=== PATIENT | male | born 1950 | race Caucasian/White ===

== ENCOUNTER 2016-07-20 17:05 | Emergency (ER) | payer MEDICARE ==
--- NOTE | 2016-07-20 17:28 | ED ---
Abdominal Pain HPI - General Stated Complaint: constipation Time Seen by Provider: 07/20/16 17:08 Source: RN notes reviewed - History of Present Illness Initial Comments: Patient is a 65-year-old male presents to the emergency room for evaluation of abdominal pain and constipation. Patient states he hasn't had a bowel movement since yesterday. Patient states he has taken Dulcolax, magnesium citrate and water with no relief of symptoms. Patient states his tried to give him an enema with no relief of symptoms. Patient denies any history of abdominal surgeries or bowel obstructions. Patient also states over the past day he has been having trouble urinating. Patient states he's only able to urinate flat. Patient denies any pain or burning or blood in the urine. Patient denies nausea or vomiting. Patient denies headache or dizziness. Patient denies chest pain shortness of breath. Patient does state he takes [place] daily. Patient denies any changes in medications or diet. Patient denies fevers or chills. Patient states he is still able to pass gas. - Related Data Home Medications Medication Instructions Recorded Confirmed HYDROcodone/APAP 7.5-325MG [[place] 1 tab PO Q6HR 07/20/16 07/20/16 7.5-325] Ibuprofen [Motrin] 800 mg PO Q8H PRN 07/20/16 07/20/16 Lisinopril [Zestril] 10 mg PO DAILY 07/20/16 07/20/16 Montelukast [Singulair] 10 mg PO QAM 07/20/16 07/20/16 Multivitamins, Thera [Multivitamin 1 tab PO DAILY 07/20/16 07/20/16 (formulary)] Omeprazole 20 mg PO DAILY 07/20/16 07/20/16 Simvastatin [Zocor] 40 mg PO QAM 07/20/16 07/20/16 Vitamin E 100 unit PO DAILY 07/20/16 07/20/16 metFORMIN HCL [Glucophage] 500 mg PO BID-W/MEALS 07/20/16 07/20/16 Previous Rx's Medication Instructions Recorded Hydrocortisone Acetate [Anusol-Hc] 25 mg RC BID PRN #10 supp.rect 07/20/16 Peg 3350-Na Sulf,Bicarb,Cl/KCl 4,000 ml PO DIRECTED #1 bottle 07/20/16 [Golytely Lavage] Allergies Allergy/AdvReac Type Severity Reaction Status Date / Time No Known Allergies Allergy Verified 07/20/16 18:03 Review of Systems ROS Statement: Those systems with pertinent positive or pertinent negative responses have been documented in the HPI. ROS Other: All systems not noted in ROS Statement are negative. General Exam - General Exam Comments Initial Comments: Laying in exam room, no acute distress. Limitations: no limitations General appearance: alert, in no apparent distress Head exam: Present: atraumatic, normocephalic, normal inspection Eye exam: Present: normal appearance ENT exam: Present: normal exam Neck exam: Present: normal inspection Respiratory exam: Present: normal lung sounds bilaterally. Absent: respiratory distress Cardiovascular Exam: Present: regular rate, normal rhythm, normal heart sounds GI/Abdominal exam: Present: soft, tenderness (Right lower quadrant, left lower quadrant), normal bowel sounds. Absent: distended, guarding, rebound, rigid Extremities exam: Present: normal inspection Back exam: Present: normal inspection Neurological exam: Present: alert, oriented X3, CN II-XII intact, normal gait Psychiatric exam: Present: normal affect, normal mood Skin exam: Present: warm, dry, intact, normal color. Absent: rash Course Vital Signs 07/20/16 17:11 Temperature 98 F Pulse Rate 72 Respiratory 22 Rate Blood Pressure 163/78 O2 Sat by Pulse 96 Oximetry - Reevaluation(s) Reevaluation #1: 07/20/16 19:43 Patient had a large bowel movement after enema administration. Patient states she is feeling somewhat better but feels he can go more. Rectal exam performed , no impaction noted. Patient states he would like another enema. Medical Decision Making - Medical Decision Making Patient is 65-year-old male presents to the emergency room for evaluation of constipation. Patient was given an enema with slight relief of symptoms. Patient requested a second enema. Patient was given a second enema again with some relief of symptoms. Patient is no longer complaining of abdominal pain. Patient now beginning to complain of rectal pain. Patient states he is able to urinate but only while lying flat. Urinalysis showed findings. Other labs showed no significant findings. Will send patient home with Golytely as needed and Anusol for rectal pain. Advised patient to follow-up with his primary care provider for reevaluation in 24-48 hours. Patient states he understands everything that was discussed with him. Return parameters discussed. Case discussed with Dr. Brunson. - Lab Data Result diagrams: 07/20/16 17:37 07/20/16 17:37 Lab Results 07/20/16 07/20/16 07/20/16 Range/Units 17:37 17:37 17:37 WBC 12.5 H (3.8-10.6) k/uL RBC 4.64 (4.30-5.90) m/uL Hgb 14.3 (13.0-17.5) gm/dL Hct 41.9 (39.0-53.0) % MCV 90.2 (80.0-100.0) fL MCH 30.9 (25.0-35.0) pg MCHC 34.2 (31.0-37.0) g/dL RDW 13.1 (11.5-15.5) % Plt Count 220 (150-450) k/uL Neutrophils % (Manual) 80.0 % Lymphocytes % (Manual) 12.0 % Monocytes % (Manual) 7.0 % Eosinophils % (Manual) 1.0 % Neutrophils # (Manual) 10.0 H (1.3-7.7) k/uL Lymphocytes # (Manual) 1.5 (1.0-4.8) k/uL Monocytes # (Manual) 0.9 (0-1.0) k/uL Eosinophils # (Manual) 0.1 (0-0.7) k/uL Nucleated RBCs 0 (0-0) /100 WBC Manual Slide Review Performed Sodium 136 L (137-145) mmol/L Potassium 3.8 (3.5-5.1) mmol/L Chloride 101 (98-107) mmol/L Carbon Dioxide 25 (22-30) mmol/L Anion Gap 10 mmol/L BUN 14 (9-20) mg/dL Creatinine 0.71 (0.66-1.25) mg/dL Est GFR (MDRD) Af Amer >60 (>60 ml/min/1.73 sqM) Est GFR (MDRD) Non-Af >60 (>60 ml/min/1.73 sqM) Glucose 123 H (74-99) mg/dL Calcium 9.3 (8.4-10.2) mg/dL Total Bilirubin 0.7 (0.2-1.3) mg/dL AST 35 (17-59) U/L ALT 35 (21-72) U/L Alkaline Phosphatase 56 (38-126) U/L Total Protein 7.9 (6.3-8.2) g/dL Albumin 4.4 (3.5-5.0) g/dL Amylase 48 (30-110) U/L Lipase 100 (23-300) U/L Urine Color Light Yellow Urine Appearance Clear (Clear) Urine pH 5.5 (5.0-8.0) Ur Specific [place] 1.009 (1.001-1.035) Urine Protein Negative (Negative) Urine Glucose (UA) Negative (Negative) Urine Ketones Negative (Negative) Urine Blood Negative (Negative) Urine Nitrite Negative (Negative) Urine Bilirubin Negative (Negative) Urine Urobilinogen <2.0 (<2.0) mg/dL Ur Leukocyte Esterase Negative (Negative) - Radiology Data Radiology results: report reviewed, image reviewed Disposition Clinical Impression: Constipation Disposition: HOME SELF-CARE Condition: Good Instructions: Constipation (ED), High Fiber Diet (ED) Additional Instructions: Drink plenty of water. Please follow up with primary care provider in 1-2 days. If any new symptom arises or symptoms worsen, return to ER as soon as possible. Prescriptions: Hydrocortisone Acetate [Anusol-Hc] 25 mg RC BID PRN #10 supp.rect PRN Reason: Pain Peg 3350-Na Sulf,Bicarb,Cl/KCl [Golytely Lavage] 4,000 ml PO DIRECTED #1 bottle Referrals: Andrea Manzano DO [Primary Care Provider] - 1-2 days Time of Disposition: 20:50
[2016-07-20 17:51] LABS: Appearance,Urine Clear (Clear); Bilirubin,Urine Negative (Negative); Glucose,Urine (UA) Negative (Negative); Ketones,Urine Negative (Negative); Leukocyte Esterase,Urine Negative (Negative); Nitrite,Urine Negative (Negative); PH, Urine 5.5 (5.0-8.0); Protein,Urine Negative (Negative); Specific Gravity,Urine 1.009 (1.001-1.035); UA Billing (MACRO vs. MICRO) CHEM; Urobilinogen,Urine <2.0 mg/dL (<2.0)
[2016-07-20 17:55] LABS: ALT 35 U/L (21-72); AST 35 U/L (17-59); Alkaline Phosphatase 56 U/L (38-126); Amylase 48 U/L (30-110); Anion Gap 10 mmol/L; Blood Urea Nitrogen 14 mg/dL (9-20); Calcium 9.3 mg/dL (8.4-10.2); Carbon Dioxide 25 mmol/L (22-30); Chloride 101 mmol/L (98-107); Glucose 123 mg/dL (74-99); Non-African American GFR(MDRD) >60 (>60 ml/min/1.73 sqM); Potassium 3.8 mmol/L (3.5-5.1); Sodium 136 mmol/L (137-145); Total Bilirubin 0.7 mg/dL (0.2-1.3); Total Protein 7.9 g/dL (6.3-8.2)
[2016-07-20 17:57] LABS: Aty Lym Flag Slight; CH 32.3; CHCM 35.9; HCT 41.9 % (39.0-53.0); HDW 2.82; HGB 14.3 gm/dL (13.0-17.5); MCH 30.9 pg (25.0-35.0); MCHC 34.2 g/dL (31.0-37.0); MCV 90.2 fL (80.0-100.0); MPO Flag Slight; Mean Platelet Volume 6.4; RBC 4.64 m/uL (4.30-5.90); RDW 13.1 % (11.5-15.5); WBC 12.5 k/uL (3.8-10.6); WBC (Perox) 12.61
--- NOTE | 2016-07-20 18:13 | XR ---
EXAMINATION TYPE: XR abdomen 2V DATE OF EXAM: 07/20/2016 5:55 PM COMPARISON: 07/26/2013 HISTORY: Abdominal pain TECHNIQUE: 4 views FINDINGS: There is no sign of intestinal obstruction or pneumoperitoneum. There are no pathologic edvin cifications over the kidneys. Lung bases are clear. There are some fluid levels apparently at the hep atic flexure of the colon. IMPRESSION: There are are probably colonic air-fluid levels consistent with diarrhea. No free air. Fl uid appears new compared to old exam.
[2016-07-20 19:00] LABS: Add Differential Manual Differential
[2016-07-20 19:05] LABS: Manual Review Performed; Nucleated Red Blood Cells 0 /100 WBC (0-0); Total Cells Counted 100
[2016-07-20 21:17] VITALS: BP 129/70; PULSE 69; RESP 18; TEMP 98.6
== END 2016-07-20 21:17 | disposition home or self-care (01) ==
LOC: EC 17:05
DX: K59.00 Constipation, unspecified (principal); K62.89 Other specified diseases of anus and rectum; Z79.899 Other long term (current) drug therapy; Z79.891 Long term (current) use of opiate analgesic; Z79.84 Long term (current) use of oral hypoglycemic drugs
CPT/HCPCS: 36415; 74020; 80053; 81003; 82150; 83690; 85025; 99284

== ENCOUNTER → 2016-09-03 | Outpatient (CLI) | payer MEDICARE ==
[2016-09-03 13:06] LABS: EKG EKG PERFORMED
[2016-09-03 13:24] LABS: Aty Lym Flag Slight; CH 31.9; CHCM 34.7; HCT 44.6 % (39.0-53.0); HDW 2.58; HGB 15.6 gm/dL (13.0-17.5); MCH 32.4 pg (25.0-35.0); MCHC 35.1 g/dL (31.0-37.0); MCV 92.3 fL (80.0-100.0); MPO Flag Slight; Mean Platelet Volume 6.7; RBC 4.84 m/uL (4.30-5.90); WBC 12.8 k/uL (3.8-10.6); WBC (Perox) 12.67
[2016-09-03 13:25] LABS: Appearance,Urine Clear (Clear); Bilirubin,Urine Negative (Negative); Glucose,Urine (UA) Negative (Negative); Ketones,Urine Negative (Negative); Leukocyte Esterase,Urine Negative (Negative); Nitrite,Urine Negative (Negative); Protein,Urine Negative (Negative); Specific Gravity,Urine 1.019 (1.001-1.035); UA Billing (MACRO vs. MICRO) CHEM; Urobilinogen,Urine <2.0 mg/dL (<2.0)
[2016-09-03 13:29] LABS: Anion Gap 10 mmol/L; Blood Urea Nitrogen 19 mg/dL (9-20); Calcium 9.5 mg/dL (8.4-10.2); Carbon Dioxide 26 mmol/L (22-30); Chloride 102 mmol/L (98-107); Glucose 168 mg/dL (74-99); Non-African American GFR(MDRD) >60 (>60 ml/min/1.73 sqM); Potassium 3.9 mmol/L (3.5-5.1); Sodium 138 mmol/L (137-145)
[2016-09-03 13:30] LABS: Partial Thromboplastin Time 23.2 sec (22.0-30.0)
--- NOTE | 2016-09-03 14:09 | XR ---
EXAMINATION TYPE: XR chest 2V DATE OF EXAM: 09/03/2016 HISTORY: Z01.818 Pre surgical. REFERENCE: NONE. FINDINGS: The lungs are clear. Pleural space are clear. Heart size is upper limits of normal. IMPRESSION: NO ACTIVE INTRATHORACIC ABNORMALITY.
[2016-09-03 14:19] LABS: Add Differential Manual Differential
[2016-09-03 14:21] LABS: Manual Review Performed; Nucleated Red Blood Cells 0 /100 WBC (0-0); RBC Morphology Normal; Total Cells Counted 100
== END | disposition home or self-care (01) ==
LOC: LABWHC1 12:43
PROVIDERS: ATTEND Orthopaedic Surgery Orthopaedic Surgery of the Spine
DX: Z01.818 Encounter for other preprocedural examination (principal); Z01.812 Encounter for preprocedural laboratory examination; M54.12 Radiculopathy, cervical region
CPT/HCPCS: 71020; 80048; 81003; 85025; 85610; 85730; 86850; 86900; 86901; 93005

== ENCOUNTER 2016-09-09 10:15 | Inpatient (IN) | payer MEDICARE ==
[2016-09-04 15:10] VITALS: BMI 38.9
[~2016-09-09 10:15] MED LIST: BACITRACIN 50,000 UNIT, POLYMYXIN B 500,000 UNIT in SODIUM CHLORIDE 0.9% IRRIGATIO 1,00... IRRIGATION ONE; DEXAMETHASONE SOD PHOSPHATE 10 MG/ML 1 ML VIAL IV ONE; FAMOTIDINE 20 MG/2 ML VIAL IV PRN; LIDOCAINE 1% 20 ML VIAL (10MG/ML) FOR IV START INTRADERMA PRN; MIDAZOLAM 2 MG/2 ML VIAL IV PRN; ONDANSETRON 4 MG/2 ML VIAL IVP PRN; ceFAZolin 3 GM in SODIUM CHLORIDE 0.9% 100 ML IVPB ONE
[2016-09-09] MEDS ORDERED: LIDOCAINE 1% 20 ML VIAL (10MG/ML) FOR IV START INTRADERMA ONE (11:09)
[2016-09-09] MEDS: LACTATED RINGERS 1,000 ML IV SCH (11:09)
[2016-09-09 11:19] LABS: Glucose,Whole Blood 115 mg/dL (75-99)
[2016-09-09] MEDS ORDERED: PHENYLEPHRINE-0.9% NACL SYG 1 MG/10 ML SYRINGE ONE (11:44)
[2016-09-09] MEDS ORDERED: GELATIN SPONGE,ABSORB (LARGE) 1 EACH SPONGE TOPICAL ONE (11:44)
[2016-09-09] MEDS ORDERED: MIDAZOLAM 2 MG/2 ML VIAL ONE (11:44)
[2016-09-09] MEDS ORDERED: DEXAMETHASONE SOD PHOS (MDV) 100 MG/10 ML VIAL ONE (11:44)
[2016-09-09] MEDS ORDERED: LIDOCAINE 1% INJ 10MG/ML (20 ML MDV) ONE (11:44)
[2016-09-09] MEDS ORDERED: LIDOCAINE 0.5%-EPI 1:200,000 50 ML VIAL SQ ONE (11:44)
[2016-09-09] MEDS ORDERED: SUCCINYLCHOLINE CHLORIDE VIAL 200 MG/10 ML VIAL IV ONE (11:44)
[2016-09-09] MEDS ORDERED: THROMBIN (BOVINE) 5,000 UNIT VIAL TOPICAL ONE (11:44)
[2016-09-09] MEDS ORDERED: fentaNYL (PF) 50 MCG/ML 2 ML AMP ONE (11:44)
[2016-09-09] MEDS ORDERED: PROPOFOL 10 MG/ML 20 ML VIAL IV ONE (11:44)
[2016-09-09] MEDS ORDERED: ePHEDrine 50 MG/ML 1 ML AMP ONE (11:44)
[2016-09-09] MEDS ORDERED: LACTATED RINGERS 1,000 ML IV ONE (12:47)
--- NOTE | 2016-09-09 13:12 | XR ---
Cervical spine HISTORY: Needle placement Single lateral view of the cervical spine No comparisons There is a needle present within the intervertebral disc space C5-6. Endotracheal tube is in place. T here is multiple level spondylosis. Incomplete visualization of the entire cervical spine. IMPRESSION: Orthopedic localization.
[2016-09-09] MEDS ORDERED: BENZOCAINE/MENTHOL LOZENG 1 EACH LOZENGE MUCOUS MEM PRN (13:22)
[2016-09-09] MEDS ORDERED: HYDROcodone/APAP 5-325MG 1 EACH TAB PO PRN (13:22)
[2016-09-09] MEDS ORDERED: HYDROmorphone 1 MG/ML 1 ML SYRINGE IVP PRN (13:22)
[2016-09-09] MEDS ORDERED: DIAZEPAM 5 MG TAB PO PRN (13:22)
--- NOTE | 2016-09-09 13:29 | P.OP ---
Date of Procedure: 09/09/16 Preoperative Diagnosis: Cervical stenosis C5 6, degenerative disc disease C5 6, and pain with lower extremity radiculopathy, history of prior fusion C6 7 Postoperative Diagnosis: Same Procedure(s) Performed: Implants: Anesthesia: GETA Pathology: none sent Condition: stable Disposition: PACU Indications for Procedure: Operative Findings: Description of Procedure: BRIEF OPERATIVE NOTE Preoperative Diagnosis: Cervical stenosis C5 6, degenerative disc disease 6, history of prior fusion C6 7, neck pain with upper extremity radiculopathy Postoperative Diagnosis: Same Procedure: Anterior cervical decompression and with discectomy fusion C5 6 Placement of interbody graft, allograft C5 6 Application of anterior cervical plate C5 6 Surgeon: Dr. Madsen Customer Contact Specialist: Dagoberto Baird is present throughout the entire the case persistence during positioning, dissection, exposure, visualization, and all crucial elements of the case as well as closure. Anesthesia: General anesthesia per Dr. Orosco Estimated blood loss: Approximately 50 mL Complications: None apparent Components implanted: K2M [place] anterior cervical plate system with 4 screws and a V Kos interbody allograft bone graft Disposition: To recovery room in good stable condition. OPERATIVE INDICATIONS The patient has had long-standing issues in their neck and upper extremities. More than 20 years ago he had undergone anterior cervical fusion at the C6 7 level. He ultimately did well with that procedure however over the past year he been having worsening symptoms in his neck with increased worsening over the past few months. His found have significant adjacent level degeneration at C5 6 with large osteophytic spurring and stenosis which correlated well with his neck and upper extremity symptoms. The patient has been through conservative treatment. He is not having any prolonged benefit despite aggressive conservative treatment. We discussed various treatment options including surgery, and the patient wishes to proceed with surgery We discussed the risk, patient's alternatives and benefits of surgery including but not limited to, risk of bleeding risk of infection, risk of need for further surgery, risk of decreased, loss of motion, muscle function, malunion nonunion, hardware failure , nerve damage, paralysis, heart attack, and . OPERATIVE SUMMARY After discussing all the risks, patient alternatives and benefits at length, the patient elected to proceed with surgical intervention, signed informed consent, and presented for their procedure. The patient was seen and examined in the preoperative holding area and the surgical site was marked. The patient was given antibiotics and brought to the operating room. The patient was positioned on the operating room table in a supine position being careful to pad any bony prominences and pressure points. The patient was sedated and intubated by anesthesia in standard fashion. Once the airway and C- spine were stabilized the patient's arms were padded and tucked at her side, with her shoulders gently taped. The head was placed in a donut pad with the neck in good neutral alignment and position. We were careful to maintain the patient's cervical spine and good neutral alignment and position throughout. The patient was prepped and draped in a normal standard fashion. An appropriate timeout and keystone protocol performed. We were able to proceed with the surgery. The local wound area was infiltrated with local anesthetic. An incision was made transversely approximately 2-1/2 cm over the appropriate levels at C5 6 on the right which was cephalad to his prior incision. Dissection was taken down subcutaneously to the level of the platysma which was split in line with its fibers. There was significant scar tissue formation and care was taken to protect soft tissue structures. Dissection was taken with a carotid approach, with the trachea and esophagus medial and the carotid sheath laterally. We dissected down to the anterior surface of the vertebral bodies. There are large osteophytes at the anterior aspect C5 6. Intraoperative x-ray was taken which showed a marker at the appropriate level of C5 6, though it is somewhat difficult to very clearly visualized we were able to see appropriately. With the appropriate level positively confirmed, we were able to proceed with discectomy at the appropriate levels of C5 6. All of the operative levels were exposed appropriately. The patient had all their twitches back, and there was no evidence of recurrent laryngeal issue. The wound was copiously irrigated and suctioned dry as had been done periodically throughout the case. At the appropriate level/levels, I established an annulotomy with an 11 blade scalpel. A discectomy was performed with a combination of pituitary rongeurs, curettes, a high-speed bur, and Kerrison rongeurs. The posterior longitudinal ligament was taken down as were any posterior osteophytes. There is significant disc degeneration and stenosis noted which was resolved with the decompression. This gave good central and bilateral foraminal decompression. There is no evidence of any dural tear or leak. The endplates were prepared with a high-speed bur. With the endplates in good parallel position, I was able to size for the appropriate size interbody graft. The wound was irrigated and suctioned dry the graft was prepared and malleted into position. It had good alignment and position with the anterior surface flush with the anterior surface of the vertebral bodies. This was done similarly the appropriate levels. With the grafts intact, I was able to measure and contour and appropriate sized plate. The plate was positioned at the midline over the appropriate levels at C5 6. Screw holes were established with a hand drill and drill guide. Screws were placed in good alignment and position with excellent bony purchase. They were seated under the locking device. The construct was checked and found to be stable. Intraoperative x-ray was taken which showed good alignment and position of the implants at the appropriate levels. There was no evidence of any dural tear or leak. Good hemostasis was maintained. The wound was copiously irrigated and suctioned dry as had been done periodically throughout the case. The platysma was closed with absorbable suture. The subcutaneous tissue was closed. The subcuticular tissue was closed with absorbable suture. The wound was cleaned and dried and dressed appropriately. A soft cervical collar was placed appropriately. The patient was woken up by anesthesia, extubated, transferred back gently to their hospital bed and brought to the recovery room in good stable condition. The patient will be admitted to the hospital for appropriate postoperative care , medical management and monitoring. We will continue to follow them closely about the postoperative course.
[2016-09-09 13:42] LABS: Glucose,Whole Blood 128 mg/dL (75-99)
[2016-09-09] MEDS: HYDROmorphone 1 MG/ML 1 ML SYRINGE IVP PRN ×4 (13:57→20:36)
[2016-09-09 17:18] LABS: Glucose,Whole Blood 187 mg/dL (75-99)
[2016-09-09] MEDS ORDERED: metFORMIN 500 MG TAB PO SCH (17:30)
[2016-09-09] MEDS: HYDROcodone/APAP 7.5-325MG 1 EACH TAB PO PRN ×2 (17:56→23:56)
[2016-09-09] MEDS: SODIUM CHLORIDE 0.9% 1,000 ML IV SCH (18:12)
[2016-09-09 20:44] VITALS: RESP 16
[2016-09-09 21:12] LABS: Glucose,Whole Blood 223 mg/dL (75-99)
[2016-09-09] MEDS: ceFAZolin 3 GM in SODIUM CHLORIDE 0.9% 100 ML IVPB SCH (21:56)
[2016-09-09 23:54] LABS: Glucose,Whole Blood 188 mg/dL (75-99)
[2016-09-10] MEDS: HYDROmorphone 1 MG/ML 1 ML SYRINGE IVP PRN (02:14)
[2016-09-10] MEDS: SODIUM CHLORIDE 0.9% 1,000 ML IV SCH (04:06)
[2016-09-10] MEDS: ceFAZolin 3 GM in SODIUM CHLORIDE 0.9% 100 ML IVPB SCH (04:07)
[2016-09-10] MEDS: LACTATED RINGERS 1,000 ML IV SCH (04:09)
[2016-09-10 06:57] LABS: Glucose,Whole Blood 128 mg/dL (75-99)
[2016-09-10] MEDS: HYDROcodone/APAP 7.5-325MG 1 EACH TAB PO PRN (07:15)
[2016-09-10] MEDS ORDERED: PANTOPRAZOLE 40 MG TABLET PO SCH (07:30)
--- NOTE | 2016-09-10 07:34 | XR ---
Cervical spine HISTORY: Hardware placement Single lateral view of the cervical spine submitted. Comparison to previous exam on same date earlier time. Endotracheal tube is in place. Anterior cervical fusion and discectomy has been performed at C5-6, fi xation is not well seen secondary to superimposed soft tissues. Alignment thought to be anatomic. IMPRESSION: Orthopedic follow-up.
[2016-09-10 08:03] VITALS: BP 132/63; PULSE 60; TEMP 97
[2016-09-10] MEDS ORDERED: LISINOPRIL 10 MG TAB PO SCH (09:00)
[2016-09-10] MEDS ORDERED: SENNOSIDES-DOCUSATE SODIUM 1 EACH TAB PO SCH ×2 (09:00)
[2016-09-10] MEDS ORDERED: MONTELUKAST 10 MG TAB PO SCH (09:00)
[2016-09-10] MEDS ORDERED: ATORVASTATIN 10 MG TAB PO SCH (09:00)
--- NOTE | 2016-09-10 09:38 | P.DS ---
Providers Date of admission: 09/09/16 10:15 Attending physician: Delia Madsen Primary care physician: [facility] Course: The patient presented on the day of admission as per his operative note. He feels that his right upper extremity significantly improved in terms of pain. His neck is doing well and he has been able tolerate diet though he has some some mild sore throat. Physical Exam The incision site is clean dry and intact. There is no erythema no drainage. There is no purulence no evidence of infection. His neck is soft and supple there is no drainage. Abdomen soft and nontender. Chest has good excursion with deep inspiration and expiration. The patient has active and passive range of motion intact at the upper and lower extremities. There is no acute change in neurologic status. 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 Hospital Course Postoperative day #1 status post anterior cervical discectomy and fusion at C67 for his cervical stenosis with degenerative disc disease and upper extremity radiculopathy. The patient has been making good progress postoperatively. His arm symptoms have improved and his Use these results thus far They have completed the prophylactic antibiotics without any signs or symptoms of infection. The patient has been able to advance their diet, and is tolerating diet adequately. The pain was initially controlled with IV medications and is now controlled appropriately with oral medications. The patient has been able to increase their mobilization. The patient has progressed appropriately. I think they are in good stable condition for discharge today. They will be sent home with appropriate prescriptions. I answered their questions to the best of my ability in a language that they can understand and they are agreeable with the plan. They will follow up as directed in approximately 2 weeks or sooner if he is having any problems. Patient Condition at Discharge: Good Plan - Discharge Summary New Discharge Prescriptions: New Diazepam [Valium] 5 mg PO BID PRN #20 tab PRN Reason: Spasms HYDROcodone/APAP 7.5-325MG [[place] 7.5-325] 1 tab PO Q6HR PRN #90 tab PRN Reason: Pain No Action Multivitamins, Thera [Multivitamin (formulary)] 1 tab PO DAILY metFORMIN HCL [Glucophage] 500 mg PO Q2D Simvastatin [Zocor] 20 mg PO QAM Omeprazole 20 mg PO DAILY Montelukast [Singulair] 10 mg PO QAM Lisinopril [Zestril] 10 mg PO DAILY Ibuprofen [Motrin] 800 mg PO Q8H PRN PRN Reason: Pain HYDROcodone/APAP 7.5-325MG [[place] 7.5-325] 1 tab PO Q6HR PRN PRN Reason: Pain Vitamin E 100 unit PO DAILY Bisacodyl [Dulcolax] 5 mg PO DAILY Discharge Medication List HYDROcodone/APAP 7.5-325MG [[place] 7.5-325] 1 tab PO Q6HR PRN 07/20/16 [History] Ibuprofen [Motrin] 800 mg PO Q8H PRN 07/20/16 [History] Lisinopril [Zestril] 10 mg PO DAILY 07/20/16 [History] Montelukast [Singulair] 10 mg PO QAM 07/20/16 [History] Multivitamins, Thera [Multivitamin (formulary)] 1 tab PO DAILY 07/20/16 [History ] Omeprazole 20 mg PO DAILY 07/20/16 [History] Simvastatin [Zocor] 20 mg PO QAM 07/20/16 [History] Vitamin E 100 unit PO DAILY 07/20/16 [History] metFORMIN HCL [Glucophage] 500 mg PO Q2D 07/20/16 [History] Bisacodyl [Dulcolax] 5 mg PO DAILY 09/04/16 [History] Diazepam [Valium] 5 mg PO BID PRN #20 tab 09/10/16 [Rx] HYDROcodone/APAP 7.5-325MG [[place] 7.5-325] 1 tab PO Q6HR PRN #90 tab 09/10/16 [ Rx] Follow up Appointment(s)/Referral(s): Delia Madsen DO [Doctor of Osteopathic Medicine] - 2 Weeks (With Dagoberto Khalil at Dr. Madsen's office) Activity/Diet/Wound Care/Special Instructions: Keep dressing clean. May shower with waterproof Tegaderm intact. Do not soak in a tub. On Wednesday May remove dressing and then may shower with area uncovered. Keep Steri-Strips intact and allow them to fray off on their own. Avoid heavy or rigorous activity. May ambulate to tolerance. Avoid repetitive bending twisting or lifting. No overhead activity.
[2016-09-10] MEDS ORDERED: MULTIVITAMINS, THERA 1 EACH TAB PO SCH (12:00)
== END 2016-09-10 12:55 | disposition home or self-care (01) | DRG 473 ==
LOC: 2ORMAIN 10:15 → 3SUR 13:30
PROVIDERS: ADMIT Family Medicine; ATTEND Orthopaedic Surgery Orthopaedic Surgery of the Spine
PROC: 0RB30ZZ Excision of Cervical Vertebral Disc, Open Approach (ICD-10-PCS; 2016-09-09)
PROC: 0RG10K0 Fusion of Cervical Vertebral Joint with Nonautologous Tissue Substitute, Anterior Approach, Anterior Column, Open Approach (ICD-10-PCS; principal; 2016-09-09 12:20)
DX: M48.02 Spinal stenosis, cervical region (principal); I10 Essential (primary) hypertension; Z98.1 Arthrodesis status; M50.122 Cervical disc disorder at C5-C6 level with radiculopathy; H91.90 Unspecified hearing loss, unspecified ear; E11.9 Type 2 diabetes mellitus without complications; Z79.84 Long term (current) use of oral hypoglycemic drugs; Z79.899 Other long term (current) drug therapy; Z87.891 Personal history of nicotine dependence
CPT/HCPCS: 72020; 86850; 86900; 86901

== ENCOUNTER 2019-08-15 19:35 | Emergency (ER) | payer MEDICARE ==
[2019-08-15 19:44] VITALS: RESP 18; TEMP 98.2
--- NOTE | 2019-08-15 19:59 | ED ---
Extremity Problem HPI - General Chief complaint: Extremity Problem,Nontraumatic Stated complaint: Leg Pain/Swelling Time Seen by Provider: 08/15/19 19:49 Source: patient, RN notes reviewed Mode of arrival: ambulatory Limitations: no limitations - History of Present Illness Initial comments: 69-year-old male presents emergency Department with chief complaint of right leg pain, swelling. Patient states she's had some soreness for last 1 week. 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 Patient states he has to get out unloading move things frequently he may have injured it this way there is concern about possible blood clot no history DVT no chest pain or shortness breath. - Related Data Home Medications Medication Instructions Recorded Confirmed HYDROcodone/APAP 7.5-325MG [[place] 1 tab PO Q6HR PRN 07/20/16 09/09/16 7.5-325] Ibuprofen [Motrin] 800 mg PO Q8H PRN 07/20/16 09/09/16 Lisinopril [Zestril] 10 mg PO DAILY 07/20/16 09/09/16 Montelukast [Singulair] 10 mg PO QAM 07/20/16 09/09/16 Multivitamins, Thera [Multivitamin 1 tab PO DAILY 07/20/16 09/09/16 (formulary)] Omeprazole 20 mg PO DAILY 07/20/16 09/09/16 Simvastatin [Zocor] 20 mg PO QAM 07/20/16 09/09/16 Vitamin E 100 unit PO DAILY 07/20/16 09/09/16 metFORMIN HCL [Glucophage] 500 mg PO Q2D 07/20/16 09/09/16 Bisacodyl [Dulcolax] 5 mg PO DAILY 09/04/16 09/09/16 Previous Rx's Medication Instructions Recorded Diazepam [Valium] 5 mg PO BID PRN #20 tab 09/10/16 HYDROcodone/APAP 7.5-325MG [[place] 1 tab PO Q6HR PRN #90 tab 09/10/16 7.5-325] Allergies Allergy/AdvReac Type Severity Reaction Status Date / Time Iodinated Contrast Media AdvReac BODY FELT Verified 09/04/16 14:39 [Iodinated Contrast Media - FROZEN Oral and] Review of Systems ROS Statement: Those systems with pertinent positive or pertinent negative responses have been documented in the HPI. ROS Other: All systems not noted in ROS Statement are negative. Past Medical History Past Medical History: Diabetes Mellitus, GERD/Reflux, Hearing Disorder / Deafness, Hyperlipidemia, Hypertension, Musculoskeletal Disorder Additional Past Medical History / Comment(s): RT UPPER ARM NT. PAIN IN NECK, LOWER BACK - HX OF PAIN INJ.. History of Any Multi-Drug Resistant Organisms: MRSA Date of last positivie culture/infection: 2006 MDRO Source:: RT WAISTLINE, TESTICLE Past Surgical History: Orthopedic Surgery Additional Past Surgical History / Comment(s): Repaired ruptured disks in back. Right knee surgery. Bilat shoulder surgery. Past Anesthesia/Blood Transfusion Reactions: No Reported Reaction Past Psychological History: No Psychological Hx Reported Past Alcohol Use History: None Reported - Past Family History Father Family Medical History: Cancer Mother Family Medical History: Cancer General Exam Limitations: no limitations General appearance: alert, in no apparent distress Head exam: Present: atraumatic, normocephalic, normal inspection Neck exam: Present: normal inspection. Absent: tenderness, meningismus, lymphadenopathy Respiratory exam: Present: normal lung sounds bilaterally. Absent: respiratory distress, wheezes, rales, rhonchi, stridor Cardiovascular Exam: Present: regular rate, normal rhythm, normal heart sounds. Absent: systolic murmur, diastolic murmur, rubs, gallop, clicks Extremities exam: Present: other (Right lower extremity there is minimal tenderness to the calf, minimal swelling no erythema no lesions or sores, pedal pulses are equal bilaterally. Equal color equal warmth) Neurological exam: Present: reflexes normal. Absent: motor sensory deficit Skin exam: Present: warm, dry, intact, normal color. Absent: rash Course Vital Signs 08/15/19 19:39 Temperature 98.2 F Pulse Rate 93 Respiratory 18 Rate Blood Pressure 150/87 O2 Sat by Pulse 98 Oximetry Medical Decision Making - Medical Decision Making US neg FOR ACUTE DVT. SYMPTOMS ARE CONSISTENT WITH A RIGHT LEG STRAIN. PULSES ARE EQUAL BILATERALLY NEUROVASCULAR INTACT. PATIENT BE DISCHARGED WITH CONSERVATIVE TREATMENT. FOLLOW-UP WAS DISCUSSED. Disposition Clinical Impression: Muscle strain of right lower leg, Right leg pain Disposition: HOME SELF-CARE Condition: Stable Instructions (If sedation given, give patient instructions): Leg Pain (ED) Additional Instructions: Please return to the Emergency Department if symptoms worsen or any other concerns. Is patient prescribed a controlled substance at d/c from ED?: No Referrals: Andrea Manzano DO [Primary Care Provider] - 1-2 days Time of Disposition: 21:37
--- NOTE | 2019-08-15 21:35 | US ---
EXAMINATION TYPE: US venous doppler duplex LE RT DATE OF EXAM: 08/15/2019 9:15 PM COMPARISON: NONE CLINICAL HISTORY: pain. Pain and swelling x 1 day. No hx of DVT. Multiple right knee surgeries. Patie nt does not take blood thinners. SIDE PERFORMED: Right TECHNIQUE: The lower extremity deep venous system is examined utilizing real time linear array sonog lisha with graded compression, doppler sonography and color-flow sonography. VESSELS IMAGED: External Iliac Vein (EIV) Common Femoral Vein Deep Femoral Vein Greater Saphenous Vein * Femoral Vein Popliteal Vein Small Saphenous Vein * Proximal Calf Veins (* superficial vessels) Right Leg: No evidence of DVT in veins imaged at this time from prox calf veins to EIV. IMPRESSION: Negative exam. No evidence of deep vein thrombosis in the right leg.
[2019-08-15 21:58] VITALS: BP 164/90; PULSE 82
== END 2019-08-15 20:50 | disposition home or self-care (01) ==
LOC: EC 19:35
DX: S86.911A Strain of unspecified muscle(s) and tendon(s) at lower leg level, right leg, initial encounter (principal); E11.9 Type 2 diabetes mellitus without complications; E78.5 Hyperlipidemia, unspecified; I10 Essential (primary) hypertension; K21.9 Gastro-esophageal reflux disease without esophagitis; Z91.041 Radiographic dye allergy status; Z79.899 Other long term (current) drug therapy; Z79.84 Long term (current) use of oral hypoglycemic drugs; Z98.890 Other specified postprocedural states; Z86.14 Personal history of Methicillin resistant Staphylococcus aureus infection; X50.9XXA Other and unspecified overexertion or strenuous movements or postures, initial encounter
CPT/HCPCS: 99283

== ENCOUNTER → 2019-12-27 | Outpatient (CLI) | payer MEDICARE ==
[2019-12-27 09:01] LABS: Basophils % (A) 1 %; Eosinophils # (A) 0.2 k/uL (0-0.7); Eosinophils % (A) 3 %; HCT 46.5 % (39.0-53.0); HGB 15.5 gm/dL (13.0-17.5); Lymphocytes # (A) 1.8 k/uL (1.0-4.8); Lymphocytes % (A) 26 %; MCHC 33.3 g/dL (31.0-37.0); MCV 93.2 fL (80.0-100.0); Mean Platelet Volume 6.8; Monocytes # (A) 0.7 k/uL (0-1.0); Monocytes % (A) 9 %; Neutrophils # (A) 4.1 k/uL (1.3-7.7); Neutrophils % (A) 57 %; Platelet Count 284 k/uL (150-450); RBC 4.98 m/uL (4.30-5.90); RDW 13.1 % (11.5-15.5); WBC 7.1 k/uL (3.8-10.6)
[2019-12-27 18:22] LABS: African American GFR (CKD) 107.1 (60.0-200.0); Albumin 4.3 g/dL (3.80-4.90); Albumin/Globulin Ratio 1.79 (1.60-3.17); Anion Gap 10.1 mmol/L (4.00-12.00); BUN/Creat Ratio 18.75 Ratio (12.00-20.00); Calcium 9.1 mg/dL (8.7-10.3); Carbon Dioxide 22.9 mmol/L (21.6-31.8); Chol/HDL Ratio 4.02; Globulin 2.4 g/dL (1.6-3.3); LDL Cholesterol,Calculated 117.8 mg/dL (0.0-131.0); Non-African American GFR(CKD) 92.4 (60.0-200.0); Potassium 4.2 mmol/L (3.5-5.5); Total Bilirubin 0.5 mg/dL (0.3-1.2); Total Protein 6.7 g/dL (6.2-8.2); VLDL Calculation 18.2 mg/dL (5.00-40.00)
[2019-12-27 18:36] LABS: PSA Annual Screen 0.2 ng/mL (0.0-4.0)
[2019-12-27 21:19] LABS: Hemoglobin A1C 6.8 % (4.0-6.0)
== END | disposition home or self-care (01) ==
LOC: LABWHC1 07:28
PROVIDERS: ATTEND Family Medicine
DX: Z00.00 Encounter for general adult medical examination without abnormal findings (principal); I10 Essential (primary) hypertension; E11.9 Type 2 diabetes mellitus without complications; E78.5 Hyperlipidemia, unspecified; Z12.5 Encounter for screening for malignant neoplasm of prostate
CPT/HCPCS: 84439; 80061; 80053; 84443; 85025; 83036; 36415; G0103

== ENCOUNTER 2022-03-20 21:38 | Inpatient (IN) | payer MEDICARE ==
[2022-03-20] MEDS ORDERED: MORPHINE SULFATE 4 MG/ML SYRINGE IV STA (21:58)
[2022-03-20] MEDS ORDERED: ONDANSETRON 4 MG/2 ML VIAL IVP STA (21:58)
[2022-03-20] MEDS ORDERED: SODIUM CHLORIDE 0.9% 1,000 ML IV STA (21:58)
--- NOTE | 2022-03-20 21:59 | ED ---
Chest Pain HPI - General Chief Complaint: Chest Pain Stated Complaint: Chest pain Time Seen by Provider: 03/20/22 21:42 Source: patient, RN notes reviewed, old records reviewed - History of Present Illness MD Complaint: chest pain - Related Data Home Medications Medication Instructions Recorded Confirmed Montelukast [Singulair] 10 mg PO DAILY 07/20/16 03/21/22 Omeprazole 20 mg PO HS 07/20/16 03/21/22 Ascorbic Acid [Vitamin C] 1,000 mg PO DAILY 03/21/22 03/21/22 Cholecalciferol [Vitamin D3 (25 50 mcg PO DAILY 03/21/22 03/21/22 Mcg = 1000 Iu)] Cyanocobalamin (Vitamin B-12) 1,000 mcg PO DAILY 03/21/22 03/21/22 [Vitamin B-12] Cyclobenzaprine [Flexeril] 10 mg PO HS PRN 03/21/22 03/21/22 Gabapentin 600 mg PO BID 03/21/22 03/21/22 Zinc Gluconate [Zinc] 50 mg PO DAILY 03/21/22 03/21/22 Previous Rx's Medication Instructions Recorded Aspirin 81 mg PO DAILY #30 tab 03/22/22 Atorvastatin [Lipitor] 40 mg PO HS #30 tab 03/22/22 Nitroglycerin Sl Tabs [Nitrostat] 0.4 mg SUBLINGUAL Q5M PRN #20 tab 03/22/22 Prasugrel [Effient] 10 mg PO DAILY #30 tab 03/22/22 metFORMIN HCL [Glucophage] 850 mg PO BID #60 tab 03/22/22 Metoprolol Tartrate [Lopressor] 12.5 mg PO BID #60 tab 03/23/22 lisinopriL [Zestril] 5 mg PO DAILY #30 tab 03/23/22 Allergies Allergy/AdvReac Type Severity Reaction Status Date / Time Iodinated Contrast Media AdvReac BODY FELT Verified 03/21/22 11:42 [Iodinated Contrast Media - FROZEN Oral and] Review of Systems ROS Statement: Those systems with pertinent positive or pertinent negative responses have been documented in the HPI. ROS Other: All systems not noted in ROS Statement are negative. EKG Findings - EKG Comments: EKG Findings:: EKG shows 79 CO 209 QRS 153 QTc 460 Past Medical History Past Medical History: Diabetes Mellitus, GERD/Reflux, Hearing Disorder / Deafness, Hyperlipidemia, Hypertension, Musculoskeletal Disorder Additional Past Medical History / Comment(s): RT UPPER ARM NT. PAIN IN NECK, LOWER BACK - HX OF PAIN INJ.. History of Any Multi-Drug Resistant Organisms: MRSA Date of last positivie culture/infection: 2006 MDRO Source:: RT WAISTLINE, TESTICLE Past Surgical History: Orthopedic Surgery Additional Past Surgical History / Comment(s): Repaired ruptured disks in back. Right knee surgery. Bilat shoulder surgery. Past Anesthesia/Blood Transfusion Reactions: No Reported Reaction Past Psychological History: No Psychological Hx Reported Past Alcohol Use History: None Reported - Past Family History Father Family Medical History: Cancer Mother Family Medical History: Cancer Course Vital Signs 03/20/22 03/20/22 03/20/22 21:41 21:58 22:10 Temperature 97.9 F Pulse Rate 86 82 80 Pulse Rate [ Bilateral] Respiratory 16 18 18 Rate Blood Pressure 171/86 163/97 104/70 O2 Sat by Pulse 98 Oximetry 03/20/22 03/21/22 03/21/22 22:29 00:28 03:49 Temperature Pulse Rate 80 68 71 Pulse Rate [ Bilateral] Respiratory 18 20 18 Rate Blood Pressure 130/80 139/67 128/69 O2 Sat by Pulse 97 98 96 Oximetry 03/21/22 03/21/22 03/21/22 05:02 06:48 07:30 Temperature Pulse Rate 70 Pulse Rate [ 77 Bilateral] Respiratory 18 12 Rate Blood Pressure 125/73 O2 Sat by Pulse 95 Oximetry 03/21/22 03/21/22 03/21/22 07:40 07:50 08:14 Temperature Pulse Rate 75 69 85 Pulse Rate [ Bilateral] Respiratory 20 16 16 Rate Blood Pressure 151/77 135/79 151/79 O2 Sat by Pulse 99 96 98 Oximetry 03/21/22 03/21/22 03/21/22 09:52 10:31 11:37 Temperature Pulse Rate 75 75 70 Pulse Rate [ Bilateral] Respiratory 16 18 20 Rate Blood Pressure 130/67 130/86 144/73 O2 Sat by Pulse 98 98 98 Oximetry 03/21/22 03/21/22 03/21/22 12:08 12:45 13:49 Temperature Pulse Rate 68 75 74 Pulse Rate [ Bilateral] Respiratory 17 16 16 Rate Blood Pressure 150/83 134/89 141/74 O2 Sat by Pulse 97 99 99 Oximetry - Reevaluation(s) Reevaluation #1: 03/20/22 medical record is reviewed was made aware of patients chief complaint and his chief complaint of chest pain and history upon arrival also evaluated both inital and subsequent EKG showing no ST elevation was called to a seperate patient suffering from a Cardiopulmonary Arrest in a trauma room I was made aware of patients elevated troponin elevation and did write admission orders for NSTEMI as well as contacted admitting physician Patient had no change in condition here in the emergency department Studies CXR showing no acute disease Reevaluation #2: After was home doing charting was made aware that it may not have visited this patient's room and updated the family regarding condition and results and does not think that was the case initially I did open this chart noticed there was no HPI or a physical examination documented on the chart making a increased likelihood that this was a possibility of not making contact with patient - Consultations Consultation #1: Spoke with EM regarding admission and they are agreeable for admission and will see the patient in the ED Chest Pain MDM - Differential Diagnosis AMI, ACS, PE, Pericarditis, Pericardial Tamponade, Pneumonia, Pleurisy-Other, Valvular Heart Disease, GERD, Esophageal Spasm, Biliary Colic, Pancreatitis, Thoracic Aortic Dissection, Pneumomediastinum, Pneumothorax/Tension, Chest Wall Syndrome, Mediastinitis, Hyperventilation Syndrome, Panic Disorder/Anxiety - MDM 71 male to the ED co CP, found to have no acute EKG changes, mildly elevated troponin, normal CXR, to be admitted for cardiology evlauation re ACS. Disposition Clinical Impression: Chest pain, Acute non-ST elevation myocardial infarction (NSTEMI) Disposition: ADMITTED IP TO THIS HOSP Condition: Stable Is patient prescribed a controlled substance at d/c from ED?: No Time of Disposition: 22:35
[2022-03-20 22:11] LABS: HCT 44.1 % (39.0-53.0); HGB 15.5 gm/dL (13.0-17.5); MCH 32.6 pg (25.0-35.0); MCHC 35.2 g/dL (31.0-37.0); MCV 92.7 fL (80.0-100.0); Mean Platelet Volume 7.1; Platelet Count 227 k/uL (150-450); RBC 4.75 m/uL (4.30-5.90); RDW 12.8 % (11.5-15.5); WBC 14.1 k/uL (3.8-10.6)
[2022-03-20 22:25] LABS: ALT 25 U/L (4-49); AST 27 U/L (17-59); African American GFR (CKD) >90 (>60 ml/min/1.73 sqM); Albumin 4.4 g/dL (3.5-5.0); Alkaline Phosphatase 70 U/L (38-126); Anion Gap 10 mmol/L; Blood Urea Nitrogen 22 mg/dL (9-20); Carbon Dioxide 22 mmol/L (22-30); Chloride 106 mmol/L (98-107); Glucose 222 mg/dL (74-99); INR 0.9 (<1.2); Lipase 68 U/L (23-300); Non-African American GFR(CKD) 85 (>60 ml/min/1.73 sqM); Partial Thromboplastin Time 24.7 sec (22.0-30.0); Potassium 3.9 mmol/L (3.5-5.1); Prothrombin Time 9.8 sec (9.0-12.0); Sodium 138 mmol/L (137-145); Total Bilirubin 0.5 mg/dL (0.2-1.3); Total Protein 7.5 g/dL (6.3-8.2)
[2022-03-20] MEDS ORDERED: HEPARIN SODIUM 1,000 UN/ML (10ML VL) IV ONE (22:38)
[2022-03-20] MEDS ORDERED: MORPHINE SULFATE 4 MG/ML SYRINGE IV PRN (22:38)
--- NOTE | 2022-03-20 22:43 | XR ---
EXAMINATION TYPE: XR chest 1V portable DATE OF EXAM: 03/20/2022 COMPARISON: 09/03/2016 HISTORY: Chest pain TECHNIQUE: Single view FINDINGS: There is no heart failure nor confluent pneumonic infiltrate. Costophrenic angles are clear . There are chest leads. There is cervical spine fusion surgery. IMPRESSION: No active cardiopulmonary disease. No adverse change
[2022-03-20] MEDS ORDERED: HEPARIN SOD,PORK IN 0.45% NACL 25,000 UNIT in 0.45% NACL 1 250ML.BAG IV SCH (22:45)
[2022-03-20 23:00] LABS: Eosinophils # (M) 0.28 k/uL (0-0.7); Lymphocytes # (M) 1.97 k/uL (1.0-4.8); Monocytes # (M) 1.55 k/uL (0-1.0); Neutrophils # (M) 10.29 k/uL (1.3-7.7); Neutrophils % (M) 73 %; Nucleated Red Blood Cells 0 /100 WBC (0-0); Total Cells Counted 100
[2022-03-21] MEDS ORDERED: NITROGLYCERIN OINT 1 INCH/GM PACKET TOPICAL STA (00:49)
[2022-03-21] MEDS: NITROGLYCERIN SL TABS 0.4 MG TAB SUBLINGUAL PRN ×4 (07:48→08:03)
[2022-03-21] MEDS ORDERED: NITROGLYCERIN OINT 1 INCH/GM PACKET TOPICAL SCH (08:15)
[2022-03-21] MEDS ORDERED: ASPIRIN 325 MG TAB PO SCH (09:00)
[2022-03-21] MEDS ORDERED: NITROGLYCERIN 0.1MG/HR PATCH TRANSDERM SCH (09:00)
[2022-03-21] MEDS ORDERED: NITROGLYCERIN-D5W PMX 50 MG in DEXTROSE/WATER 1 250ML.BAG IV SCH (10:15)
[2022-03-21] MEDS ORDERED: DEXTROSE 50% SYRINGE 50 ML IVP PRN ×2 (10:16)
[2022-03-21] MEDS ORDERED: ATORVASTATIN 80 MG TAB PO STA (11:11)
[2022-03-21] MEDS ORDERED: NITROGLYCERIN SL TABS 0.4 MG TAB SUBLINGUAL PRN ×2 (11:11→15:47)
[2022-03-21] MEDS ORDERED: ALPRAZolam 0.25 MG TAB PO PRN (11:11)
[2022-03-21] MEDS ORDERED: ASPIRIN 81 MG PO STA (11:11)
--- NOTE | 2022-03-21 11:20 | P.CRDCN ---
History of Present Illness Consult date: 03/21/22 History of present illness: History of Present Illness: The patient is a 71-year-old male with a known history of hypertension, hyperlipidemia, diabetes mellitus and chronic tobacco use who presented with chest discomfort, across the chest associated with some radiation to the arm. His discomfort started at rest. He denies any prior similar symptoms. 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 He denies any prior cardiac history. He has no similar symptoms in the past. He continues to have mild discomfort at this time but better. He denies any dizziness, palpitations or syncope. He denies any history of malig nant arrhythmia. In the emergency room he had mild troponin elevation. His EKG showed sinus mechanism with right bundle branch block and left axis deviation. The right bundle branch block was noted in 2017. Medications: Lisinopril 10 mg daily, metformin, simvastatin 20 g daily, Singulair, Motrin, omeprazole Review of Systems: Respiratory: He has a history of chronic tobacco use but denies any recent wheezing or cough GI: No nausea or vomiting . No history of peptic ulcer disease. No recent GI bleed. : No hematuria or dysuria. Nervous System: No stroke or seizure. Physical Examination: 71-year-old male, alert oriented no apparent distress ,Blood pressure 130/80, Heart rate 70 Head: Normocephalic. Eyes: Sclerae nonicteric. Neck: Good carotid upstroke, no bruit, no jugular venous distention. Lungs: Clear to auscultation. Heart: Regular rate and rhythm, S1-S2, no S3, no rub. No murmur. Abdomen: Soft nontender, positive bowel sounds no organomegaly. Extremities: No edema, intact distal pulses. Labs: White blood cell 14.1, hemoglobin 15.5, potassium 3.9, BUN 22, creatinine 0.92. Troponin 0.075, 0.091, 0.127. Chest x-ray with no acute infiltrate EKG: Sinus mechanism with right bundle branch block and left axis deviation Impression: 1. Acute chest discomfort with evidence of non-STEMI 2. Hypertension 3. Hyperlipidemia 4. Diabetes mellitus 5. Chronic tobacco use Plan: 1. Obtain an echocardiogram with Doppler 2. Proceed with cardiac catheterization, the risks and the complications were discussed with the patient and his family and they are in full understanding and agreement 3. Continue IV heparin 4. Nitrate 5. Depending on his progress further recommendations will be made, thank you for this consult we will follow with you. Past Medical History Past Medical History: Diabetes Mellitus, GERD/Reflux, Hearing Disorder / Deafness, Hyperlipidemia, Hypertension, Musculoskeletal Disorder Additional Past Medical History / Comment(s): RT UPPER ARM NT. PAIN IN NECK, LOWER BACK - HX OF PAIN INJ.. History of Any Multi-Drug Resistant Organisms: MRSA Date of last positivie culture/infection: 2006 MDRO Source:: RT WAISTLINE, TESTICLE Past Surgical History: Orthopedic Surgery Additional Past Surgical History / Comment(s): Repaired ruptured disks in back. Right knee surgery. Bilat shoulder surgery. Past Anesthesia/Blood Transfusion Reactions: No Reported Reaction Past Psychological History: No Psychological Hx Reported Past Alcohol Use History: None Reported - Past Family History Father Family Medical History: Cancer Mother Family Medical History: Cancer Medications and Allergies Home Medications Medication Instructions Recorded Confirmed Type HYDROcodone/APAP 7.5-325MG [[place] 1 tab PO Q6HR PRN 07/20/16 09/09/16 History 7.5-325] Ibuprofen [Motrin] 800 mg PO Q8H PRN 07/20/16 09/09/16 History Montelukast [Singulair] 10 mg PO QAM 07/20/16 09/09/16 History Multivitamins, Thera [Multivitamin 1 tab PO DAILY 07/20/16 09/09/16 History (formulary)] Omeprazole 20 mg PO DAILY 07/20/16 09/09/16 History Simvastatin [Zocor] 20 mg PO QAM 07/20/16 09/09/16 History Vitamin E 100 unit PO DAILY 07/20/16 09/09/16 History lisinopriL [Zestril] 10 mg PO DAILY 07/20/16 09/09/16 History metFORMIN HCL [Glucophage] 500 mg PO Q2D 07/20/16 09/09/16 History bisacodyL [Dulcolax] 5 mg PO DAILY 09/04/16 09/09/16 History HYDROcodone/APAP 7.5-325MG [[place] 1 tab PO Q6HR PRN #90 tab 09/10/16 Rx 7.5-325] diazePAM [Valium] 5 mg PO BID PRN #20 tab 09/10/16 Rx Allergies Allergy/AdvReac Type Severity Reaction Status Date / Time Iodinated Contrast Media AdvReac BODY FELT Verified 03/20/22 21:44 [Iodinated Contrast Media - FROZEN Oral and] Physical Exam Vitals: Vital Signs Temp Pulse Pulse Resp BP Pulse Ox 03/21/22 10:31 75 18 130/86 98 03/21/22 09:52 75 16 130/67 98 03/21/22 08:14 85 16 151/79 98 03/21/22 07:50 69 16 135/79 96 03/21/22 07:40 75 20 151/77 99 03/21/22 07:30 77 03/21/22 06:48 70 12 125/73 95 03/21/22 05:02 18 03/21/22 03:49 71 18 128/69 96 03/21/22 00:28 68 20 139/67 98 03/20/22 22:29 80 18 130/80 97 03/20/22 22:10 80 18 104/70 03/20/22 21:58 82 18 163/97 03/20/22 21:41 97.9 F 86 16 171/86 98 Intake and Output 03/20/22 03/21/22 03/21/22 22:59 06:59 14:59 Other: Weight 113.398 kg Results 03/20/22 22:05 03/20/22 22:05 Cardiac Enzymes 03/20/22 03/20/22 03/20/22 Range/Units 22:05 22:05 23:13 AST 27 (17-59) U/L Troponin I 0.075 H* 0.091 H* (0.000-0.034) ng/mL 03/21/22 Range/Units 00:21 AST (17-59) U/L Troponin I 0.127 H* (0.000-0.034) ng/mL Coagulation 03/20/22 03/21/22 Range/Units 22:05 05:20 PT 9.8 (9.0-12.0) sec APTT 24.7 69.0 H (22.0-30.0) sec CBC 03/20/22 Range/Units 22:05 WBC 14.1 H (3.8-10.6) k/uL RBC 4.75 (4.30-5.90) m/uL Hgb 15.5 (13.0-17.5) gm/dL Hct 44.1 (39.0-53.0) % Plt Count 227 (150-450) k/uL Comprehensive Metabolic Panel 03/20/22 Range/Units 22:05 Sodium 138 (137-145) mmol/L Potassium 3.9 (3.5-5.1) mmol/L Chloride 106 (98-107) mmol/L Carbon Dioxide 22 (22-30) mmol/L BUN 22 H (9-20) mg/dL Creatinine 0.92 (0.66-1.25) mg/dL Glucose 222 H (74-99) mg/dL Calcium 9.0 (8.4-10.2) mg/dL AST 27 (17-59) U/L ALT 25 (4-49) U/L Alkaline Phosphatase 70 (38-126) U/L Total Protein 7.5 (6.3-8.2) g/dL Albumin 4.4 (3.5-5.0) g/dL Current Medications Generic Name Dose Route Start Last Admin Trade Name Freq PRN Reason Stop Dose Admin Aspirin 325 mg 03/21/22 09:00 03/21/22 09:07 Aspirin 325 Mg Tab PO 325 mg DAILY BATOOL Administration Aspirin 81 mg 03/21/22 11:11 Aspirin 325 Mg Tab PO 03/21/22 11:12 ONCE STA Dextrose/Water 25 ml 03/21/22 10:16 Dextrose 50% Syringe 50 Ml IVP PER PROTOCOL PRN Hypoglycemia Protocol Dextrose/Water 50 ml 03/21/22 10:16 Dextrose 50% Syringe 50 Ml IVP PER PROTOCOL PRN Hypoglycemia Protocol Heparin Sodium/Sodium Chloride 250 mls @ 10 mls/hr 03/20/22 22:45 03/20/22 22:58 25,000 unit/ Sodium Chloride IV 8.8185 units/kg/hr .Q24H BATOOL 10 mls/hr Administration Protocol 8.8185 UNITS/KG/HR Nitroglycerin/Dextrose 50 mg/ 250 mls @ 1.5 mls/hr 03/21/22 10:15 03/21/22 1 0:17 IV Solution IV 10 mcg/min .Q24H BATOOL 3 mls/hr Administration Protocol 5 MCG/MIN Insulin Aspart 0 unit 03/21/22 12:30 Insulin Aspart (Novolog) 100 Unit/Ml Vial SQ ACHS [facility] Protocol Morphine Sulfate 4 mg 03/20/22 22:38 03/21/22 09:06 Morphine Sulfate 4 Mg/Ml Syringe IV 4 mg Q6HR PRN Administration Chest Pain Nitroglycerin 0.4 mg 03/20/22 22:38 03/21/22 08:03 Nitroglycerin Sl Tabs 0.4 Mg Tab SUBLINGUAL 0.4 mg Q5M PRN Administration Chest Pain Nitroglycerin 0.4 mg 03/21/22 11:11 Nitroglycerin Sl Tabs 0.4 Mg Tab SUBLINGUAL Q5M PRN Chest Pain Intake and Output 03/20/22 03/21/22 03/21/22 22:59 06:59 14:59 Other: Weight 113.398 kg 03/20/22 22:05 03/20/22 22:05
[2022-03-21 11:46] LABS: Glucose,Whole Blood 128 mg/dL (70-110)
[2022-03-21] MEDS: INSULIN ASPART (NovoLOG) 100 UNIT/ML VIAL SQ SCH ×3 (12:08→20:44)
[2022-03-21 12:09] LABS: Chol/HDL Ratio 3.63 Ratio; LDL Cholesterol,Calculated 133.1 mg/dL (0.0-131.0); VLDL Calculation 15.38 mg/dL (5.00-40.00)
[2022-03-21] MEDS: METOPROLOL TARTRATE 25 MG TAB PO SCH ×2 (12:47→20:44)
[2022-03-21] MEDS ORDERED: VERAPAMIL 2.5 MG/ML 2 ML AMP ONE (13:42)
[2022-03-21] MEDS ORDERED: fentaNYL (PF) 50 MCG/ML 2 ML AMP ONE (13:59)
[2022-03-21] MEDS ORDERED: SODIUM CHLORIDE 0.9% 500 ML 500 ML IV ONE (14:08)
--- NOTE | 2022-03-21 14:14 | P.HPIM ---
History of Present Illness H&P Date: 03/21/22 This is a 71-year-old male who follows with Dr. Manzano the outpatient setting, medical history of hypertension, diabetes, hyperlipidemia, acid reflux, chronic neck pain receives injections and also chronic tobacco use. Denies history of heart disease, denies history of arrhythmia, does not take aspirin daily. Patient presents to the hospital yesterday evening with concern for chest pain which started around 5pm on Wednesday while at rest. He notified family arond 9pm and he came to the hospital. Pain initially reports at midsternal with radiation to the right arm. Associated with some mild dyspnea, however denies dizziness no lightheadedness. No leg swelling, no palpitations, no syncope. Denies recent illness. Currently this morning pain is reported as 10 out of 10 and received sublingual nitroglycerin also has been started on a Nitropaste. He is also placed on oxygen support and receiving IV morphine. Pain has improved to about 5/10 mostly midsternal now he did have radiation to the left arm this morning also. His initial EKG shows normal sinus rhythm with right bundle branch block. He has a troponin elevation of 0.075, 0.091 0.127, he is started on IV heparin and cardiology has been consulted. He also had elevated d-dimer is 0.87 on admission and a slight white count of 14.1. Her blood pressure is 151/79. He is on 2 L of nasal cannula and afebrile. Heart rate is 85 normal sinus rhythm. Chest x-ray that is negative. With ongoing chest pain patient will be started on IV nitroglycerin awaiting further recommendations from cardiology. Metformin will be held. REVIEW OF SYSTEMS: CONSTITUTIONAL: No fever, no malaise, no fatigue. HEENT: No recent visual problems or hearing problems. Denied any sore throat. CARDIOVASCULAR: Reports chest pain, no orthopnea, PND, no palpitations, no syncope. PULMONARY: No shortness of breath, no cough, no hemoptysis. GASTROINTESTINAL: No diarrhea, no nausea, no vomiting, no abdominal pain. NEUROLOGICAL: No headaches, no weakness, no numbness. HEMATOLOGICAL: Denies any bleeding or petechiae. GENITOURINARY: Denies any burning micturition, frequency, or urgency. MUSCULOSKELETAL/RHEUMATOLOGICAL: Denies any joint pain, swelling, or any muscle pain. ENDOCRINE: Denies any polyuria or polydipsia. The rest of the 14-point review of systems is negative. PHYSICAL EXAMINATION: GENERAL: The patient is alert and oriented x3, not in any acute distress. Well developed, well nourished. Currently on 2L nasal cannula HEENT: Pupils are round and equally reacting to light. EOMI. No scleral icterus. No conjunctival pallor. Normocephalic, atraumatic. No pharyngeal erythema. No thyromegaly. CARDIOVASCULAR: S1 and S2 present. No murmurs, rubs, or gallops. PULMONARY: Chest is clear to auscultation, no wheezing or crackles. ABDOMEN: Soft, nontender, nondistended, normoactive bowel sounds. No palpable organomegaly. MUSCULOSKELETAL: No joint swelling or deformity. EXTREMITIES: No cyanosis, clubbing, or pedal edema. NEUROLOGICAL: Gross neurological examination did not reveal any focal deficits. SKIN: No rashes. Assessment and Plan Assessment Chest pain with troponin elevation secondary to acute non ST elevation CO Leukocytosis most likely reactive Hypertension Dyslipidemia Diabetes Mellitus with hyperglycemia Gastroesophageal reflux disease Chronic neck pain with previous orthopedic surgery History tobacco use GI prophylaxis DVT prophylaxis IV heparin Full Code Plan Pending cardiac evaluation Patient will most likely need cardiac catheterization today IV nitroglycerin titrate for chest pain Echocardiogram pending Resume home medications Hold metformin monitor blood glucose sliding scale insulin will be added The impression and plan of care has been dictated by Janie Olivier, Nurse Practitioner as directed. Dr. Amirah MD I have performed a history and physical examination and medical decision making of this patient, discussed the same with the dictator, and agree with the dictators assessment and plan as written, documented as a scribe. Based on total visit time, I have performed more than 50% of this visit. Past Medical History Past Medical History: Diabetes Mellitus, GERD/Reflux, Hearing Disorder / Deafness, Hyperlipidemia, Hypertension, Musculoskeletal Disorder Additional Past Medical History / Comment(s): RT UPPER ARM NT. PAIN IN NECK, LOWER BACK - HX OF PAIN INJ.. History of Any Multi-Drug Resistant Organisms: MRSA Date of last positivie culture/infection: 2006 MDRO Source:: RT WAISTLINE, TESTICLE Past Surgical History: Orthopedic Surgery Additional Past Surgical History / Comment(s): Repaired ruptured disks in back. Right knee surgery. Bilat shoulder surgery. Past Anesthesia/Blood Transfusion Reactions: No Reported Reaction Past Psychological History: No Psychological Hx Reported Past Alcohol Use History: None Reported - Past Family History Father Family Medical History: Cancer Mother Family Medical History: Cancer Medications and Allergies Home Medications Medication Instructions Recorded Confirmed Type Ibuprofen [Motrin] 800 mg PO Q8H PRN 07/20/16 03/21/22 History Montelukast [Singulair] 10 mg PO DAILY 07/20/16 03/21/22 History Omeprazole 20 mg PO HS 07/20/16 03/21/22 History Simvastatin [Zocor] 40 mg PO DAILY 07/20/16 03/21/22 History Vitamin E 100 unit PO DAILY 07/20/16 03/21/22 History metFORMIN HCL [Glucophage] 500 mg PO BID 07/20/16 03/21/22 History Ascorbic Acid [Vitamin C] 1,000 mg PO DAILY 03/21/22 03/21/22 History Cholecalciferol [Vitamin D3 (25 50 mcg PO DAILY 03/21/22 03/21/22 History Mcg = 1000 Iu)] Cyanocobalamin (Vitamin B-12) 1,000 mcg PO DAILY 03/21/22 03/21/22 History [Vitamin B-12] Cyclobenzaprine [Flexeril] 10 mg PO HS PRN 03/21/22 03/21/22 History Gabapentin 600 mg PO BID 03/21/22 03/21/22 History Losartan Potassium 50 mg PO DAILY 03/21/22 03/21/22 History Zinc Gluconate [Zinc] 50 mg PO DAILY 03/21/22 03/21/22 History Allergies Allergy/AdvReac Type Severity Reaction Status Date / Time Iodinated Contrast Media AdvReac BODY FELT Verified 03/21/22 11:42 [Iodinated Contrast Media - FROZEN Oral and] Physical Exam Vitals: Vital Signs Temp Pulse Resp BP Pulse Ox 03/21/22 08:14 85 16 151/79 98 03/21/22 07:50 69 16 135/79 96 03/21/22 07:40 75 20 151/77 99 03/21/22 06:48 70 12 125/73 95 03/21/22 05:02 18 03/21/22 03:49 71 18 128/69 96 03/21/22 00:28 68 20 139/67 98 03/20/22 22:29 80 18 130/80 97 03/20/22 22:10 80 18 104/70 03/20/22 21:58 82 18 163/97 03/20/22 21:41 97.9 F 86 16 171/86 98 Intake and Output 03/20/22 03/21/22 03/21/22 22:59 06:59 14:59 Other: Weight 113.398 kg Results CBC & Chem 7: 03/20/22 22:05 03/20/22 22:05 Labs: Abnormal Lab Results - Last 24 Hours (Table) 03/20/22 03/20/22 03/20/22 Range/Units 22:05 22:05 22:05 WBC 14.1 H (3.8-10.6) k/uL Neutrophils # (Manual) 10.29 H (1.3-7.7) k/uL Monocytes # (Manual) 1.55 H (0-1.0) k/uL APTT (22.0-30.0) sec D-Dimer 0.87 H (<0.60) mg/L FEU BUN 22 H (9-20) mg/dL Glucose 222 H (74-99) mg/dL Troponin I (0.000-0.034) ng/mL 03/20/22 03/20/22 03/21/22 Range/Units 22:05 23:13 00:21 WBC (3.8-10.6) k/uL Neutrophils # (Manual) (1.3-7.7) k/uL Monocytes # (Manual) (0-1.0) k/uL APTT (22.0-30.0) sec D-Dimer (<0.60) mg/L FEU BUN (9-20) mg/dL Glucose (74-99) mg/dL Troponin I 0.075 H* 0.091 H* 0.127 H* (0.000-0.034) ng/mL 03/21/22 Range/Units 05:20 WBC (3.8-10.6) k/uL Neutrophils # (Manual) (1.3-7.7) k/uL Monocytes # (Manual) (0-1.0) k/uL APTT 69.0 H (22.0-30.0) sec D-Dimer (<0.60) mg/L FEU BUN (9-20) mg/dL Glucose (74-99) mg/dL Troponin I (0.000-0.034) ng/mL Assessment and Plan Time with Patient: Greater than 30
[2022-03-21] MEDS ORDERED: methylPREDNISolone SOD SUCCI 125 MG/2 ML VIAL ONE (14:35)
[2022-03-21] MEDS ORDERED: fentaNYL (PF) 50 MCG/ML 2 ML AMP IV ONE (14:38)
[2022-03-21] MEDS ORDERED: LIDOCAINE 2% (PF) 20 MG/ML 5 ML VIAL SQ ONE (14:38)
[2022-03-21] MEDS ORDERED: methylPREDNISolone SOD SUCCI 125 MG/2 ML VIAL IV ONE (14:38)
[2022-03-21] MEDS ORDERED: HEPARIN SODIUM 1,000 UN/ML (10ML VL) ONE (14:49)
[2022-03-21] MEDS ORDERED: HEPARIN SODIUM 1,000 UN/ML (10ML VL) IV ONE ×3 (14:50→15:19)
[2022-03-21] MEDS ORDERED: PRASUGREL 10 MG TAB ONE (14:51)
[2022-03-21] MEDS ORDERED: PRASUGREL 10 MG TAB PO ONE (14:51)
[2022-03-21] MEDS ORDERED: NITROGLYCERIN 1000MCG/10ML SYRINGE INTRACORON ONE ×2 (14:57→15:25)
[2022-03-21] MEDS ORDERED: IOPAMIDOL-370 125ML BTL INJ ONE (14:59)
[2022-03-21] MEDS ORDERED: IOPAMIDOL-370 100ML BTL INJ ONE (15:30)
[2022-03-21] MEDS ORDERED: ATROPINE SULFATE 0.1 MG/ML 10ML SYRINGE IV PRN (15:47)
[2022-03-21] MEDS ORDERED: RX INFO: IV CONTRAST WAS GIVEN 1 EACH MISC MISCELLANE PRN (15:47)
[2022-03-21] MEDS ORDERED: ZOLPIDEM 5 MG TAB PO PRN (15:47)
[2022-03-21] MEDS ORDERED: MAG HYDROX/AL HYDROX/SIMETH 30 ML CUP PO PRN (15:47)
--- NOTE | 2022-03-21 16:12 | P.CARDCATH ---
Date of Procedure: 03/21/22 Description of Procedure: Cardiac Catheterization: The patient is a 71-year-old male with a known history of hypertension, hyperlipidemia and diabetes mellitus as well as chronic tobacco use who presented with chest discomfort and evidence of non-STEMI by enzymes. Recommendations were made regarding cardiac catheterization, the risks and the complications were discussed with the patient who is in full understanding and agreement. Procedure Description: Patient was brought to crown and bridge dental lab technician in fasting semi-sedated state after receiving Fentanyl and Benadryl achieiving moderate conscious sedated state. Using Xylocaine Anesthesia and Seldinger technique, a 6-Wolof sheath was introduced in the right radial artery . Subsequently, selective coronary angiography was performed using a 5-Wolof 3.5 bend Damián catheter. Multiple views of the coronary artery including hemiaxial views were obtained. The 5-Wolof pigatail catheter was used to cross the aortic valve and LVEDP was calculated. A 6-Wolof EBU 3.75 guiding catheter was introduced the system, after cannulating the left main 0.014 BMW wire was introduced the first diagonal branch, following that a 2.5 x 12 mm treck was advanced and multiple inflations were done. After removing the balloon a 2.5 x 18 mm Xience kash point stent was deployed at 16 oliver after removing the balloon a 2.25 x 12 mm Xience kash point was deployed distal to the first one and dilated at 12 oliver. An inflation in the overlap segment at 16 oliver was done. After removing the balloon and the wire images were obtained and revealed stable successful stenting. Following that, catheter and sheath were removed. Hemostasis was obtained with deployment of TR band . There was no immediate complication. Patient was returned to room in stable condition. Of note, the patient received a total of 11,000 units of intravenous heparin as well as intra-arterial verapamil. The patient received a loading dose of Effient, his ACT was monitored. His chest discomfort resolved at the end of the procedure. Findings: Fluoroscopy: Calcifications of the coronary arteries in the LAD was noted Left main: This is a large size vessel, bifurcating into LAD and left circumflex, left main has no high-grade stenosis LAD: This is a large size vessel, reaching to the apex without apparent apex segment. Giving rise to a proximal diagonal branch that is totally occluded. The distal LAD has diffuse intimal disease with area of stenosis up to 70-80%. The proximal and mid LAD have intimal disease of 30-40%. Left circumflex: This is a nondominant vessel giving rise to 3 obtuse margin branch the first one is very proximal. The left circumflex has mild intimal disease of 2030% without high-grade stenosis RCA: This is a large dominant vessel, bifurcating into PDA and PLV, the RCA has diffuse intimal disease of mild degree Left Ventriculogram: Not performed Hemodynamics: There was no gradient across the aortic valve , LVEDP was 20-24 mm mmHg Conclusion: 1. Calcified LAD 2. Acutely occluded first diagonal branch 3. Significantly diseased distal LAD 4. Mild to moderate disease in the RCA and left circumflex 5. Successful stenting of the first diagonal branch with reduction of stenosis from 100% to 0% Recommendations: The patient will continue on dual antiplatelet treatment with aspirin and Effient for 1 year in addition to aggressive coronary risks modifications including smoking cessation. The findings and the recommendations were discussed with the patient and the family and they were in full understanding and agreement. Duration of sedation is 56 minutes.
[2022-03-21 16:45] LABS: Glucose,Whole Blood 247 mg/dL (70-110)
[2022-03-21 19:57] LABS: Glucose,Whole Blood 274 mg/dL (70-110)
[2022-03-21] MEDS: ALPRAZolam 0.5 MG TAB PO PRN (21:39)
[2022-03-22] MEDS: INSULIN ASPART (NovoLOG) 100 UNIT/ML VIAL SQ SCH ×4 (06:19→23:05)
[2022-03-22 06:20] LABS: Glucose,Whole Blood 134 mg/dL (70-110)
[2022-03-22] MEDS ORDERED: HEPARIN SODIUM,PORCINE 10,000 UNIT in SODIUM CHLORIDE 0.9% 1,000 ML IRRIGATION PRN (07:00)
[2022-03-22] MEDS ORDERED: HEPARIN SODIUM,PORCINE 2,500 UNIT in SODIUM CHLORIDE 0.9% 250 ML IRRIGATION PRN (07:00)
[2022-03-22] MEDS: ATORVASTATIN 40 MG TAB PO SCH (08:18)
[2022-03-22] MEDS: PRASUGREL 10 MG TAB PO SCH (08:18)
[2022-03-22] MEDS: lisinopriL 10 MG TAB PO SCH (08:18)
[2022-03-22] MEDS: METOPROLOL TARTRATE 25 MG TAB PO SCH ×2 (08:18→20:00)
[2022-03-22] MEDS: ASPIRIN 81 MG PO SCH (08:19)
[2022-03-22 09:36] LABS: African American GFR (CKD) >90 (>60 ml/min/1.73 sqM); Anion Gap 5 mmol/L; Blood Urea Nitrogen 19 mg/dL (9-20); Calcium 8.9 mg/dL (8.4-10.2); Carbon Dioxide 28 mmol/L (22-30); Chloride 104 mmol/L (98-107); Glucose 158 mg/dL (74-99); Non-African American GFR(CKD) 89 (>60 ml/min/1.73 sqM); Potassium 4.3 mmol/L (3.5-5.1); Sodium 137 mmol/L (137-145)
[2022-03-22 11:52] LABS: Glucose,Whole Blood 137 mg/dL (70-110)
--- NOTE | 2022-03-22 13:55 | P.PN ---
Subjective Progress Note Date: 03/22/22 This is a 71-year-old male who follows with Dr. Manzano the outpatient setting, medical history of hypertension, diabetes, hyperlipidemia, acid reflux, chronic neck pain receives injections and also chronic tobacco use. Denies history of heart disease, denies history of arrhythmia, does not take aspirin daily. Patient presents to the hospital yesterday evening with concern for chest pain which started around 5pm on Wednesday while at rest. He notified family arond 9pm and he came to the hospital. Pain initially reports at midsternal with radiation to the right arm. Associated with some mild dyspnea, however denies dizziness no lightheadedness. No leg swelling, no palpitations, no syncope. Denies recent illness. Currently this morning pain is reported as 10 out of 10 and received sublingual nitroglycerin also has been started on a Nitropaste. He is also placed on oxygen support and receiving IV morphine. Pain has improved to about 5/10 mostly midsternal now he did have radiation to the left arm this morning also. His initial EKG shows normal sinus rhythm with right bundle branch block. He has a troponin elevation of 0.075, 0.091 0.127, he is started on IV heparin and cardiology has been consulted. He also had elevated d-dimer is 0.87 on admission and a slight white count of 14.1. Her blood pressure is 151/79. He is on 2 L of nasal cannula and afebrile. Heart rate is 85 normal sinus rhythm. Chest x-ray that is negative. With ongoing chest pain patient will be started on IV nitroglycerin awaiting further recommendations from cardiology. Metformin will be held. 03/22/2022 Patient is monitored on medical floor this morning, family at bedside. He is post cardiac catheterization and underwent a stent to the first diagonal branch. He has been started on dual antiplatelet therapy with aspirin 80 mg daily as well as Effient 10 mg daily. He is recommended to take Lipitor 40 mg daily patient states that he has had side effects with Lipitor in the past is currently maintained on simvastatin states he will discuss with the manager enterprise content management. He is anxious for DC home as he is leaving for [place] tentatively next Wednesday. No acute events overnight, currently he is chest pain-free. He denies any shortness of breath, palpitations, dizziness or lightheadedness. His A1c was found to be 6.9 and this confirms a diagnosis of diabetes mellitus and this was communicated to the patient recommending him to increase his metformin dosing. Discussed possible GI side effects of this. Di scussed current cardiac recommendations the patient will be monitored overnight and will possibly discharge home tomorrow. Review of Systems Constitutional: Denied any fatigue denied any fever. Cardio vascular: denied any chest pain, palpitations Gastrointestinal: denied any nausea, vomiting, diarrhea Pulmonary: Denied any shortness of breath cough Neurologic denied any new focal deficits All inpatient medications were reviewed and appropriate changes in these medications as dictated in the interval history and assessment and plan. PHYSICAL EXAMINATION: GENERAL: The patient is alert and oriented x3, not in any acute distress. Well developed, well nourished. Currently on 2L nasal cannula HEENT: Pupils are round and equally reacting to light. EOMI. No scleral icterus. No conjunctival pallor. Normocephalic, atraumatic. No pharyngeal erythema. No thyromegaly. CARDIOVASCULAR: S1 and S2 present. No murmurs, rubs, or gallops. PULMONARY: Chest is clear to auscultation, no wheezing or crackles. ABDOMEN: Soft, nontender, nondistended, normoactive bowel sounds. No palpable organomegaly. MUSCULOSKELETAL: No joint swelling or deformity. EXTREMITIES: No cyanosis, clubbing, or pedal edema. NEUROLOGICAL: Gross neurological examination did not reveal any focal deficits. SKIN: No rashes. Assessment and Plan Assessment Chest pain Non ST elevation [place] status post PCI with stenting to the first diag on dual antiplatelet therapy Leukocytosis most likely reactive Hypertension, currently normotensive Dyslipidemia Diabetes Mellitus with hyperglycemia A1C 6.9, blood glucose improved Gastroesophageal reflux disease Chronic neck pain with previous orthopedic surgery History tobacco use GI prophylaxis DVT prophylaxis IV heparin Full Code Plan Currently chest pain free status post cardiac intervention Dual antiplatetlet therapy with aspirin and effient Echocardiogram currently pending at this time Patient will be monitored overnight possible discharge home tomorrow. Hold metformin monitor blood glucose sliding scale insulin will be added, metformin can be resumed tomorrow. The impression and plan of care has been dictated by Janie Olivier, Nurse Practitioner as directed. Dr. Amirah MD I have performed a history and physical examination and medical decision making of this patient, discussed the same with the dictator, and agree with the dictators assessment and plan as written, documented as a scribe. Based on total visit time, I have performed more than 50% of thi Objective - Vital Signs Vital signs: Vital Signs Temp 98.0 F 03/22/22 11:54 Pulse 58 L 03/22/22 11:54 Resp 14 03/22/22 11:54 BP 114/68 03/22/22 11:54 Pulse Ox 98 03/22/22 11:54 FiO2 Intake & Output 03/21/22 03/22/22 03/22/22 18:59 06:59 18:59 Intake Total 385.15 118 180 Output Total 500 Balance -114.85 118 180 Weight 113.398 kg Intake: IV 200 Intake, IV Titration 5.15 Amount Nitroglycerin-D5w Pmx 50 5.15 mg In Dextrose/Water 1 250ml.bag @ 5 MCG/MIN 1.5 mls/hr IV .Q24H BATOOL Rx#: [id number] Oral 180 118 180 Output: Urine 500 Other: # Voids 2 - Labs CBC & Chem 7: 03/20/22 22:05 03/22/22 08:35 Labs: Abnormal Lab Results - Last 24 Hours (Table) 03/21/22 03/21/22 03/21/22 Range/Units 00:31 16:44 19:56 Glucose (74-99) mg/dL POC Glucose (mg/dL) 247 H 274 H (70-110) mg/dL Hemoglobin A1c 6.9 H (0.0-6.0) % 03/22/22 03/22/22 03/22/22 Range/Units 06:18 08:35 11:50 Glucose 158 H (74-99) mg/dL POC Glucose (mg/dL) 134 H 137 H (70-110) mg/dL Hemoglobin A1c (0.0-6.0) % Assessment and Plan Time with Patient: Less than 30
--- NOTE | 2022-03-22 14:11 | P.PN ---
Subjective Progress Note Date: 03/22/22 The patient is a 71-year-old male with a known history of hypertension, hyperlipidemia, diabetes mellitus and chronic tobacco use who presented with chest discomfort, across the chest associated with some radiation to the arm. His discomfort started at rest. He denies any prior similar symptoms. 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 He denies any prior cardiac history. He has no similar symptoms in the past. He continues to have mild discomfort at this time but better. He denies any dizziness, palpitations or syncope. He denies any history of malignant arrhythmia. In the emergency room he had mild troponin elevation. His EKG showed sinus mechanism with right bundle branch block and left axis deviation. The right bundle branch block was noted in 2017. 03/22/2022 He underwent cardiac catheterization done yesterday which showed calcified LAD with acutely occluded first diagonal branch and significant disease distal LAD with mild to moderate disease in the RCA and left circumflex. He subsequently underwent successful stenting of the first diagonal branch with reduction of stenosis from 100% to 0%. He is overall feeling quite a bit better today. No further complaints of chest discomfort. Echocardiogram is pending. Objective - Vital Signs Vital signs: Vital Signs Temp 98.0 F 03/22/22 11:54 Pulse 58 L 03/22/22 13:50 Resp 14 03/22/22 13:50 BP 114/68 03/22/22 11:54 Pulse Ox 98 03/22/22 11:54 FiO2 Intake & Output 03/21/22 03/22/22 03/22/22 18:59 06:59 18:59 Intake Total 385.15 118 780 Output Total 500 Balance -114.85 118 780 Weight 113.398 kg Intake: IV 200 Intake, IV Titration 5.15 Amount Nitroglycerin-D5w Pmx 50 5.15 mg In Dextrose/Water 1 250ml.bag @ 5 MCG/MIN 1.5 mls/hr IV .Q24H BATOOL Rx#: [id number] Oral 180 118 780 Output: Urine 500 Other: # Voids 2 - Exam Head: Normocephalic. Eyes: Sclerae nonicteric. Neck: Good carotid upstroke, no bruit, no jugular venous distention. Lungs: Clear to auscultation. Heart: Regular rate and rhythm, S1-S2, no S3, no rub. No murmur. Abdomen: Soft nontender, positive bowel sounds no organomegaly. Extremities: No edema, intact distal pulses. Right radial puncture site is clean, dry, intact, soft without ecchymosis or hematoma - Labs CBC & Chem 7: 03/20/22 22:05 03/22/22 08:35 Labs: Abnormal Lab Results - Last 24 Hours (Table) 03/21/22 03/21/22 03/21/22 Range/Units 00:31 16:44 19:56 Glucose (74-99) mg/dL POC Glucose (mg/dL) 247 H 274 H (70-110) mg/dL Hemoglobin A1c 6.9 H (0.0-6.0) % 03/22/22 03/22/22 03/22/22 Range/Units 06:18 08:35 11:50 Glucose 158 H (74-99) mg/dL POC Glucose (mg/dL) 134 H 137 H (70-110) mg/dL Hemoglobin A1c (0.0-6.0) % Assessment and Plan Assessment: #1 non-ST elevation [place] status post stenting of the first diagonal branch 2. Hypertension 3. Hyperlipidemia 4. Diabetes mellitus 5. Chronic tobacco use Plan: From cardiology perspective await echocardiogram results. Medications were reviewed and we will continue the same. Increase ambulation. Anticipate discharge in the next 24 hours. MUSEUM ASSISTANT note has been reviewed, I agree with a documented findings and plan of care. Patient was seen and examined.
[2022-03-22 16:55] LABS: Glucose,Whole Blood 162 mg/dL (70-110)
[2022-03-22] MEDS: ALPRAZolam 0.5 MG TAB PO PRN (20:00)
[2022-03-22 20:21] LABS: Glucose,Whole Blood 209 mg/dL (70-110)
[2022-03-23 06:08] LABS: Glucose,Whole Blood 129 mg/dL (70-110)
[2022-03-23] MEDS: INSULIN ASPART (NovoLOG) 100 UNIT/ML VIAL SQ SCH ×2 (06:09→12:19)
[2022-03-23] MEDS: METOPROLOL TARTRATE 25 MG TAB PO SCH ×2 (08:30→08:58)
[2022-03-23] MEDS: lisinopriL 10 MG TAB PO SCH ×2 (08:30→08:58)
[2022-03-23] MEDS: ATORVASTATIN 40 MG TAB PO SCH (08:58)
[2022-03-23] MEDS: PRASUGREL 10 MG TAB PO SCH (08:58)
[2022-03-23] MEDS: ASPIRIN 81 MG PO SCH (08:58)
[2022-03-23 11:18] LABS: Mean Platelet Volume 9.2; Platelet Count 223 k/uL (150-450)
--- NOTE | 2022-03-23 12:04 | CA ---
Transthoracic Echo Report Name: Kash Lowry Age: 71 Gender: M : 1950 Exam Date: 03/21/2022 13:08 Exam Location: [facility] Ht (in): 60 Wt (lb): 250 Ordering Physician: Jordan Church MD ([id number]) Attending/Referring Phys: Teacher Dancing Jayne Suazo RDCS Procedure CPT: Indications: IA Cardiac Hx: Technical Quality: Technically difficult study Contrast 1: Lumason Total Dose (mL): 4 Contrast 2: Total Dose (mL): MEASUREMENTS (Male / Female) Normal Values 2D ECHO LV Diastolic Diameter PLAX 5.2 cm 4.2 - 5.9 / 3.9 - 5.3 cm LV Systolic Diameter PLAX 4.2 cm IVS Diastolic Thickness 1.5 cm 0.6 - 1.0 / 0.6 - 0.9 cm LVPW Diastolic Thickness 1.2 cm 0.6 - 1.0 / 0.6 - 0.9 cm LV Relative Wall Thickness 0.5 RV Internal Dim ED PLAX 3.2 cm LA Systolic Diameter LX 4.8 cm 3.0 - 4.0 / 2.7 - 3.8 cm LA Volume 113.9 cm??? 18 - 58 / 22 - 52 cm??? M-MODE Aortic Root Diameter MM 3.3 cm LA Systolic Diameter MM 5.4 cm LA Ao Ratio MM 1.6 MV E Point Septal Separation 0.3 cm AV Cusp Separation MM 1.3 cm DOPPLER AV Peak Velocity 177.0 cm/s AV Peak Gradient 12.5 mmHg AV Mean Velocity 129.0 cm/s AV Mean Gradient 7.5 mmHg AV Velocity Time Integral 38.1 cm MV Peak Velocity 163.6 cm/s MV Peak Gradient 10.7 mmHg MV Mean Velocity 88.0 cm/s MV Mean Gradient 3.7 mmHg MV Velocity Time Integral 41.0 cm MV Area PHT 3.2 cm??? Mitral E Point Velocity 78.2 cm/s Mitral A Point Velocity 119.0 cm/s Mitral E to A Ratio 0.7 MV Deceleration Time 235.1 ms MV E' Velocity 4.0 cm/s Mitral E to MV E' Ratio 19.7 TR Peak Velocity 295.8 cm/s TR Peak Gradient 35.0 mmHg Right Ventricular Systolic Press 37.2 mmHg FINDINGS Left Ventricle Moderately increased septal wall thickness. Left ventricular cavity size normal. Left ventricular ejection fraction is estimated at 40 %. Anterseptel, inferior apical, apical hypokinesis. Right Ventricle Normal right ventricular size and function. Mild pulmonary hypertension. Right ventricular systolic pressure estimated at 37 mm hg. Right Atrium Normal right atrial size. Left Atrium Moderately increased left atrial diameter. Severely increased left atrial volume. Mildly increased left atrial area. Mitral Valve Moderate posterior mitral annular calcification. Mild mitral regurgitation. Aortic Valve Trileaflet aortic valve. Aortic valve sclerosis. Tricuspid Valve Structurally normal tricuspid valve. Trace tricuspid regurgitation. Pulmonic Valve Structurally normal pulmonic valve. Pericardium Echo free space anterior to the right ventricle likely represents a fat pad. Aorta Normal size aortic root and proximal ascending aorta. CONCLUSIONS Impaired LV function with an EF around 40% Previewed by: Dr. Asim Quinonez MD (Electronically Signed) Final Date: 23 March 2022 12:04
[2022-03-23 12:06] LABS: Glucose,Whole Blood 112 mg/dL (70-110)
[2022-03-23 12:52] VITALS: BP 109/71; RESP 18; TEMP 98
[2022-03-23] MEDS ORDERED: METOPROLOL TARTRATE 12.5 MG TAB PO SCH (13:30)
[2022-03-23] MEDS ORDERED: lisinopriL 5 MG TAB PO SCH (13:30)
--- NOTE | 2022-03-23 13:30 | P.PN ---
Subjective HISTORY OF PRESENTING ILLNESS The patient is a 71-year-old male with a known history of hypertension, hyperlipidemia, diabetes mellitus and chronic tobacco use who presented with chest discomfort, across the chest associated with some radiation to the arm. His discomfort started at rest. He denies any prior similar symptoms. 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 He denies any prior cardiac history. He has no similar symptoms in the past. He continues to have mild discomfort at this time but better. He denies any dizziness, palpitations or syncope. He denies any history of malignant arrhythmia. In the emergency room he had mild troponin elevation. His EKG showed sinus mechanism with right bundle branch block and left axis deviation. The right bundle branch block was noted in 2017. 03/22/2022 He underwent cardiac catheterization done yesterday which showed calcified LAD with acutely occluded first diagonal branch and significant disease distal LAD with mild to moderate disease in the RCA and left circumflex. He subsequently underwent successful stenting of the first diagonal branch with reduction of stenosis from 100% to 0%. He is overall feeling quite a bit better today. No further complaints of chest discomfort. Echocardiogram is pending. 03/23 Patient seen and examined. Patient had echo performed 03/21 which showed EF 40%. He denies any chest pain or pressure. Anxious to go home. Denies any lightheadedness. Blood pressures have been somewhat borderline as well as some asymptomatic sinus bradycardia. We therefore will decrease the lisinopril from 10-5 and additionally decrease the metoprolol from 25-12.5 twice a day. PHYSICAL EXAMINATION Vital signs reviewed. CONSTITUTIONAL: No apparent distress. HEENT: Head is normocephalic. Pupils are equal, round. Sclerae anicteric. Mucous membranes of the mouth are moist. No JVD. No carotid bruit. CHEST EXAMINATION: Lungs are clear to auscultation. No chest wall tenderness is noted on palpation or with deep breathing. HEART EXAMINATION: Regular rate and rhythm. S1, S2 heard. No murmurs, gallops or rub. ABDOMEN: Soft, nontender. Positive bowel sounds. EXTREMITIES: 2+ peripheral pulses, no lower extremity edema and no calf tenderness. NEUROLOGIC EXAMINATION: Patient is awake, alert and oriented x3. Assessment: #1 non-ST elevation [place] status post stenting of the first diagonal branch 2. Hypertension 3. Hyperlipidemia 4. Diabetes mellitus 5. Chronic tobacco use 6. Chronic systolic heart failure left ventricular ejection fraction 40% Plan: Borderline blood pressures with systolics in the 90s to 100 as well as some borderline bradycardia heart rates in the 50s however asymptomatic. He does admit to some lightheadedness if he stands up too quickly. We therefore will decrease the lisinopril from 10-5 mg daily and the metoprolol from 25-12.5 mg twice a day. Echocardiogram reviewed with EF 40%. Continue with heart failure regimen and outpatient follow-up in the next 1 week. Patient stable for discharge home from a cardiology standpoint. Objective - Vital Signs Vital signs: Vital Signs Temp 98.0 F 03/23/22 12:00 Pulse 64 03/23/22 12:00 Resp 18 03/23/22 12:00 BP 109/71 03/23/22 12:00 Pulse Ox 94 L 03/23/22 12:00 FiO2 Intake & Output 03/22/22 03/23/22 03/23/22 18:59 06:59 18:59 Intake Total 1140 240 Balance 1140 240 Intake: Oral 1140 240 Other: Voiding Method Toilet # Voids 1 2 - Labs CBC & Chem 7: 03/22/22 08:35 03/22/22 08:35 Labs: Abnormal Lab Results - Last 24 Hours (Table) 03/22/22 03/22/22 03/23/22 Range/Units 16:54 20:20 06:07 POC Glucose (mg/dL) 162 H 209 H 129 H (70-110) mg/dL 03/23/22 Range/Units 12:02 POC Glucose (mg/dL) 112 H (70-110) mg/dL
--- NOTE | 2022-03-23 14:24 | P.DS ---
Providers Date of admission: 03/20/22 22:38 Expected date of discharge: 03/23/22 Attending physician: Andrea Manzano Consults: 03/20/22 22:38 Consult Physician Urgent Consulting Provider: Jordan Church Consult Reason/Comments: nstemi Do you want consulting provider notified?: Yes 03/21/22 15:47 Consult Physician Routine Consulting Provider: [facility] Consult Reason/Comments: Post Interventional Patient Do you want consulting provider notified?: Already Contacted Primary care physician: Andrea Manzano Hospital Course: Final Diagnoses: Non ST elevation [place] status post PCI with stenting to the first diag on dual antiplatelet therapy Leukocytosis most likely reactive Hypertension, currently normotensive Dyslipidemia Diabetes Mellitus with hyperglycemia A1C 6.9, blood glucose improved Gastroesophageal reflux disease Chronic neck pain with previous orthopedic surgery Nicotine dependence, smoking cessation reinforced. Hospital course: This is a 71-year-old gentleman admitted with chest pain,NSTEMI, underwent cardiac catheterization , status post PCI with stenting to the first diagonal. Tolerated procedure well. Mild bradycardia, soft blood pressures-asymptomatic, further adjustment in med regimen as per cardiology. Denies chest pain, palpitations or shortness of breath. Denies lightheadedness, dizziness or focal deficits. Significant clinical improvement. Patient will be discharged home today in a stable condition with guarded prognosis pending repeat echo, final DC recommendations and clearance as per cardiology. The impression and plan of care has been dictated as directed. : I performed a history and examination of this patient, discussed the same with the dictator. I agree with the dictator's note ,documented as a scribe. Any additional findings or plans will be noted. Patient Condition at Discharge: Stable Plan - Discharge Summary Discharge Rx Participant: No New Discharge Prescriptions: New Aspirin 81 mg PO DAILY #30 tab Prasugrel [Effient] 10 mg PO DAILY #30 tab Atorvastatin [Lipitor] 40 mg PO HS #30 tab Nitroglycerin Sl Tabs [Nitrostat] 0.4 mg SUBLINGUAL Q5M PRN #20 tab PRN Reason: Chest Pain lisinopriL [Zestril] 5 mg PO DAILY #30 tab metFORMIN HCL [Glucophage] 850 mg PO BID #60 tab Metoprolol Tartrate [Lopressor] 12.5 mg PO BID #60 tab Continue Omeprazole 20 mg PO HS Montelukast [Singulair] 10 mg PO DAILY Zinc Gluconate [Zinc] 50 mg PO DAILY Cyanocobalamin (Vitamin B-12) [Vitamin B-12] 1,000 mcg PO DAILY Cholecalciferol [Vitamin D3 (25 Mcg = 1000 Iu)] 50 mcg PO DAILY Ascorbic Acid [Vitamin C] 1,000 mg PO DAILY Gabapentin 600 mg PO BID Cyclobenzaprine [Flexeril] 10 mg PO HS PRN PRN Reason: Muscle Pain Discontinued metFORMIN HCL [Glucophage] 500 mg PO BID Simvastatin [Zocor] 40 mg PO DAILY Ibuprofen [Motrin] 800 mg PO Q8H PRN PRN Reason: Pain Vitamin E 100 unit PO DAILY Losartan Potassium 50 mg PO DAILY Discharge Medication List Montelukast [Singulair] 10 mg PO DAILY 07/20/16 [History] Omeprazole 20 mg PO HS 07/20/16 [History] Ascorbic Acid [Vitamin C] 1,000 mg PO DAILY 03/21/22 [History] Cholecalciferol [Vitamin D3 (25 Mcg = 1000 Iu)] 50 mcg PO DAILY 03/21/22 [History] Cyanocobalamin (Vitamin B-12) [Vitamin B-12] 1,000 mcg PO DAILY 03/21/22 [History] Cyclobenzaprine [Flexeril] 10 mg PO HS PRN 03/21/22 [History] Gabapentin 600 mg PO BID 03/21/22 [History] Zinc Gluconate [Zinc] 50 mg PO DAILY 03/21/22 [History] Aspirin 81 mg PO DAILY #30 tab 03/22/22 [Rx] Atorvastatin [Lipitor] 40 mg PO HS #30 tab 03/22/22 [Rx] Nitroglycerin Sl Tabs [Nitrostat] 0.4 mg SUBLINGUAL Q5M PRN #20 tab 03/22/22 [Rx] Prasugrel [Effient] 10 mg PO DAILY #30 tab 03/22/22 [Rx] metFORMIN HCL [Glucophage] 850 mg PO BID #60 tab 03/22/22 [Rx] Metoprolol Tartrate [Lopressor] 12.5 mg PO BID #60 tab 03/23/22 [Rx] lisinopriL [Zestril] 5 mg PO DAILY #30 tab 03/23/22 [Rx] Follow up Appointment(s)/Referral(s): Andrea Manzano DO [Primary Care Provider] - 3 Days Activity/Diet/Wound Care/Special Instructions: Confirm cardiology follow-up appointment-1 week
[2022-03-23 14:51] VITALS: BMI 35.9
[2022-03-23 17:17] VITALS: PULSE 63
== END 2022-03-23 17:34 | disposition home health service (06) | DRG 247 ==
LOC: EC 21:38 → 3SCARD 22:38
PROVIDERS: ADMIT Family Medicine; ATTEND Family Medicine
PROC: 027035Z Dilation of Coronary Artery, One Artery with Two Drug-eluting Intraluminal Devices, Percutaneous Approach (ICD-10-PCS; principal; 2022-03-21 13:46)
PROC: 4A023N7 Measurement of Cardiac Sampling and Pressure, Left Heart, Percutaneous Approach (ICD-10-PCS; principal; 2022-03-21 13:46)
PROC: B2111ZZ Fluoroscopy of Multiple Coronary Arteries using Low Osmolar Contrast (ICD-10-PCS; principal; 2022-03-21 13:46)
DX: I21.4 Non-ST elevation (NSTEMI) myocardial infarction (principal); I50.22 Chronic systolic (congestive) heart failure; K21.9 Gastro-esophageal reflux disease without esophagitis; I45.10 Unspecified right bundle-branch block; I25.10 Atherosclerotic heart disease of native coronary artery without angina pectoris; I11.0 Hypertensive heart disease with heart failure; H91.90 Unspecified hearing loss, unspecified ear; E11.65 Type 2 diabetes mellitus with hyperglycemia; G89.29 Other chronic pain; M54.2 Cervicalgia; F17.200 Nicotine dependence, unspecified, uncomplicated; E78.5 Hyperlipidemia, unspecified; D72.829 Elevated white blood cell count, unspecified; Z79.899 Other long term (current) drug therapy; Z79.84 Long term (current) use of oral hypoglycemic drugs; Z71.6 Tobacco abuse counseling; Z71.3 Dietary counseling and surveillance; Z91.041 Radiographic dye allergy status; Z86.14 Personal history of Methicillin resistant Staphylococcus aureus infection
CPT/HCPCS: 36415; 71045; 80048; 80053; 80061; 83036; 83690; 83735; 83880; 84484; 85025; 85049; 85379; 85610; 85730; 93005; 93306; 93458; 94760; 96361; 96365; 96366; 96368; 96375; 96376; 99285

== ENCOUNTER → 2022-10-03 | Outpatient (CLI) | payer MEDICARE ==
[2022-10-03 13:39] LABS: BUN/Creat Ratio 20.88 Ratio (12.00-20.00); Blood Urea Nitrogen 16.7 mg/dL (9.0-27.0); Chol/HDL Ratio 2.38 Ratio; Glucose 112 mg/dL (70-110); LDL Cholesterol,Calculated 52.9 mg/dL (0.0-131.0); VLDL Calculation 17.92 mg/dL (5.00-40.00)
[2022-10-03 13:40] LABS: ALT 30 U/L (10-49); AST 21 U/L (14-35); Albumin 4.4 d/dL (3.8-4.9); Albumin/Globulin Ratio 1.57 Ratio (1.60-3.17); Alkaline Phosphatase 54 U/L (41-126); Calcium 9.5 mg/dL (8.7-10.3); Carbon Dioxide 24.5 mmol/L (21.6-31.8); Chloride 103 mmol/L (96-109); Globulin 2.8 d/dL (1.6-3.3); Potassium 4.1 mmol/L (3.5-5.5); Sodium 141 mmol/L (135-145); Total Bilirubin 0.3 mg/dL (0.3-1.2); Total Protein 7.2 d/dL (6.2-8.2)
== END | disposition home or self-care (01) ==
LOC: LABWHC1 08:02
PROVIDERS: ATTEND Internal Medicine Interventional Cardiology
DX: E78.2 Mixed hyperlipidemia (principal)
CPT/HCPCS: 36415; 80053; 80061

== ENCOUNTER → 2022-10-10 | Outpatient (CLI) | payer MEDICARE ==
[2022-10-10 23:37] LABS: ALT 32 U/L (10-49); AST 28 U/L (14-35); Chol/HDL Ratio 2.63 Ratio; LDL Cholesterol,Calculated 69.3 mg/dL (0.0-131.0); VLDL Calculation 19.32 mg/dL (5.00-40.00)
== END | disposition home or self-care (01) ==
LOC: LABWHC1 09:13
PROVIDERS: ATTEND Internal Medicine Interventional Cardiology
DX: E78.2 Mixed hyperlipidemia (principal)
CPT/HCPCS: 36415; 80061; 84450; 84460

== ENCOUNTER → 2023-07-22 | Outpatient (CLI) | payer MEDICARE ==
[2023-07-22 11:21] LABS: ALT 31 U/L (10-49); AST 28 U/L (14-35); Chol/HDL Ratio 2.52 Ratio; LDL Cholesterol,Calculated 61.5 mg/dL (0.0-131.0); VLDL Calculation 15.18 mg/dL (5.00-40.00)
== END | disposition home or self-care (01) ==
LOC: LABWHC1 07:12
PROVIDERS: ATTEND Internal Medicine Interventional Cardiology
DX: E78.2 Mixed hyperlipidemia (principal)
CPT/HCPCS: 36415; 80061; 84450; 84460

== ENCOUNTER → 2024-02-01 | Outpatient (CLI) | payer MEDICARE ==
[2024-02-01 10:41] LABS: ALT 41 U/L (10-49); AST 30 U/L (14-35); Albumin 4.3 g/dL (3.8-4.9); Albumin/Globulin Ratio 1.34 Ratio (1.60-3.17); Alkaline Phosphatase 80 U/L (41-126); BUN/Creat Ratio 14.56 Ratio (12.00-20.00); Blood Urea Nitrogen 13.1 mg/dL (9.0-27.0); Calcium 9.3 mg/dL (8.7-10.3); Carbon Dioxide 26.7 mmol/L (21.6-31.8); Chloride 100 mmol/L (96-109); Chol/HDL Ratio 2.63 Ratio; Globulin 3.2 g/dL (1.6-3.3); Glucose 131 mg/dL (70-110); LDL Cholesterol,Calculated 61.8 mg/dL (0.0-131.0); Potassium 4.6 mmol/L (3.5-5.5); Sodium 138 mmol/L (135-145); Total Bilirubin 0.4 mg/dL (0.3-1.2); Total Protein 7.5 g/dL (6.2-8.2); VLDL Calculation 16.28 mg/dL (5.00-40.00)
== END | disposition home or self-care (01) ==
LOC: LABWHC1 06:48
PROVIDERS: ATTEND Internal Medicine Interventional Cardiology
CPT/HCPCS: 36415; 80053; 80061

== ENCOUNTER 2024-03-17 17:25 | Emergency (ER) | payer MEDICARE ==
[2024-03-17 17:34] VITALS: TEMP 97.9
[2024-03-17] MEDS: FAMOTIDINE 20 MG/2 ML VIAL IV STA (18:15)
[2024-03-17] MEDS: diphenhydrAMINE 50 MG/ML 1 ML VIAL IVP STA (18:16)
[2024-03-17 18:18] LABS: HCT 40.5 % (39.0-53.0); MCHC 34.6 g/dL (31.0-37.0); MCV 89.4 fL (80.0-100.0); Mean Platelet Volume 6.2; Platelet Count 318 k/uL (150-450); RBC 4.52 m/uL (4.30-5.90); RDW 12.3 % (11.5-15.5); WBC 17.9 k/uL (3.8-10.6)
[2024-03-17] MEDS: ONDANSETRON 4 MG/2 ML VIAL IVP STA (18:18)
[2024-03-17] MEDS: SODIUM CHLORIDE 0.9% 500 ML 500 ML IV STA (18:19)
[2024-03-17] MEDS: methylPREDNISolone SOD SUCCI 125 MG/2 ML VIAL IVP ONE (18:20)
[2024-03-17 18:29] LABS: ALT 35 U/L (4-49); AST 24 U/L (17-59); African American GFR (CKD) >90 (>60 ml/min/1.73 sqM); Albumin 4.3 g/dL (3.5-5.0); Alkaline Phosphatase 58 U/L (38-126); Anion Gap 8 mmol/L; Blood Urea Nitrogen 18 mg/dL (9-20); Calcium 9.3 mg/dL (8.4-10.2); Carbon Dioxide 24 mmol/L (22-30); Chloride 95 mmol/L (98-107); Glucose 154 mg/dL (74-99); Magnesium 1.9 mg/dL (1.6-2.3); Non-African American GFR(CKD) 85 (>60 ml/min/1.73 sqM); Phosphorus 3.1 mg/dL (2.5-4.5); Potassium 4.1 mmol/L (3.5-5.1); Sodium 127 mmol/L (137-145); Total Bilirubin 0.7 mg/dL (0.2-1.3); Total Protein 7.1 g/dL (6.3-8.2)
[2024-03-17 18:36] LABS: Partial Thromboplastin Time 22.6 sec (22.0-30.0); Prothrombin Time 10.7 sec (10.0-12.5)
[2024-03-17 18:50] LABS: Appearance,Urine Clear (Clear); Bilirubin,Urine Negative (Negative); Blood,Urine Negative (Negative); Color,Urine Colorless; Glucose,Urine (UA) Trace (Negative); Ketones,Urine Negative (Negative); Leukocyte Esterase,Urine Negative (Negative); Nitrite,Urine Negative (Negative); PH, Urine 6.5 (5.0-8.0); Protein,Urine Negative (Negative); Specific Gravity,Urine 1.011 (1.001-1.035); Urobilinogen,Urine <2.0 mg/dL (<2.0)
[2024-03-17 19:11] LABS: Eosinophils # (M) 0.18 k/uL (0-0.7); Lymphocytes # (M) 3.94 k/uL (1.0-4.8); Monocytes # (M) 1.07 k/uL (0-1.0); Neutrophils # (M) 12.71 k/uL (1.3-7.7); Neutrophils % (M) 71 %; Nucleated Red Blood Cells 0 /100 WBC (0-0); Total Cells Counted 100
--- NOTE | 2024-03-17 19:33 | CT ---
EXAMINATION TYPE: CT abdomen pelvis w con DATE OF EXAM: 03/17/2024 6:58 PM COMPARISON: None. CLINICAL INDICATION: Male, 73 years old with history of Abdominal pain; Pt states he hasn't felt good in three weeks. Reports upset stomach, cold all the time, sore back, decreased appetite. TECHNIQUE: Axial CT abdomen pelvis w con;Sagittal and coronal reformats were created on a separate w orkstation. Contrast used:100 ml mL of Isovue 300 with IV Contrast, (none if empty) Oral contrast used: without Oral Contrast (none if empty) CT DLP: 1573.8 mGycm, Automated exposure control for dose reduction was used. FINDINGS: LOWER CHEST: There is mildly enlarged for size. ABDOMEN LIVER: Diffusely hypoattenuating parenchyma. GALLBLADDER AND BILE DUCTS: Unremarkable. PANCREAS: Unremarkable. SPLEEN: Unremarkable. ADRENAL GLANDS: Unremarkable. KIDNEYS AND URETERS: No evidence of hydronephrosis or renal calculus. The ureters are unremarkable. PELVIS BLADDER: No evidence for wall thickening or mass given limitations of exam. REPRODUCTIVE: Unremarkable. ABDOMEN & PELVIS STOMACH AND BOWEL: No evidence of bowel obstruction. Scattered colonic diverticula. Appendix is juan carlos l. PERITONEUM/RETROPERITONEUM: No evidence of pneumoperitoneum or free fluid. VASCULATURE: Mild atherosclerotic calcifications are present throughout the abdominal aorta and its b ranches. No evidence of aortic aneurysm. MUSCULOSKELETAL: No acute osseous abnormalities. Mild disc degeneration changes are present throughou t the thoracolumbar spine. LYMPH NODES: No gross evidence for lymphadenopathy. SOFT TISSUE/ABDOMINAL WALL: Tiny fat-containing umbilical hernia. IMPRESSION: 1. No evidence for acute abdominal process. Hepatic steatosis. 2. Mild cardiomegaly. 3. No obstructive uropathy or renal calculus. 4. Colonic diverticulosis. [facility], , 03/17/2024 7:31 PM
--- NOTE | 2024-03-17 19:41 | XR ---
EXAMINATION TYPE: XR chest 2V DATE OF EXAM: 03/17/2024 7:07 PM COMPARISON: Chest radiographs from 03/20/2022 CLINICAL INDICATION: Male, 73 years old with history of Weakness; [facility] TECHNIQUE: XR chest 2V Frontal and lateral views of the chest. FINDINGS: Lungs/Pleura: There is no evidence of pleural effusion, focal consolidation, or pneumothorax. Pulmonary vascularity: Unremarkable. Heart/mediastinum: Cardiomediastinal silhouette is unremarkable. Musculoskeletal: No acute osseous pathology. There is fixation hardware in the lower cervical spine. IMPRESSION: Rotated exam. No acute cardiopulmonary disease/process. [facility], , 03/17/2024 7:39 PM
--- NOTE | 2024-03-17 20:02 | ED ---
General Adult HPI - General Chief complaint: Weakness Stated complaint: Body Aches Time Seen by Provider: 03/17/24 17:37 Source: patient, family Mode of arrival: ambulatory Limitations: no limitations - History of Present Illness Initial comments: 73-year-old male presenting with chief complaint of "I just do not feel good". Patient reports that he has had nausea, fatigue, body aches, decreased appetite, and has felt "cold all the time" for the past 3 weeks. He is also had diarrhea. He has been seen by his PCP Dr. Manzano. States that he has been on a few rounds of steroids, feels better for a bit and then symptoms returned. He denies any chest pain, difficulty breathing, abdominal pain, fever, cough, congestion, sore throat, dysuria, hematuria. Patient reports that about 4 weeks ago they traveled to [place] to go hunting and they were ticks everywhere, he is requesting Lyme disease testing. - Related Data Home Medications Medication Instructions Recorded Confirmed Montelukast [Singulair] 10 mg PO DAILY 07/20/16 03/21/22 Omeprazole 20 mg PO HS 07/20/16 03/21/22 Ascorbic Acid [Vitamin C] 1,000 mg PO DAILY 03/21/22 03/21/22 Cholecalciferol [Vitamin D3 (25 50 mcg PO DAILY 03/21/22 03/21/22 Mcg = 1000 Iu)] Cyanocobalamin (Vitamin B-12) 1,000 mcg PO DAILY 03/21/22 03/21/22 [Vitamin B-12] Cyclobenzaprine [Flexeril] 10 mg PO HS PRN 03/21/22 03/21/22 Gabapentin 600 mg PO BID 03/21/22 03/21/22 Zinc Gluconate [Zinc] 50 mg PO DAILY 03/21/22 03/21/22 Previous Rx's Medication Instructions Recorded Aspirin 81 mg PO DAILY #30 tab 03/22/22 Atorvastatin [Lipitor] 40 mg PO HS #30 tab 03/22/22 Nitroglycerin Sl Tabs [Nitrostat] 0.4 mg SUBLINGUAL Q5M PRN #20 tab 03/22/22 Prasugrel [Effient] 10 mg PO DAILY #30 tab 03/22/22 metFORMIN HCL [Glucophage] 850 mg PO BID #60 tab 03/22/22 Metoprolol Tartrate [Lopressor] 12.5 mg PO BID #60 tab 03/23/22 lisinopriL [Zestril] 5 mg PO DAILY #30 tab 03/23/22 Allergies Allergy/AdvReac Type Severity Reaction Status Date / Time Iodinated Contrast Media AdvReac BODY FELT Verified 03/17/24 17:28 [Iodinated Contrast Media - FROZEN Oral and] Review of Systems ROS Statement: Those systems with pertinent positive or pertinent negative responses have been documented in the HPI. ROS Other: All systems not noted in ROS Statement are negative. Past Medical History Past Medical History: Diabetes Mellitus, GERD/Reflux, Hearing Disorder / Deafness, Hyperlipidemia, Hypertension, Musculoskeletal Disorder Additional Past Medical History / Comment(s): RT UPPER ARM NT. PAIN IN NECK, LOWER BACK - HX OF PAIN INJ.. History of Any Multi-Drug Resistant Organisms: MRSA Date of last positivie culture/infection: 2006 MDRO Source:: RT WAISTLINE, TESTICLE Past Surgical History: Orthopedic Surgery Additional Past Surgical History / Comment(s): Repaired ruptured disks in back. Right knee surgery. Bilat shoulder surgery. Past Anesthesia/Blood Transfusion Reactions: No Reported Reaction Past Psychological History: No Psychological Hx Reported Smoking Status: Current every day smoker Past Alcohol Use History: Rare Past Drug Use History: None Reported - Past Family History Father Family Medical History: Cancer Mother Family Medical History: Cancer General Exam Limitations: no limitations General appearance: alert, in no apparent distress Head exam: Present: atraumatic, normocephalic, normal inspection Eye exam: Present: normal appearance, EOMI Neck exam: Present: normal inspection. Absent: meningismus Respiratory exam: Present: normal lung sounds bilaterally. Absent: respiratory distress, wheezes, rales, rhonchi, stridor Cardiovascular Exam: Present: regular rate, normal rhythm, normal heart sounds. Absent: systolic murmur, diastolic murmur, rubs, gallop, clicks GI/Abdominal exam: Present: soft, tenderness (Diffuse discomfort). Absent: distended, guarding, rebound, rigid Neurological exam: Present: alert, oriented X3 Psychiatric exam: Present: normal affect, normal mood Skin exam: Present: warm, dry Course Vital Signs 03/17/24 03/17/24 17:29 20:50 Temperature 97.9 F Pulse Rate 81 62 Respiratory 20 16 Rate Blood Pressure 126/79 107/62 O2 Sat by Pulse 97 97 Oximetry Medical Decision Making - Medical Decision Making Was pt. sent in by a medical professional or institution (, PA, [facility]TER, urgent care, hospital, or fpc...) When possible be specific @ -No Did you speak to anyone other than the patient for history (EMS, parent, family, police, friend...)? What history was obtained from this source @ -Girlfriend Did you review nursing and triage notes (agree or disagree)? Why? @ -I reviewed and agree with nursing and triage notes Were old charts reviewed (outside hosp., previous admission, EMS record, old EKG, old radiological studies, urgent care reports/EKG's, fpc records)? Report findings @ -No old charts were reviewed Differential Diagnosis (chest pain, altered mental status, abdominal pain women, abdominal pain men, vaginal bleeding, weakness, fever, dyspnea, syncope, headache, dizziness, GI bleed, back pain, seizure, CVA, palpatations, mental health, musculoskeletal)? @ -MDM Differential Weakness: Hypoglycemia, shock, sepsis, hyponatremia, anemia, infection, ND, ETOH, adverse medicine reaction, overdose, stroke. ... This is not meant to be an all- inclusive list EKG interpreted by me (3pts min.). @ -EKG shows sinus rhythm with first-degree AV block. Ventricular rate 71. OK interval 211. QRS 165. QT 438. QTc 461. Right bundle branch block. No acute changes from previous EKG X-rays interpreted by me (1pt min.). @ -Chest x-ray shows no acute process CT interpreted by me (1pt min.). @ -CT abdomen and pelvis shows no evidence for acute abdominal process. Hepatic steatosis. Mild cardiomegaly. No obstructive uropathy or renal calculus. Colonic diverticulosis U/S interpreted by me (1pt. min.). @ -None done What testing was considered but not performed or refused? (CT, X-rays, U/S, labs)? Why? @ -None What meds were considered but not given or refused? Why? @ -None Did you discuss the management of the patient with other professionals (professionals i.e. , PA, [employer]TER, lab, RT, psych nurse, social contact worker, garbage worker, teacher, desk officer, home health care case manager)? Give summary @ -No Was smoking cessation discussed for >3mins.? @ -No Was critical care preformed (if so, how long)? @ -No Were there social determinants of health that impacted care today? How? (Homelessness, low income, unemployed, alcoholism, drug addiction, transportation, low edu. Level, literacy, decrease access to med. care, detention, rehab)? @ -No Was there de-escalation of care discussed even if they declined (Discuss DNR or withdrawal of care, Hospice)? DNR status @ -No What co-morbidities impacted this encounter? (DM, HTN, Smoking, COPD, CAD, Cancer, CVA, ARF, Chemo, Hep., AIDS, mental health diagnosis, sleep apnea, morbid obesity)? @ -None Was patient admitted / discharged? Hospital course, mention meds given and route, prescriptions, significant lab abnormalities, going to OR and other pertinent info. @ -73-year-old male presenting with chief complaint of bodyaches, fatigue, nausea, and generally not feeling well for the past 3 weeks. He wants testing for Lyme disease. Patient has also been seen by PCP for this issue, states that he has been on a few rounds of steroids. History and physical examination are conducted. White count 17.9, this may be secondary to steroid use, difficult to determine at this time. Sodium 127 lactic acid 2.8, patient is receiving IV fluids. Negative troponin and no acute changes on EKG. TSH is WNL. Negative for influenza, RSV, COVID. Urine shows no infectious process. Negative chest x-ray and CT of the abdomen and pelvis with contrast. Lyme disease screening is sent out. Patient is educated on today's findings. I offered the patient admission for dehydration, patient declined stating he would rather be discharged home and follow-up with his PCP. I believe this is reasonable. Follow-up with PCP. Report back to ER with any new or worsening symptoms. Discussed return parameters and answered all questions. Patient conveyed verbal understanding and agreed to the plan. I discussed this case in detail with my attending Dr. Baird Undiagnosed new problem with uncertain prognosis? @ -No Drug Therapy requiring intensive monitoring for toxicity (Heparin, Nitro, Insulin, Cardizem)? @ -No Were any procedures done? @ -No Diagnosis/symptom? @ -Dehydration, body aches, fatigue Acute, or Chronic, or Acute on Chronic? @ -Acute Uncomplicated (without systemic symptoms) or Complicated (systemic symptoms)? @ -Uncomplicated Side effects of treatment? @ -No Exacerbation, Progression, or Severe Exacerbation? @ -No Poses a threat to life or bodily function? How? (Chest pain, USA, ND, pneumonia, PE, COPD, DKA, ARF, appy, cholecystitis, CVA, Diverticulitis, Homicidal, Suicidal, threat to staff... and all critical care pts) @ -No immediate threat at this time - Lab Data Result diagrams: 03/17/24 17:54 03/17/24 17:54 Lab Results 03/17/24 03/17/24 03/17/24 Range/Units 17:54 17:54 17:54 WBC 17.9 H (3.8-10.6) k/uL RBC 4.52 (4.30-5.90) m/uL Hgb 14.0 (13.0-17.5) gm/dL Hct 40.5 (39.0-53.0) % MCV 89.4 (80.0-100.0) fL MCH 31.0 (25.0-35.0) pg MCHC 34.6 (31.0-37.0) g/dL RDW 12.3 (11.5-15.5) % Plt Count 318 (150-450) k/uL MPV 6.2 Neutrophils % (Manual) 71 % Lymphocytes % (Manual) 22 % Monocytes % (Manual) 6 % Eosinophils % (Manual) 1 % Neutrophils # (Manual) 12.71 H (1.3-7.7) k/uL Lymphocytes # (Manual) 3.94 (1.0-4.8) k/uL Monocytes # (Manual) 1.07 H (0-1.0) k/uL Eosinophils # (Manual) 0.18 (0-0.7) k/uL Nucleated RBCs 0 (0-0) /100 WBC Manual Slide Review Performed PT 10.7 (10.0-12.5) sec INR 1.0 (<1.2) APTT 22.6 (22.0-30.0) sec Sodium 127 L (137-145) mmol/L Potassium 4.1 (3.5-5.1) mmol/L Chloride 95 L (98-107) mmol/L Carbon Dioxide 24 (22-30) mmol/L Anion Gap 8 mmol/L BUN 18 (9-20) mg/dL Creatinine 0.91 (0.66-1.25) mg/dL Est GFR (CKD-EPI)AfAm >90 (>60 ml/min/1.73 sqM) Est GFR (CKD-EPI)NonAf 85 (>60 ml/min/1.73 sqM) Glucose 154 H (74-99) mg/dL Lactic Ac Sepsis Rflx Plasma Lactic Acid Fermin (0.7-2.0) mmol/L Calcium 9.3 (8.4-10.2) mg/dL Phosphorus 3.1 (2.5-4.5) mg/dL Magnesium 1.9 (1.6-2.3) mg/dL Total Bilirubin 0.7 (0.2-1.3) mg/dL AST 24 (17-59) U/L ALT 35 (4-49) U/L Alkaline Phosphatase 58 (38-126) U/L Troponin I (0.000-0.034) ng/mL Total Protein 7.1 (6.3-8.2) g/dL Albumin 4.3 (3.5-5.0) g/dL TSH 2.340 (0.465-4.680) mIU/L Urine Color Urine Appearance (Clear) Urine pH (5.0-8.0) Ur Specific [place] (1.001-1.035) Urine Protein (Negative) Urine Glucose (UA) (Negative) Urine Ketones (Negative) Urine Blood (Negative) Urine Nitrite (Negative) Urine Bilirubin (Negative) Urine Urobilinogen (<2.0) mg/dL Ur Leukocyte Esterase (Negative) Heterophile Antibody (Negative) Influenza Type A (PCR) (Not Detectd) Influenza Type B (PCR) (Not Detectd) RSV (PCR) (Not Detectd) SARS-CoV-2 (PCR) (Not Detectd) 03/17/24 03/17/24 03/17/24 Range/Units 17:54 17:54 17:54 WBC (3.8-10.6) k/uL RBC (4.30-5.90) m/uL Hgb (13.0-17.5) gm/dL Hct (39.0-53.0) % MCV (80.0-100.0) fL MCH (25.0-35.0) pg MCHC (31.0-37.0) g/dL RDW (11.5-15.5) % Plt Count (150-450) k/uL MPV Neutrophils % (Manual) % Lymphocytes % (Manual) % Monocytes % (Manual) % Eosinophils % (Manual) % Neutrophils # (Manual) (1.3-7.7) k/uL Lymphocytes # (Manual) (1.0-4.8) k/uL Monocytes # (Manual) (0-1.0) k/uL Eosinophils # (Manual) (0-0.7) k/uL Nucleated RBCs (0-0) /100 WBC Manual Slide Review PT (10.0-12.5) sec INR (<1.2) APTT (22.0-30.0) sec Sodium (137-145) mmol/L Potassium (3.5-5.1) mmol/L Chloride (98-107) mmol/L Carbon Dioxide (22-30) mmol/L Anion Gap mmol/L BUN (9-20) mg/dL Creatinine (0.66-1.25) mg/dL Est GFR (CKD-EPI)AfAm (>60 ml/min/1.73 sqM) Est GFR (CKD-EPI)NonAf (>60 ml/min/1.73 sqM) Glucose (74-99) mg/dL Lactic Ac Sepsis Rflx Plasma Lactic Acid Fermin 2.8 H* (0.7-2.0) mmol/L Calcium (8.4-10.2) mg/dL Phosphorus (2.5-4.5) mg/dL Magnesium (1.6-2.3) mg/dL Total Bilirubin (0.2-1.3) mg/dL AST (17-59) U/L ALT (4-49) U/L Alkaline Phosphatase (38-126) U/L Troponin I <0.012 (0.000-0.034) ng/mL Total Protein (6.3-8.2) g/dL Albumin (3.5-5.0) g/dL TSH (0.465-4.680) mIU/L Urine Color Urine Appearance (Clear) Urine pH (5.0-8.0) Ur Specific [place] (1.001-1.035) Urine Protein (Negative) Urine Glucose (UA) (Negative) Urine Ketones (Negative) Urine Blood (Negative) Urine Nitrite (Negative) Urine Bilirubin (Negative) Urine Urobilinogen (<2.0) mg/dL Ur Leukocyte Esterase (Negative) Heterophile Antibody Negative (Negative) Influenza Type A (PCR) (Not Detectd) Influenza Type B (PCR) (Not Detectd) RSV (PCR) (Not Detectd) SARS-CoV-2 (PCR) (Not Detectd) 03/17/24 03/17/24 03/17/24 Range/Units 17:54 17:54 18:42 WBC (3.8-10.6) k/uL RBC (4.30-5.90) m/uL Hgb (13.0-17.5) gm/dL Hct (39.0-53.0) % MCV (80.0-100.0) fL MCH (25.0-35.0) pg MCHC (31.0-37.0) g/dL RDW (11.5-15.5) % Plt Count (150-450) k/uL MPV Neutrophils % (Manual) % Lymphocytes % (Manual) % Monocytes % (Manual) % Eosinophils % (Manual) % Neutrophils # (Manual) (1.3-7.7) k/uL Lymphocytes # (Manual) (1.0-4.8) k/uL Monocytes # (Manual) (0-1.0) k/uL Eosinophils # (Manual) (0-0.7) k/uL Nucleated RBCs (0-0) /100 WBC Manual Slide Review PT (10.0-12.5) sec INR (<1.2) APTT (22.0-30.0) sec Sodium (137-145) mmol/L Potassium (3.5-5.1) mmol/L Chloride (98-107) mmol/L Carbon Dioxide (22-30) mmol/L Anion Gap mmol/L BUN (9-20) mg/dL Creatinine (0.66-1.25) mg/dL Est GFR (CKD-EPI)AfAm (>60 ml/min/1.73 sqM) Est GFR (CKD-EPI)NonAf (>60 ml/min/1.73 sqM) Glucose (74-99) mg/dL Lactic Ac Sepsis Rflx Y Plasma Lactic Acid [place] (0.7-2.0) mmol/L Calcium (8.4-10.2) mg/dL Phosphorus (2.5-4.5) mg/dL Magnesium (1.6-2.3) mg/dL Total Bilirubin (0.2-1.3) mg/dL AST (17-59) U/L ALT (4-49) U/L Alkaline Phosphatase (38-126) U/L Troponin I (0.000-0.034) ng/mL Total Protein (6.3-8.2) g/dL Albumin (3.5-5.0) g/dL TSH (0.465-4.680) mIU/L Urine Color Colorless Urine Appearance Clear (Clear) Urine pH 6.5 (5.0-8.0) Ur Specific [place] 1.011 (1.001-1.035) Urine Protein Negative (Negative) Urine Glucose (UA) Trace H (Negative) Urine Ketones Negative (Negative) Urine Blood Negative (Negative) Urine Nitrite Negative (Negative) Urine Bilirubin Negative (Negative) Urine Urobilinogen <2.0 (<2.0) mg/dL Ur Leukocyte Esterase Negative (Negative) Heterophile Antibody (Negative) Influenza Type A (PCR) Not Detected (Not Detectd) Influenza Type B (PCR) Not Detected (Not Detectd) RSV (PCR) Not Detected (Not Detectd) SARS-CoV-2 (PCR) Not Detected (Not Detectd) Disposition Clinical Impression: Body aches, Fatigue, Dehydration Disposition: HOME SELF-CARE Condition: Fair Instructions (If sedation given, give patient instructions): Dehydration (ED), Fatigue (ED) Additional Instructions: Follow-up with your primary care doctor. Report back to ER with any new or worsening symptoms. Your testing for Lyme disease was sent out and should be ready in about 48 hours. Your white blood cell count was high today, it was 17. 9. You should have your blood work rechecked by your primary care doctor in a week or so to ensure that your white blood cell count has gone down to a normal value Is patient prescribed a controlled substance at d/c from ED?: No Referrals: Andrea Manzano DO [Primary Care Provider] - 1-2 days Time of Disposition: 20:44
[2024-03-17 21:04] VITALS: BP 107/62; PULSE 62; RESP 16
== END 2024-03-17 20:50 | disposition home or self-care (01) ==
LOC: EC 17:25
DX: R52 Pain, unspecified (principal); R53.83 Other fatigue; E86.0 Dehydration; F17.200 Nicotine dependence, unspecified, uncomplicated; Z91.041 Radiographic dye allergy status
CPT/HCPCS: 36415; 93005; 80053; 83605; 83735; 84100; 84443; 84484; 85025; 85610; 85730; 86308; 81003; 86618; 87636; 71046; 74177; 99285; 96374; 96375 ×3; J1200; J2405; J3490; Q9967; J2919

== ENCOUNTER 2024-03-28 11:16 | Inpatient (IN) | payer MEDICARE ==
--- NOTE | 2024-03-28 11:50 | ED ---
General Adult HPI - General Chief complaint: Nausea/Vomiting/Diarrhea Stated complaint: NV Time Seen by Provider: 03/28/24 11:35 Source: patient, family, RN notes reviewed, old records reviewed Mode of arrival: ambulatory Limitations: no limitations - History of Present Illness Initial comments: This is a 73-year-old male who presents to the emergency department stating that since February 18 he has had episodes of nausea and vomiting and sometimes dry heaving. Patient states some days he does not vomit he can go 3 to 4 to 5 days without vomiting but then he starts up again. Patient states last night he went out and got a root beer float had a couple sips and then began having the dry heaves. Patient states it happened again today but currently lying in the bed he has no symptoms. Patient denies any fevers or chills. Patient denies abdomi nal pain patient has chest pain patient has difficulty breathing shortness of breath. Patient states she has had an extensive workup but no one can find out why this keeps occurring. - Related Data Home Medications Medication Instructions Recorded Confirmed Montelukast [Singulair] 10 mg PO DAILY 07/20/16 03/21/22 Omeprazole 20 mg PO HS 07/20/16 03/21/22 Ascorbic Acid [Vitamin C] 1,000 mg PO DAILY 03/21/22 03/21/22 Cholecalciferol [Vitamin D3 (25 50 mcg PO DAILY 03/21/22 03/21/22 Mcg = 1000 Iu)] Cyanocobalamin (Vitamin B-12) 1,000 mcg PO DAILY 03/21/22 03/21/22 [Vitamin B-12] Cyclobenzaprine [Flexeril] 10 mg PO HS PRN 03/21/22 03/21/22 Gabapentin 600 mg PO BID 03/21/22 03/21/22 Zinc Gluconate [Zinc] 50 mg PO DAILY 03/21/22 03/21/22 Previous Rx's Medication Instructions Recorded Aspirin 81 mg PO DAILY #30 tab 03/22/22 Atorvastatin [Lipitor] 40 mg PO HS #30 tab 03/22/22 Nitroglycerin Sl Tabs [Nitrostat] 0.4 mg SUBLINGUAL Q5M PRN #20 tab 03/22/22 Prasugrel [Effient] 10 mg PO DAILY #30 tab 03/22/22 metFORMIN HCL [Glucophage] 850 mg PO BID #60 tab 03/22/22 Metoprolol Tartrate [Lopressor] 12.5 mg PO BID #60 tab 03/23/22 lisinopriL [Zestril] 5 mg PO DAILY #30 tab 03/23/22 Allergies Allergy/AdvReac Type Severity Reaction Status Date / Time Iodinated Contrast Media AdvReac BODY FELT Verified 03/17/24 17:28 [Iodinated Contrast Media - FROZEN Oral and] Review of Systems ROS Statement: Those systems with pertinent positive or pertinent negative responses have been documented in the HPI. ROS Other: All systems not noted in ROS Statement are negative. Past Medical History Past Medical History: Diabetes Mellitus, GERD/Reflux, Hearing Disorder / Deafness, Hyperlipidemia, Hypertension, Musculoskeletal Disorder Additional Past Medical History / Comment(s): RT UPPER ARM NT. PAIN IN NECK, LOWER BACK - HX OF PAIN INJ.. History of Any Multi-Drug Resistant Organisms: MRSA Date of last positivie culture/infection: 2006 MDRO Source:: RT WAISTLINE, TESTICLE Past Surgical History: Orthopedic Surgery Additional Past Surgical History / Comment(s): Repaired ruptured disks in back. Right knee surgery. Bilat shoulder surgery. Past Anesthesia/Blood Transfusion Reactions: No Reported Reaction Past Psychological History: No Psychological Hx Reported Smoking Status: Former smoker Past Alcohol Use History: Rare Past Drug Use History: None Reported - Past Family History Father Family Medical History: Cancer Mother Family Medical History: Cancer General Exam - General Exam Comments Initial Comments: GENERAL: Patient is well-developed and well-nourished. Patient is nontoxic and well- hydrated and is in no acute distress. ENT: Neck is soft and supple. No significant lymphadenopathy is noted. Oropharynx is clear. Moist mucous membranes. Neck has full range of motion without eliciting any pain. EYES: The sclera were anicteric and conjunctiva were pink and moist. Extraocular movements were intact and pupils were equal round and reactive to light. Eyelids were unremarkable. PULMONARY: Unlabored respirations. Good breath sounds bilaterally. No audible rales rhonchi or wheezing was noted. CARDIOVASCULAR: There is a regular rate and rhythm without any murmurs gallops or rubs. ABDOMEN: Soft and nontender with normal bowel sounds. SKIN: Skin is clear with no lesions or rashes and otherwise unremarkable. NEUROLOGIC: Patient is alert and oriented x3. Cranial nerves II through XII are grossly intact. Motor and sensory are also intact. Normal speech, volume and content. Symmetrical smile. MUSCULOSKELETAL: Normal extremities with adequate strength and full range of motion. No lower extremity swelling or edema. No calf tenderness. LYMPHATICS: No significant lymphadenopathy is noted PSYCHIATRIC: Normal psychiatric evaluation. Limitations: no limitations Course Vital Signs 03/28/24 11:23 Temperature 98.3 F Pulse Rate 83 Respiratory 18 Rate Blood Pressure 121/77 O2 Sat by Pulse 97 Oximetry Medical Decision Making - Medical Decision Making Was pt. sent in by a medical professional or institution ([facility] Hernandez, [employer], urgent c are, hospital, or residential...) When possible be specific @ -No Did you speak to anyone other than the patient for history (EMS, parent, family, police, friend...)? What history was obtained from this source @ -No Did you review nursing and triage notes (agree or disagree)? Why? @ -I reviewed and agree with nursing and triage notes Were old charts reviewed (outside hosp., previous admission, EMS record, old EKG, old radiological studies, urgent care reports/EKG's, residential records)? Report findings @ -No old charts were reviewed Differential Diagnosis? @ -Normal pressure hydrocephalus, migraine headache, viral syndrome, this is not an all-inclusive list EKG interpreted by me (3pts min.). @ -As above X-rays interpreted by me (1pt min.). @ -None done CT interpreted by me (1pt min.). @ -CT of the brain shows normal pressure hydrocephalus U/S interpreted by me (1pt. min.). @ -None done What testing was considered but not performed or refused? (CT, X-rays, U/S, labs)? Why? @ -None What meds were considered but not given or refused? Why? @ -None Did you discuss the management of the patient with other professionals (professionals i.e. ART Hernandez, [employer], lab, RT, psych nurse, social service agency director, oil and gas specialist, teacher, loans officer, disability case manager)? Give summary @ -I spoke to Dr. Bains he evaluated the patient and determined that the patient will be admitted. I spoke with the significant hospitalist agreed admit the patient. Was smoking cessation discussed for >3mins.? @ -No Was critical care preformed (if so, how long)? @ -No Were there social determinants of health that impacted care today? How? (Homelessness, low income, unemployed, alcoholism, drug addiction, transportation, low edu. Level, literacy, decrease access to med. care, snf, rehab)? @ -No Was there de-escalation of care discussed even if they declined (Discuss DNR or withdrawal of care, Hospice)? DNR status @ -No What co-morbidities impacted this encounter? (DM, HTN, Smoking, COPD, CAD, Cancer, CVA, ARF, Chemo, Hep., AIDS, mental health diagnosis, sleep apnea, morbid obesity)? @ -None Was patient admitted / discharged? Hospital course, mention meds given and route, prescriptions, significant lab abnormalities, going to OR and other pertinent info. @ -Patient remained asymptomatic throughout the ED stay. Dr. Bains saw the patient in the emergency department determined to admit the patient. Undiagnosed new problem with uncertain prognosis? @ -No Drug Therapy requiring intensive monitoring for toxicity (Heparin, Nitro, Insulin, Cardizem)? @ -No Were any procedures done? @ -No Diagnosis/symptom? @ -Normal pressure hydrocephalus Acute, or Chronic, or Acute on Chronic? @ -Acute Uncomplicated (without systemic symptoms) or Complicated (systemic symptoms)? @ -Complicated Side effects of treatment? @ -No Exacerbation, Progression, or Severe Exacerbation? @ -No Poses a threat to life or bodily function? How? (Chest pain, [place], [place], pneumonia, PE, COPD, DKA, ARF, appy, cholecystitis, CVA, Diverticulitis, Homicidal, Suicidal, threat to staff... and all critical care pts) @ -No - Lab Data Result diagrams: 03/28/24 12:14 03/28/24 12:14 Lab Results 03/28/24 03/28/24 Range/Units 12:14 12:14 WBC 11.9 H (3.8-10.6) k/uL RBC 4.44 (4.30-5.90) m/uL Hgb 13.7 (13.0-17.5) gm/dL Hct 39.7 (39.0-53.0) % MCV 89.5 (80.0-100.0) fL MCH 31.0 (25.0-35.0) pg MCHC 34.6 (31.0-37.0) g/dL RDW 12.6 (11.5-15.5) % Plt Count 234 (150-450) k/uL MPV 6.6 Neutrophils % (Manual) 83 % Lymphocytes % (Manual) 10 % Monocytes % (Manual) 6 % Eosinophils % (Manual) 1 % Neutrophils # (Manual) 9.88 H (1.3-7.7) k/uL Lymphocytes # (Manual) 1.19 (1.0-4.8) k/uL Monocytes # (Manual) 0.71 (0-1.0) k/uL Eosinophils # (Manual) 0.12 (0-0.7) k/uL Nucleated RBCs 0 (0-0) /100 WBC Manual Slide Review Performed RBC Morphology Normal Sodium 129 L (137-145) mmol/L Potassium 4.0 (3.5-5.1) mmol/L Chloride 94 L (98-107) mmol/L Carbon Dioxide 27 (22-30) mmol/L Anion Gap 8 mmol/L BUN 26 H (9-20) mg/dL Creatinine 1.08 (0.66-1.25) mg/dL Est GFR (CKD-EPI)AfAm 79 (>60 ml/min/1.73 sqM) Est GFR (CKD-EPI)NonAf 69 (>60 ml/min/1.73 sqM) Glucose 139 H (74-99) mg/dL Calcium 9.3 (8.4-10.2) mg/dL Magnesium 1.6 (1.6-2.3) mg/dL Total Bilirubin 1.0 (0.2-1.3) mg/dL AST 28 (17-59) U/L ALT 37 (4-49) U/L Alkaline Phosphatase 59 (38-126) U/L Total Protein 6.8 (6.3-8.2) g/dL Albumin 4.1 (3.5-5.0) g/dL Lipase 52 (23-300) U/L Disposition Clinical Impression: Normal pressure hydrocephalus Disposition: ADMITTED IP TO THIS HOSP Referrals: Andrea Manzano DO [Primary Care Provider] - 1-2 days Time of Disposition: 15:02
[2024-03-28] MEDS: SODIUM CHLORIDE 0.9% 500 ML 500 ML IV ONE (12:14)
--- NOTE | 2024-03-28 12:35 | CT ---
EXAMINATION TYPE: CT brain wo con CT DLP: 1242.6 mGycm, Automated exposure control for dose reduction was used. DATE OF EXAM: 03/28/2024 12:25 PM COMPARISON: Prior CT Brain from 08/09/2014. CLINICAL INDICATION:Male, 73 years old with history of Headache new onset, headache TECHNIQUE: Brain: Multiple axial CT images of the brain were obtained without IV contrast. . Coronal and sagitta l reformats reviewed. FINDINGS: Brain: Extra-axial spaces: No abnormal extra-axial fluid collections. Ventricular system: Diffuse dilatation of the lateral ventricles and third ventricle. Cerebral parenchyma: Mild cerebral atrophy. No acute intraparenchymal hemorrhage or mass effect. The esquivel-white junction is well differentiated. Scattered hypoattenuating areas are seen within the lesly ventricular white matter. Nonspecific bilateral punctate basal ganglia calcifications. Cerebellum: Unremarkable. Mass effect: No evidence of midline shift. Intracranial vasculature: Atherosclerotic calcifications of the intracranial vessels. Soft tissues: Normal. Calvarium/osseous structures: No depressed skull fracture. Paranasal sinuses and mastoid air cells: Mastoid air cells are clear. Air-fluid level within the left maxillary sinus. Visualized orbits: Bilateral aphakia IMPRESSION: 1. Hydrocephalus which appears more than level of cerebral atrophy. Correlate clinically for normal pressure hydrocephalus versus other etiologies. 2. No acute intracranial hemorrhage or midline shift. 3. Nonspecific white matter changes, likely secondary to chronic small vessel ischemic disease. 4. Air-fluid level within the left maxillary sinus. Correlate for possible acute sinusitis. [facility], , 03/28/2024 12:32 PM
[2024-03-28 12:50] LABS: ALT 37 U/L (4-49); AST 28 U/L (17-59); African American GFR (CKD) 79 (>60 ml/min/1.73 sqM); Albumin 4.1 g/dL (3.5-5.0); Alkaline Phosphatase 59 U/L (38-126); Anion Gap 8 mmol/L; Blood Urea Nitrogen 26 mg/dL (9-20); Calcium 9.3 mg/dL (8.4-10.2); Carbon Dioxide 27 mmol/L (22-30); Chloride 94 mmol/L (98-107); Glucose 139 mg/dL (74-99); Lipase 52 U/L (23-300); Magnesium 1.6 mg/dL (1.6-2.3); Non-African American GFR(CKD) 69 (>60 ml/min/1.73 sqM); Sodium 129 mmol/L (137-145); Total Protein 6.8 g/dL (6.3-8.2)
[2024-03-28 12:59] LABS: HCT 39.7 % (39.0-53.0); HGB 13.7 gm/dL (13.0-17.5); MCHC 34.6 g/dL (31.0-37.0); MCV 89.5 fL (80.0-100.0); Mean Platelet Volume 6.6; Platelet Count 234 k/uL (150-450); RBC 4.44 m/uL (4.30-5.90); RDW 12.6 % (11.5-15.5); WBC 11.9 k/uL (3.8-10.6)
[2024-03-28 13:17] LABS: Eosinophils # (M) 0.12 k/uL (0-0.7); Lymphocytes # (M) 1.19 k/uL (1.0-4.8); Monocytes # (M) 0.71 k/uL (0-1.0); Neutrophils # (M) 9.88 k/uL (1.3-7.7); Neutrophils % (M) 83 %; Nucleated Red Blood Cells 0 /100 WBC (0-0); Total Cells Counted 100
[2024-03-28 13:18] LABS: RBC Morphology Normal
--- NOTE | 2024-03-28 15:41 | P.CNNES ---
History of Present Illness Consult date: 03/28/24 Requesting physician: Bryce Rucker Reason for Consult: Abnormal head CT History of Present Illness: Patient is a 73-year-old right-handed male follow-up with history of hypertension, diabetes, tobacco use, came to the hospital Today at 11:16 AM for almost 4-week history of neurological symptoms. Patient's significant other was also present, who provided with a history. She mentioned that patient woke up at 850 in the morning and was feeling fine. At 8:30 AM, he woke to take his medications and then he threw it up. He did seem emesis last night after he drank couple sips of root beer. He began to. He has been doing off and on for last few weeks. Since around before , he has been having headache off and on, which he rates 7/10, last for about few hours until he takes Tylenol. The headache goes away for 1 to 2 days and comes back. He never has any history of headaches. He complains of some low-grade fever, although patient girlfriend denies, checking it every day and was around 97.8. He complains of some neck ache and headache. On Wednesday, 2 days ago, he slept almost all day, woke up at 8 PM and wanted to know when he was going to bed. He is not slightly confused. He has been feeling very cold, putting extra layers. He has been sweating at night. He has had negative flu, COVID and Lyme titer testing. Patient's boyfriend mentions that he would be walking 15 steps and has to hang onto the wall. Some that she started shuffling. He is walking slow, deliberate. He is "not acting like himself". 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 His memory is grossly okay, but sometimes he gets forgetful as mentioned above. He has been feeling tired. Denies any strokelike symptoms like slurred speech facial droop or loss of vision. Vital signs arrival blood pressure 121/77, pulse 83 temperature 98.3. Blood test shows normal hemoglobin WBC 11.9, platelets 234, sodium 129 potassium 4.0, BUN 26 creatinine 1.08. Hepatic panel is normal, lipase normal. Patient has normal thyroid functions on 03/24/2024. Lyme titer negative. CT head revealed hydrocephalus which appears more than level of cerebral atrophy. Correlate clinically for normal pressure hydrocephalus versus other etiologies. No acute intracranial hemorrhage or midline shift. I personally reviewed CT head and agree with the findings. Mild hydrocephalus. When compared to the CT head from 08/09/2014, there is more prominence of the ventricles. There is mild left axilla sinus disease otherwise clear. External auditory canals are clear. Patient has been smoking since 2019 after he had divorce. He used to smoke cigars, but then switched to cigarettes the fourth pack per day. He drinks alcohol very occasionally. No marijuana. He has history of diabetes for 8 or 9 years and has hypertension as well. Patient does take aspirin 81 mg daily. Review of Systems All review of systems reviewed, and is mentioned in HPI. Past Medical History Past Medical History: Diabetes Mellitus, GERD/Reflux, Hearing Disorder / Deafness, Hyperlipidemia, Hypertension, Musculoskeletal Disorder Additional Past Medical History / Comment(s): RT UPPER ARM NT. PAIN IN NECK, LOWER BACK - HX OF PAIN INJ.. History of Any Multi-Drug Resistant Organisms: MRSA Date of last positivie culture/infection: 2006 MDRO Source:: RT WAISTLINE, TESTICLE Past Surgical History: Orthopedic Surgery Additional Past Surgical History / Comment(s): Repaired ruptured disks in back. Right knee surgery. Bilat shoulder surgery. Past Anesthesia/Blood Transfusion Reactions: No Reported Reaction Past Psychological History: No Psychological Hx Reported Smoking Status: Former smoker Past Alcohol Use History: Rare Past Drug Use History: None Reported - Past Family History Father Family Medical History: Cancer Mother Family Medical History: Cancer Medications and Allergies Home Medications Medication Instructions Recorded Confirmed Type Aspirin EC [Ecotrin Low Dose] 81 mg PO DAILY 03/28/24 03/28/24 History Atorvastatin [Lipitor] 40 mg PO HS 03/28/24 03/28/24 History Codeine Phosphate/Guaifenesin 10 ml PO Q12H PRN 03/28/24 03/28/24 History [Codeine Phosphate/Guaifenesin 10-100 mg/5 ml] Cyclobenzaprine [Flexeril] 10 mg PO HS PRN 03/28/24 03/28/24 History Ezetimibe [Zetia] 10 mg PO DAILY 03/28/24 03/28/24 History Gabapentin 600 mg PO TID 03/28/24 03/28/24 History HYDROcodone/APAP 7.5-325MG [[place] 1 tab PO QID PRN 03/28/24 03/28/24 History 7.5-325] Losartan [Cozaar] 50 mg PO DAILY 03/28/24 03/28/24 History Metoprolol Tartrate [Lopressor] 12.5 mg PO BID 03/28/24 03/28/24 History Omeprazole [PriLOSEC] 20 mg PO HS 03/28/24 03/28/24 History Sildenafil Citrate 100 mg PO Q72H PRN 03/28/24 03/28/24 History Sodium Bicarbonate Tab 650 mg PO BID 03/28/24 03/28/24 History metFORMIN HCL [Glucophage] 850 mg PO TID-W/MEALS 03/28/24 03/28/24 History Allergies Allergy/AdvReac Type Severity Reaction Status Date / Time Iodinated Contrast Media AdvReac BODY FELT Verified 03/28/24 16:12 [Iodinated Contrast Media - FROZEN Oral and] Physical Examination - Vital Signs Vital Signs: Vital Signs Temp Pulse Resp BP Pulse Ox 03/28/24 11:23 98.3 F 83 18 121/77 97 Intake and Output 03/27/24 03/28/24 03/28/24 22:59 06:59 14:59 Other: Weight 102.512 kg Patient is an elderly male, in no acute distress. Patient is alert awake oriented to time place and person. He knows it is 03/28/2024 and that he is in [facility] imported on [place]. Speech and language functions are normal. Patient can name and repeat very well. No aphasia or dysarthria. Attention, concentration and fund of knowledge is adequate. Patient is very hard of hearing. On cranial nerve examination, pupils are equal, round and reacting to light, visual gil are full on confrontation, with no neglect on double simultaneous stimulation. Extraocular muscles are intact with no nystagmus. Face is symmet alirio, tongue protrudes to the midline. Palatal elevation and sensation normal, hearing is moderate to severely decreased and shoulder shrug normal, facial sensation normal. On muscle strength testing, there is no pronator drift and the strength is normal in arms and legs distally and proximally. Deep tendon reflexes are symmetric 1+ at the biceps, 1+ decubitus, 1 at the knees. Plantars are flat on the right, possible upgoing on the left. Sensory to touch is equal with no neglect on double simultaneous stimulation. Cerebellar function showed no ataxia for [id number] testing. No dysd iadochokinesia. No ataxia for [id number] testing on either side. Tone and bulk of muscles normal. Gait patient walks somewhat with narrow base. He has difficulty walking tandem. He can walk on his toes and heels, Romberg was mildly positive. On general examination, there is no carotid bruit or murmur, S1-S2 audible. Chest is clear on consultation. Abdomen is soft nontender. No organomegaly, bowel sounds present. Peripheral pulses are present. No peripheral edema. Results - Laboratory Findings CBC and BMP: 03/28/24 12:14 03/28/24 12:14 Abnormal Lab Findings: Abnormal Labs 03/28/24 12 12:14 12:14 WBC 11.9 H Neutrophils # (Manual) 9.88 H Sodium 129 L Chloride 94 L BUN 26 H Glucose 139 H Assessment and Plan Assessment: * 73-year-old male admitted with 4-week history of multiple neurological symptom s including dizziness, intermittent headache, gait imbalance, intermittent nausea vomiting. Exact cause is uncertain. CT head revealed possibility of hydrocephalus. Rule out NPH, or other causes. Rule out peripheral vestibular dysfunction. * Hypertension * Diabetes * Tobacco use * Hard of hearing Plan: * MRI of the brain with and without contrast, evaluate for structural abnormality, evaluate for hydrocephalus. * May need a Lumbar Puncture * Carotid Doppler, rule out stenosis * B12, folate * Neurology will follow. Thank you for the consult. Time with Patient: Greater than 30
[2024-03-28] MEDS: SODIUM CHLORIDE 0.9% 1,000 ML IV ONE (16:02)
[2024-03-28] MEDS ORDERED: guaiFENesin-Coden 100-10MG/5ML 10 ML CUP PO PRN (19:38)
[2024-03-28] MEDS ORDERED: CYCLOBENZAPRINE 10 MG TAB PO PRN (19:38)
[2024-03-28] MEDS ORDERED: DEXTROSE 50% SYRINGE 50 ML IVP PRN ×2 (19:39)
[2024-03-28] MEDS: ACETAMINOPHEN TAB 325 MG TAB PO PRN (19:56)
[2024-03-28 20:04] LABS: Glucose,Whole Blood 192 mg/dL (70-110)
[2024-03-28] MEDS: HEPARIN SODIUM,PORCINE 5,000 UNIT/ML 1 ML VIAL SQ SCH (20:17)
[2024-03-28] MEDS: ATORVASTATIN 40 MG TAB PO SCH (20:17)
[2024-03-28] MEDS: PANTOPRAZOLE 40 MG/10 ML VIAL IVP SCH (20:17)
[2024-03-28] MEDS: INSULIN ASPART (NovoLOG) 100 UNIT/ML VIAL SQ SCH (20:17)
[2024-03-28] MEDS: SODIUM BICARBONATE TAB 650 MG TAB PO SCH (20:17)
[2024-03-28] MEDS: HYDROcodone/APAP 7.5-325MG 1 EACH TAB PO PRN (20:58)
[2024-03-28] MEDS: GABAPENTIN 300 MG CAP PO SCH (21:00)
[2024-03-28] MEDS ORDERED: NON FORMULARY DRUG (Omeprazole 20 MG Capsule.Dr) PO SCH (21:00)
--- NOTE | 2024-03-29 00:10 | HP ---
HISTORY AND PHYSICAL CHIEF COMPLAINT: Nausea and vomiting. HISTORY OF PRESENT ILLNESS: A 73-year-old gentleman with a past medical history of multiple medical problems including diabetes, hypertension, hyperlipidemia, recurrent episodes of nausea and vomiting. The patient came to [facility] ER and the CT showed hydrocephalus. The patient has not been evaluated by neurosurgeon. Dr. Walton recommends MRI and carotid Doppler. There is no history of fever, rigors, or chills at this time. PAST MEDICAL HISTORY: History of GERD, hypertension, hyperlipidemia, and diabetes. Rest of the history and rest of the chart is also reviewed. HOME MEDICATIONS: None. ALLERGIES: Iodinated contrast dyes. FAMILY HISTORY: History of cancer in the family. SOCIAL HISTORY: Previous history of smoking. REVIEW OF SYSTEMS: Fourteen-point review is negative except as mentioned earlier. PHYSICAL EXAMINATION: VITAL SIGNS: Pulse is 83, blood pressure 120/70, and respirations 18. HEENT: Conjunctivae normal. NECK: No JVD. CARDIOVASCULAR: S1, S2. ABDOMEN: Soft. LEGS: No edema. NERVOUS SYSTEM: Nonfocal. LABORATORY DATA: Sodium 110. Rest of labs are noted. ASSESSMENT: 1. Nausea and vomiting, recurrent, possible acute gastritis. 2. Possible hydrocephalus. 3. Hyponatremia. 4. Diabetes mellitus type 2. 5. Hypertension. 6. Hyperlipidemia. 7. Multiple medical issues. RECOMMENDATIONS AND DISCUSSION: This 73-year-old gentleman with multiple complex medical issues. We will monitor the patient closely. Continue the current medications. Continue symptomatic treatment. MRI. Neurology evaluation. The patient will require further evaluation including lumbar puncture and evaluation by Neurosurgery also. We will closely follow with Neurology. Further recommendations to follow. The patient is currently stable. No headache. MMODL / IJN: [id number] /
[2024-03-29 07:06] LABS: Glucose,Whole Blood 127 mg/dL (70-110)
[2024-03-29] MEDS: ONDANSETRON 4 MG/2 ML VIAL IVP PRN (08:06)
[2024-03-29] MEDS: EZETIMIBE 10 MG TAB PO SCH (08:07)
[2024-03-29 09:27] LABS: BUN/Creat Ratio 18.78 Ratio (12.00-20.00); Blood Urea Nitrogen 16.9 mg/dL (9.0-27.0); Calcium 9.1 mg/dL (8.7-10.3); Carbon Dioxide 25.9 mmol/L (21.6-31.8); Chloride 92 mmol/L (96-109); Glucose 121 mg/dL (70-110); Potassium 3.9 mmol/L (3.5-5.5); Sodium 131 mmol/L (135-145)
[2024-03-29 10:15] LABS: Basophils # (A) 0.06 X 10*3/uL (0.00-0.10); Basophils % (A) 0.5 %; Eosinophils # (A) 0.11 X 10*3/uL (0.04-0.35); Eosinophils % (A) 0.9 %; HCT 41.3 % (39.6-50.0); Lymphocytes # (A) 2.33 X 10*3/uL (0.90-5.00); Lymphocytes % (A) 18.8 %; MCH 30.2 pg (27.0-32.0); MCHC 33.9 g/dL (32.0-37.0); Mean Platelet Volume 9.3 FL (9.5-12.2); Monocytes # (A) 0.99 X 10*3/uL (0.20-1.00); NRBC Per 100 WBC 0 X 10*3/uL (0.00-0.01); Neutrophils # (A) 8.84 X 10*3/uL (1.80-7.70); Neutrophils % (A) 71.5 %; Platelet Count 258 X 10*3/uL (140-440); RBC 4.64 X 10*6/uL (4.40-5.60); RBC Morphology Normal (Normal); WBC 12.37 X 10*3/uL (4.50-10.00)
--- NOTE | 2024-03-29 10:29 | US ---
EXAMINATION TYPE: US carotid duplex BILAT DATE OF EXAM: 03/29/2024 COMPARISON: NONE CLINICAL INDICATION: Male, 73 years old with history of SHORT, dizziness, imbalance; Dizziness Additional History: .... TECHNIQUE: Grayscale, color Doppler and spectral Doppler evaluation of the bilateral carotid systems and vertebral arteries. Indirect Doppler criteria was utilized. FINDINGS: EXAM MEASUREMENTS: RIGHT: Peak Systolic Velocity (PSV) cm/sec ----- Right CCA: 82.8 ----- Right ICA: 111 ----- Right ECA: 128 ICA/CCA ratio: 1.34 RIGHT: End Diastole cm/sec ----- Right CCA: 0.0 ----- Right ICA: 35.3 ----- Right ECA: 3.04 LEFT: Peak Systolic Velocity (PSV) cm/sec ----- Left CCA: 107 ----- Left ICA: 116.0 ----- Left ECA: 114.0 ICA/CCA ratio: 1.08 LEFT: End Diastole cm/sec ----- Left CCA: 23.8 ----- Left ICA: 34.4 ----- Left ECA: 27.9 VERTEBRALS (direction of flow): Right Vertebral: Antegrade Left Vertebral: Unable to visualize Rhythm: Normal TRAUMA REGISTRAR NOTES: Limited exam due to tortuous vessels and high bifurcation. No significant velocity elevations seen Color Doppler imaging shows patency with blood flow throughout the carotid artery. Spectral waveforms are within normal limits. IMPRESSION: Exam is limited secondary to tortuosity of the evaluated vessels. Please note that the left vertebral artery was not visualized on exam. Limited evaluation of the right common carotid artery. Findings c an be better characterized with a CTA neck if clinically warranted. Right: No sonographic evidence for hemodynamically significant stenosis. Left: No sonographic evidence for hemodynamically significant stenosis. [facility], , 03/29/2024 10:26 AM
[2024-03-29 12:05] LABS: Glucose,Whole Blood 134 mg/dL (70-110)
--- NOTE | 2024-03-29 14:36 | XR ---
EXAMINATION TYPE: XR chest 1V portable DATE OF EXAM: 03/29/2024 2:03 PM CLINICAL INDICATION:Male, 73 years old with history of chf; [facility] COMPARISON: Chest radiographs from 03/17/2024 TECHNIQUE: XR chest 1V portable Frontal view of the chest. FINDINGS: Lungs/Pleura: Mild prominence of the interstitial markings bilaterally likely chronic in nature. Ther e is no evidence of pleural effusion, focal consolidation, or pneumothorax. Pulmonary vascularity: Unremarkable. Heart/mediastinum: Cardiomediastinal silhouette is unremarkable. Musculoskeletal: No acute osseous pathology. Upper spinal surgical hardware noted. Other findings: None IMPRESSION: No acute cardiopulmonary disease/process. [facility], , 03/29/2024 2:33 PM
[2024-03-29 15:26] LABS: Appearance,Urine Clear (Clear); Bilirubin,Urine Negative (Negative); Blood,Urine Negative (Negative); Color,Urine Light Yellow; Glucose,Urine (UA) Trace (Negative); Ketones,Urine 1+ (Negative); Leukocyte Esterase,Urine Negative (Negative); Nitrite,Urine Negative (Negative); Protein,Urine Negative (Negative); Specific Gravity,Urine 1.018 (1.001-1.035); Urobilinogen,Urine <2.0 mg/dL (<2.0)
[2024-03-29 15:33] LABS: Amphetamine Screen,Urine Not Detected (NotDetected); Barbiturate Screen,Urine Not Detected (NotDetected); Benzodiazepines Screen,Urine Not Detected (NotDetected); Cocaine Screen,Urine Not Detected (NotDetected); Methadone Screen, Urine Not Detected (NotDetected); Opiate Screen,Urine Detected (NotDetected); Oxycodone Screen, Urine Not Detected (NotDetected); Phencyclidine Screen,Urine Not Detected (NotDetected); Tricyclic Antidepressant,Urine Not Detected (NotDetected); Urn Cannabinoid Scrn Not Detected (NotDetected)
[2024-03-29 17:06] LABS: Glucose,Whole Blood 181 mg/dL (70-110)
--- NOTE | 2024-03-29 18:07 | EEG ---
ELECTROENCEPHALOGRAM REPORT PREAMBLE: This is a 73-year-old male with altered mental status. The patient has possible NPH. EEG FINDINGS: This is a 21-channel digital EEG recorded with video component, utilizing 10/20 international system with referential and bipolar montages. Background consists of moderately well-developed, but somewhat poorly regulated, mixed frequencies of 6 hertz theta, intermixed with some delta slowing in bihemispheric region. Background does not seem to be clearly reactive to eye opening or closing. Occasionally while the patient was more awake, slightly more well-formed 7 hertz posterior dominant theta activity was seen. Different stages of sleep were not seen. No focal or generalized epileptiform activity was seen. Photic driving response was not clearly seen. IMPRESSION: This is an abnormal EEG due to background slowing of mild to moderate degree. This is suggestive of generalized cerebral dysfunction as can be seen with toxic metabolic encephalopathy or related to diffuse structural brain abnormality. Clinical correlation recommended. No epileptiform activity was seen. MMODL / IJN: [id number] /
[2024-03-29] MEDS: ASPIRIN 81 MG PO SCH (18:19)
--- NOTE | 2024-03-29 19:22 | PN ---
PROGRESS NOTE DATE OF SERVICE: 03/29/2024 SUBJECTIVE: This 73-year-old gentleman with possible normal pressure hydrocephalus admitted with nausea and vomiting. The patient is mildly confused. Neurology is following the patient closely for possible MRI. Carotid Doppler was noted, no significant stenosis. PHYSICAL EXAMINATION: VITAL SIGNS: Pulse is 86, blood pressure 124/76, respirations 16. HEENT: Conjunctivae normal. NECK: No JVD. CARDIOVASCULAR: S1, S2. RESPIRATIONS: Diminished breath sounds at the bases. ABDOMEN: Soft, nontender. LEGS: No edema. NERVOUS SYSTEM: Diffusely weak. LABORATORY DATA: WBC 12.37. ASSESSMENT: 1. Nausea, vomiting, recurrent, possible acute gastritis. 2. Possible normal-pressure hydrocephalus. 3. Elevated WBC. 4. Change in mental status, metabolic encephalopathy. 5. Hyponatremia. 6. Diabetes mellitus, type 2. 7. Hypertension. 8. Hyperlipidemia. 9. Multiple medical issues. RECOMMENDATIONS AND DISCUSSION: Recommend to continue current management and continue symptomatic treatment. Otherwise at this time, I would also recommend infection workup including UA with micro, chest x- ray and blood cultures also. Closely follow with Neurology. Otherwise, I would recommend MRI, possible lumbar puncture. Neurosurgery evaluation at some point and closely follow with Neurology. Prognosis guarded. Further recommendations to follow. MMODL / IJN: [id number] /
[2024-03-29 20:25] LABS: Glucose,Whole Blood 171 mg/dL (70-110)
[2024-03-30 06:37] LABS: ALT 35 U/L (4-49); AST 24 U/L (17-59); African American GFR (CKD) >90 (>60 ml/min/1.73 sqM); Albumin/Globulin Ratio 1.4; Alkaline Phosphatase 61 U/L (38-126); Anion Gap 6 mmol/L; Blood Urea Nitrogen 10 mg/dL (9-20); Calcium 9.3 mg/dL (8.4-10.2); Carbon Dioxide 27 mmol/L (22-30); Chloride 95 mmol/L (98-107); Globulin 2.8 g/dL; Glucose 120 mg/dL (74-99); Non-African American GFR(CKD) >90 (>60 ml/min/1.73 sqM); Potassium 3.7 mmol/L (3.5-5.1); Sodium 128 mmol/L (137-145); Total Protein 6.8 g/dL (6.3-8.2)
[2024-03-30 07:40] LABS: Glucose,Whole Blood 156 mg/dL (70-110)
[2024-03-30] MEDS: LORazepam 2 MG/ML INJ IV ONE (09:37)
[2024-03-30 09:57] LABS: Acanthocytes 2+ (None Seen); Basophils # (A) 0.05 X 10*3/uL (0.00-0.10); Basophils % (A) 0.5 %; Eosinophils # (A) 0.09 X 10*3/uL (0.04-0.35); Eosinophils % (A) 0.9 %; HCT 39.4 % (39.6-50.0); HGB 13.2 g/dL (13.0-17.0); Lymphocytes # (A) 1.63 X 10*3/uL (0.90-5.00); Lymphocytes % (A) 16.2 %; MCHC 33.5 g/dL (32.0-37.0); MCV 89.5 FL (80.0-97.0); Mean Platelet Volume 9.2 FL (9.5-12.2); NRBC Per 100 WBC 0 X 10*3/uL (0.00-0.01); Neutrophils # (A) 7.36 X 10*3/uL (1.80-7.70); Neutrophils % (A) 73.2 %; Platelet Count 235 X 10*3/uL (140-440); RDW 12.8 % (11.5-14.5); WBC 10.05 X 10*3/uL (4.50-10.00)
--- NOTE | 2024-03-30 10:19 | P.PN ---
Subjective Progress Note Date: 03/29/24 Patient was seen for follow-up. I was informed by the nurse at 11:28 AM, the patient is more disoriented this morning and family is concerned. He knew that he is in the hospital but not the city. He did not know the year but did not know the president. Daughter was concerned that his symptoms are getting worse. MRI has not been completed because of the holiday. EEG was ordered. When I came to see the patient, patient's two daughters and patient's significant other were present. They mentioned that patient continues to have problem with walking, not picking up his feet well. He slept well last night. He was fine in the morning but around 10 AM developed some speech difficulty, could not s peak words or not making much words, with no coherent words. He is having moments of confusion. Later during the day, his cognitive functions improved. At present patient is speaking clearly, with no focal deficits. Speech is clear. He is oriented. Later he developed "major headache". Objective - Vital Signs Vital signs: Vital Signs Temp 97.9 F 03/29/24 13:46 Pulse 83 03/29/24 13:46 Resp 16 03/29/24 13:46 BP 115/72 03/29/24 13:46 Pulse Ox 96 03/29/24 13:46 FiO2 Intake & Output 03/28/24 03/29/24 03/29/24 18:59 06:59 18:59 Intake Total 600 Output Total 400 Balance 600 -400 Weight 102.512 kg 102.512 kg Intake: Intake, IV Titration 600 Amount Sodium Chloride 0.9% 1, 600 000 ml @ 75 mls/hr IV . [id number] ONE Rx#:[id number] Output: Urine 400 Other: Voiding Method Toilet # Voids 3 - Exam Patient is sitting on the side of the bed, in no acute distress. Speech and language functions appears normal at this time. He is very hard of hearing, which appears to have got worse recently. - Labs CBC & Chem 7: 03/30/24 05:59 03/30/24 05:57 Labs: Abnormal Lab Results - Last 24 Hours (Table) 03/28/24 03/29/24 03/29/24 Range/Units 20:03 02:48 02:48 WBC 12.37 H (4.50-10.00) X 10*3/uL MPV 9.3 L (9.5-12.2) FL Neutrophils # 8.84 H (1.80-7.70) X 10*3/uL Sodium (135-145) mmol/L Chloride (96-109) mmol/L Anion Gap (4.00-12.00) mmol/L Glucose (70-110) mg/dL POC Glucose (mg/dL) 192 H (70-110) mg/dL Hemoglobin A1c 7.8 H (<=6.0) % Urine Glucose (UA) (Negative) Urine Ketones (Negative) Urine Opiates Screen (NotDetected) 03/29/24 03/29/24 03/29/24 Range/Units 02:48 07:05 12:03 WBC (4.50-10.00) X 10*3/uL MPV (9.5-12.2) FL Neutrophils # (1.80-7.70) X 10*3/uL Sodium 131 L (135-145) mmol/L Chloride 92 L (96-109) mmol/L Anion Gap 13.10 H (4.00-12.00) mmol/L Glucose 121 H (70-110) mg/dL POC Glucose (mg/dL) 127 H 134 H (70-110) mg/dL Hemoglobin A1c (<=6.0) % Urine Glucose (UA) (Negative) Urine Ketones (Negative) Urine Opiates Screen (NotDetected) 03/29/24 03/29/24 Range/Units 14:51 14:51 WBC (4.50-10.00) X 10*3/uL MPV (9.5-12.2) FL Neutrophils # (1.80-7.70) X 10*3/uL Sodium (135-145) mmol/L Chloride (96-109) mmol/L Anion Gap (4.00-12.00) mmol/L Glucose (70-110) mg/dL POC Glucose (mg/dL) (70-110) mg/dL Hemoglobin A1c (<=6.0) % Urine Glucose (UA) Trace H (Negative) Urine Ketones 1+ H (Negative) Urine Opiates Screen Detected H (NotDetected) Assessment and Plan Assessment: * 73-year-old male admitted with 4-week history of multiple neurological symptoms including dizziness, intermittent headache, gait imbalance, intermittent nausea vomiting. Exact cause is uncertain. CT head revealed possibility of hydrocephalus. Rule out NPH, or other causes. Rule out peripheral vestibular dysfunction. * Episode of mental confusion, speech difficulty, rule out stroke/TIA. Rule out vertebrobasilar insufficiency. * Hypertension * Diabetes * Tobacco use * Hard of hearing Plan: * MRI of the brain with and without contrast, evaluate for structural abnormality, evaluate for hydrocephalus. * Carotid Doppler was limited secondary to tortuosity of the evaluated vessels. Left vertebral artery was not visualized. Limited evaluation of the right common carotid artery. Otherwise no hemodynamically significant stenosis. CTA was recommended. Patient is allergic to CT dye, therefore will change to MRA of the head and neck. * B12, folate * Continue aspirin 81 mg daily. * Stat EEG was performed which was abnormal due to background slowing of mild to moderate degree. This is suggestive of generalized cerebral dysfunction as can be seen with toxic metabolic encephalopathy or related to diffuse structural brain abnormality. Clinical correlation is recommended. No epileptiform activity was seen. * Patient may need lumbar puncture. Discussed with family members.
--- NOTE | 2024-03-30 10:50 | MR ---
EXAMINATION TYPE: MR brain wo/w con DATE OF EXAM: 03/30/2024 10:32 AM COMPARISON: 03/28/2024. CLINICAL INDICATION: Male, 73 years old with history of Abnormal gait, NPH; PHH, Unsteady gait, NPH. TECHNIQUE: Multi planar, multi sequence imaging was performed through the brain including: T1, T2, In version recovery, susceptibility weighted imaging and gradient echo imaging and Diffusion weighted im aging. The patient was then given intravenous contrast and multi planar, T1 fat-saturation images wer e obtained. IV Contrast: 10 mL Gadobutrol FINDINGS: Mild cerebral atrophy. There is increase in aeration of ventricular system compared to 08/09/2014. Dif fusion-weighted imaging shows no evidence of restricted diffusion to suggest acute/subacute infarct. Intracranial arterial flow voids are maintained. Midline structures show no abnormality. Scattered fo ci of high T2 signal intensity are seen within the periventricular white matter. The susceptibility w eighted images do not reveal any evidence for micro-hemorrhage. After administration of gadolinium, n o abnormal enhancement is seen. The bone marrow signal is within normal limits. Paranasal sinuses and mastoid air cells: No significant paranasal sinus disease. Visualized orbits: Orbital contents are intact. IMPRESSION: 1. Mild dilation of the ventricular system mildly progressed from 2015 correlate for hydrocephalus. Otherwise, No evidence of intracranial mass, acute/subacute infarct, or abnormal enhancement. 2. Nonspecific white matter changes, likely related to small vessel ischemic disease. [facility], , 03/30/2024 10:48 AM
--- NOTE | 2024-03-30 11:00 | MR ---
EXAMINATION TYPE: MR angio head wo/neck wo/w con DATE OF EXAM: 03/30/2024 10:33 AM COMPARISON: 03/29/2024. CLINICAL INDICATION: Male, 73 years old with history of Vertebral arterey occlusion vs dissection;, U nsteady gait, NPH. Technical: MRA brain: 2D and 3-D [id number] Axial with MIP and 3-D reconstruction. Performed on a separate w orkstation. MRA neck: Multiplanar, multi-sequence imaging as well as [id number] and phase was performed extra cranial vasculature of the neck. 3-D reformatted images and maximum intensity projection reformatted images were submitted for evaluation, these are performed on a separate workstation. IV Contrast: 10 cc Gadobutrol Findings: Vertebral arteries: The vertebral arteries are patent. Vertebral arteries are: Codominant. Basilar artery: The basilar artery is intact. The basilar artery bifurcation is normal. Internal Carotid arteries: The cervical, petrous, cavernous and supraclinoid segments are normal. JAS: Patent with no evidence of aneurysm. ACOM: Present without evidence of aneurysm. MCA: Patent with no evidence of aneurysm. W[employer] TECHNICIAN: Patent with no evidence of aneurysm. PCOM: Hypoplastic bilaterally. RIGHT CAROTID SYSTEM: The common carotid artery is patent. The carotid bifurcations demonstrates no e vidence for hemodynamically significant stenosis. The internal carotid artery is patent. LEFT CAROTID SYSTEM: The common carotid artery is patent. The carotid bifurcations demonstrates no e vidence for hemodynamically significant stenosis. The internal carotid artery is patent. The origins of the great vessels and vertebral arteries appear unremarkable. The right vertebral art cecilia is dominant. IMPRESSION: 1. No evidence for vertebral artery occlusion is dissection. Both vertebral arteries are visualized. Nonvisualization on ultrasound was likely due to technique 2. No evidence of intracranial aneurysm or significant stenosis 3. No evidence of significant stenosis at the carotid bifurcations. The carotid and vertebral arteri es are patent. 4. No evidence aneurysm. [facility], , 03/30/2024 10:58 AM
[2024-03-30 11:26] LABS: Glucose,Whole Blood 139 mg/dL (70-110)
[2024-03-30 11:28] VITALS: BP 125/82; PULSE 92; RESP 17; TEMP 98.3
--- NOTE | 2024-03-30 12:18 | CT ---
CT head without contrast. HISTORY: Code stroke. COMPARISON: 03/28/2024 TECHNIQUE: Multiple axial images obtained from skull base to vertex without use of IV contrast myah salas FINDINGS: The ventricles, basal cisterns and sulci over the convexities are moderately enlarged consistent with moderate generalized atrophy. There is no mass effect or shift of midline structures. There is mild decreased density in the periventricular white matter consistent with chronic ischemic white matter demyelination. There is no acute intra or extra-axial hemorrhage. The posterior fossa including the brainstem, fourth ventricle and cerebellar pontine angles appear no rmal. Intraorbital contents appear normal and symmetric. There is acute inflammatory change in the left maxillary sinus. The calvarium is intact. IMPRESSION: 1. No acute bleed or mass effect. 2. Moderate generalized atrophy and ischemic white matter change. 3. Acute inflammatory changes in the left maxillary sinus. 4. No significant interval change compared to the prior study [facility], Workstation: KEILA 03/30/2024 12:16 PM
--- NOTE | 2024-03-30 14:52 | P.DS ---
Providers Date of admission: 03/28/24 15:14 Expected date of discharge: 03/30/24 Attending physician: Martha Fernandez Consults: 03/28/24 15:12 Consult Physician Urgent Consulting Provider: Yakelin Bains Consult Reason/Comments: Normal pressure hydrocephalus Do you want consulting provider notified?: Already Contacted Primary care physician: Andrea Manzano [place] [facility] Course: Final diagnosis Nausea, vomiting, recurrent, possible acute gastritis Possible normal pressure hydrocephalus as noted on imaging and difficult to exclude, undergoing neurology workup although recommending transfer to [facility] for neurosurgery evaluation Leukocytosis, possibly reactive, resolved Change in mental status with metabolic encephalopathy, multifactorial likely due to hyponatremia and poor oral intake Diabetes mellitus, type II, [id number] History of hypertension History of hyperlipidemia Former smoker Obesity with a BMI 31.5 GI prophylaxis DVT prophylaxis Full code Discharge disposition Patient is being transferred in a stable condition with guarded prognosis to [facility] in [place] for neurology/neurosurgery evaluation. Patient will follow-up with in the outpatient setting upon discharge. Patient is being transferred in guarded prognosis and has been accepted to [facility] by Dr. Yonny sims and will place neurology/neurosurgery on consult. Total time taken is greater than 35 minutes. Hospital course This is a 73-year-old male who was recently admitted with generalized weakness, nausea/vomiting with headache underwent imaging including CT of the brain with concerns of hydrocephalus being closely monitored with neurology following. Patient was undergoing neck MRA and brain MRI which showed no significant findings although patient developed left-sided facial droop and left-sided weakness 30 minutes after coming back from MRI. Code stroke was activated and repeat CT was done with no acute findings. Neurology following and we have no neurosurgery available attempted to undergo LP although patient did receive heparin this morning and unable to perform for at least 8 hours. Our neurology recommending transfer for [facility] transfer for neurosurgery evaluation. Patient has been accepted at [facility] awaiting a bed. Please refer to other consultation note for further HPI. Left-sided weakness and facial droop has completely resolved. Family at bedside and patient and family are agreeable to the transfer. Currently no reports of chest pain, shortness of breath, or palpitations. Patient is afebrile. No reports of nausea or vomiting and patient is tolerating diet. Not much of an appetite and continues with intermittent nausea although no further vomiting at this time. Patient will be going to [facility] in [place] via EMS today. Guarded prognosis Physical exam: Gen: This is a 73-year-old male who is awake, alert and oriented x 2-3, ill- appearing, well-developed, elderly appearing, obese HEENT: Head is atraumatic, normocephalic. Pupils equal, round. Sclerae is anicteric. NECK: Supple. No JVD. No lymphadenopathy. No thyromegaly. LUNGS: Diminished breath sounds bilaterally otherwise clear to auscultation. No wheezes or rhonchi. No intercostal retractions. HEART: S1, S2 are muffled ABDOMEN: Soft. Obese bowel sounds are present. No masses. No tenderness. EXTREMITIES: No pedal edema. No calf tenderness. NEUROLOGICAL: Patient is awake, alert and oriented x3. Cranial nerves 2 through 12 are grossly intact. Diffusely weak Please refer to medication reconciliation sheet for a list of medications. The impression and plan of care has been dictated by Zainab Moore, Nurse Practitioner as directed. Dr. Jim MD I have performed a history and examination and MDM of this patient, discussed the same with the dictator, and agree with the dictator's assessment and plan as written ,documented as a scribe. Based on total visit time, I have performed more than 50% of the visit. Patient Condition at Discharge: Stable Plan - Discharge Summary Discharge Rx Participant: No New Discharge Prescriptions: New INSULIN ASPART (NovoLOG) [NovoLOG (formulary)] 0 unit SQ ACHS each Acetaminophen Tab [Tylenol] 650 mg PO Q6HR PRN tab PRN Reason: Fever And/ Or Pain Continue Gabapentin 600 mg PO TID Sildenafil Citrate 100 mg PO Q72H PRN PRN Reason: E.D Omeprazole [PriLOSEC] 20 mg PO HS Cyclobenzaprine [Flexeril] 10 mg PO HS PRN PRN Reason: Muscle Spasm Codeine Phosphate/Guaifenesin [Codeine Phosphate/Guaifenesin 10-100 mg/5 ml] 10 ml PO Q12H PRN PRN Reason: Cough Sodium Bicarbonate Tab 650 mg PO BID Ezetimibe [Zetia] 10 mg PO DAILY HYDROcodone/APAP 7.5-325MG [[place] 7.5-325] 1 tab PO QID PRN PRN Reason: Pain Atorvastatin [Lipitor] 40 mg PO HS Aspirin EC [Ecotrin Low Dose] 81 mg PO DAILY Discontinued Metoprolol Tartrate [Lopressor] 12.5 mg PO BID Losartan [Cozaar] 50 mg PO DAILY metFORMIN HCL [Glucophage] 850 mg PO TID-W/MEALS Discharge Medication List Aspirin EC [Ecotrin Low Dose] 81 mg PO DAILY 03/28/24 [History] Atorvastatin [Lipitor] 40 mg PO HS 03/28/24 [History] Codeine Phosphate/Guaifenesin [Codeine Phosphate/Guaifenesin 10-100 mg/5 ml] 10 ml PO Q12H PRN 03/28/24 [History] Cyclobenzaprine [Flexeril] 10 mg PO HS PRN 03/28/24 [History] Ezetimibe [Zetia] 10 mg PO DAILY 03/28/24 [History] Gabapentin 600 mg PO TID 03/28/24 [History] HYDROcodone/APAP 7.5-325MG [[place] 7.5-325] 1 tab PO QID PRN 03/28/24 [History] Omeprazole [PriLOSEC] 20 mg PO HS 03/28/24 [History] Sildenafil Citrate 100 mg PO Q72H PRN 03/28/24 [History] Sodium Bicarbonate Tab 650 mg PO BID 03/28/24 [History] Acetaminophen Tab [Tylenol] 650 mg PO Q6HR PRN tab 03/30/24 [Rx] INSULIN ASPART (NovoLOG) [NovoLOG (formulary)] 0 unit SQ ACHS each 03/30/24 [Rx] Follow up Appointment(s)/Referral(s): Andrea Manzano DO [Primary Care Provider] - 1-2 days Activity/Diet/Wound Care/Special Instructions: Patient has been accepted at [facility] Accepted by medicine Dr. Blancas with neurology/neurosurgery on consult Discharge Disposition: OTHER INSTITUTION NOT DEFINED
[2024-03-30 14:59] VITALS: BMI 31.5
[2024-03-30] MEDS: ASPIRIN 81 MG PO STA (15:16)
--- NOTE | 2024-03-30 16:10 | P.PN ---
Subjective Progress Note Date: 03/30/24 03/30/2024: Patient had a stroke code activated at 11:30 AM. At 11:05 AM, patient's daughter noticed that he was doing well, although sometimes talking loopy, talking something about buggy and the mules. It was however attributed to receiving Ativan 1 hour before MRI at 9:30 AM. He was able to speak, and was no other deficits. At around 11:30 AM patient had a similar episode as the one happened yesterday, in which he was not answering questions, could not work his phone his speech was off, and he developed left facial weakness. Stroke code was activated. His vitals was blood pressure 125/82, pulse rate 92, temperature 98.3, saturation 96% on room air. I came to see the patient, and his NIH stroke scale was 10 (0, 2, 0, 0, 2, 2, 1, 0, 0, 0, 0, 1, 1, 0, 1). Patient was sent to the CT scan, and by the time he came, his symptoms have mostly resolved, only with left sensory neglect. His visual field neglect had resolved. Patient even during this time, was trying to act funny, not answering questions straight at times. I spoke to Dr. Duval, neurointervention, and informed him about the results of MRI, MRA and overall clinical picture. He states that symptoms have been going on for a month, and had an event yesterday, and with normal MRI, doubt stroke/TIA. He was not sure if it was factitious disorder, or seizure or TIA. Normal pressure hydrocephalus usually does not produce fluctuating and focal symptoms as above. Patient not a candidate for tPA, as his symptoms have mostly resolved and symptoms of unclear cause. No vascular disease noted on the MRA of head and neck. We will check 2D echo. We will start full aspirin regimen. 03/29/2024: Patient was seen for follow-up. I was informed by the nurse at 11:28 AM, the patient is more disoriented this morning and family is concerned. He knew that he is in the hospital but not the city. He did not know the year but did not know the president. Daughter was concerned that his symptoms are getting worse. MRI has not been completed because of the holiday. EEG was ordered. When I came to see the patient, patient's two daughters and patient's significant other were present. They mentioned that patient continues to have problem with walking, not picking up his feet well. He slept well last night. He was fine in the morning but around 10 AM developed some speech difficulty, could not speak words or not making much words, with no coherent words. He is having moments of confusion. Later during the day, his cognitive functions improved. At present patient is speaking clearly, with no focal deficits. Speech is clear. He is oriented. Later he developed "major headache". Objective - Vital Signs Vital signs: Vital Signs Temp 98.3 F 03/30/24 11:28 Pulse 92 03/30/24 11:28 Resp 17 03/30/24 11:28 BP 125/82 03/30/24 11:28 Pulse Ox 96 03/30/24 11:28 FiO2 Intake & Output 03/29/24 03/30/24 03/30/24 18:59 06:59 18:59 Intake Total 640 590 Output Total 400 Balance 240 590 Intake: Oral 640 590 Output: Urine 400 Other: Voiding Method Toilet # Voids 2 - Exam On examination patient was alert and awake in no distress. He was able to name objects, repeat sentences. Earlier he was aphasic, but by the time I saw, the speech has resolved. On cranial examination pupils are equal, round and re active light, visual gil revealed left visual field neglect/deficit, homonymous type. He had left facial weakness, central type. Tongue protrudes to midline. On muscle testing, patient had left upward pronation. The strength was normal in the arms and legs. Sensory to touch was decreased on the left, with neglect on the left side. No ataxia for [id number] or [id number] testing. Tone and bulk of muscles normal. - Labs CBC & Chem 7: 03/30/24 05:59 03/30/24 05:57 Labs: Abnormal Lab Results - Last 24 Hours (Table) 03/29/24 03/29/24 03/29/24 Range/Units 11:26 14:51 14:51 WBC (4.50-10.00) X 10*3/uL Hct (39.6-50.0) % MPV (9.5-12.2) FL Acanthocytes (Spur) (None Seen) Sodium (137-145) mmol/L Chloride (98-107) mmol/L Glucose (74-99) mg/dL POC Glucose (mg/dL) (70-110) mg/dL Vitamin B12 >3600.0 H (200.0-944.0) pg/mL Urine Glucose (UA) Trace H (Negative) Urine Ketones 1+ H (Negative) Urine Opiates Screen Detected H (NotDetected) 03/29/24 03/29/24 03/30/24 Range/Units 17:05 20:23 05:57 WBC (4.50-10.00) X 10*3/uL Hct (39.6-50.0) % MPV (9.5-12.2) FL Acanthocytes (Spur) (None Seen) Sodium 128 L (137-145) mmol/L Chloride 95 L (98-107) mmol/L Glucose 120 H (74-99) mg/dL POC Glucose (mg/dL) 181 H 171 H (70-110) mg/dL Vitamin B12 (200.0-944.0) pg/mL Urine Glucose (UA) (Negative) Urine Ketones (Negative) Urine Opiates Screen (NotDetected) 03/30/24 03/30/24 03/30/24 Range/Units 05:59 07:29 11:23 WBC 10.05 H (4.50-10.00) X 10*3/uL Hct 39.4 L (39.6-50.0) % MPV 9.2 L (9.5-12.2) FL Acanthocytes (Spur) 2+ A (None Seen) Sodium (137-145) mmol/L Chloride (98-107) mmol/L Glucose (74-99) mg/dL POC Glucose (mg/dL) 156 H 139 H (70-110) mg/dL Vitamin B12 (200.0-944.0) pg/mL Urine Glucose (UA) (Negative) Urine Ketones (Negative) Urine Opiates Screen (NotDetected) Assessment and Plan Assessment: * 73-year-old male admitted with 4-week history of multiple neurological symptoms including dizziness, intermittent headache, gait imbalance, intermittent nausea vomiting. Exact cause is uncertain. CT head revealed possibility of hydrocephalus. Rule out NPH, or other causes. Rule out peripheral vestibular dysfunction. * Acute onset of focal symptoms after returning from MRI (today 03/30/2024) with left-sided deficits and speech difficulty, with NIH stroke scale of 10. Symptoms almost resolved after patient returned from repeat CT head. Rule out TIA or focal seizure or other causes. * Episode of mental confusion, speech difficulty lasted for a few hours and then resolved on 03/29/2024, rule out stroke/TIA. * Leukocytosis, unclear cause * Hyponatremia * Hypertension * Diabetes * Tobacco use * Hard of hearing Plan: * MRI of the brain with and without contrast, revealed mild dilation of the ventricular system, mildly progressed from 2015, correlate for hydrocephalus. Otherwise no evidence of intracranial mass, acute/subacute infarct or abnormal enhancement. Nonspecific white matter changes, likely related to small vessel ischemic disease. I personally reviewed MRI agree with the findings. No abnormal signal in the mesial temporal lobes on either side. * Carotid Doppler was limited secondary to tortuosity of the evaluated vessels. Left vertebral artery was not visualized. Limited evaluation of the right common carotid artery. Otherwise no hemodynamically significant stenosis. CTA was recommended. * MRA of the head and neck revealed no evidence for vertebral artery occlusion or dissection. Both vertebral arteries are visualized. Nonvisualization on ultrasound was likely due to technique. No evidence of intracranial aneurysm or significant stenosis. No evidence of significant stenosis at the carotid bifurcation. The carotid and vertebral arteries are patent. No aneurysm. I personally reviewed MRI agree with the findings. * Patient had another episode of strokelike symptoms today, but the symptoms have mostly resolved. Exact cause remains uncertain. * Increase aspirin to 325 mg daily. We will avoid Plavix/Brilinta at this time until LP completed. LP was considered to rule out encephalitis, and also for therapeutic large-volume tap for NPH but patient has received heparin 5000 units subcu at 8:19 AM today. Therefore we will hold off on lumbar puncture at least 12 hours. * Stat EEG 03/29/2024 was abnormal due to background slowing of mild to moderate degree. This is suggestive of generalized cerebral dysfunction as can be seen with toxic metabolic encephalopathy or related to diffuse structural brain a bnormality. Clinical correlation is recommended. No epileptiform activity was seen. * Stat 2D echo with bubble study rule out PFO. * B12 > 3600, folate 7.60 * Family wants patient to be transferred to [facility] system. Transfer was initiated and patient accepted to the [facility]. * Discussed with multiple family members in detail. Also discussed with primary team, nursing staff and neurointervention as mentioned above. Time with Patient: Greater than 30
[2024-03-30 17:25] LABS: Glucose,Whole Blood 179 mg/dL (70-110)
[2024-03-31] MEDS ORDERED: ASPIRIN 325 MG TAB PO SCH (09:00)
--- NOTE | 2024-04-03 10:31 | CDI ---
Documentation Clarification Form Date: 04/03/2024 10:13:32 AM From: Shelly Olivares Phone: Admit Date: 03/28/2024 03:14:00 PM Patient Name: Kash Lowry Visit Number: [id number] Discharge Date: 03/30/2024 07:14:00 PM ATTENTION: The Clinical Documentation Specialists (CDI) and [facility] Coding Staff appreciate your assistance in clarifying documentation. Please respond to the clarification below the line at the bottom and electronically sign. The CDI & [facility] Coding staff will review the response and follow-up if needed. Please note: Queries are made part of the Legal Health Record. If you have any questions, please contact the author of this message via ITS. Doctor/Provider: Yakelin Bains Your patient has the documented symptom of. nausea and vomiting , dizziness , gait imbalance in H/P on 03/28 Additional clarification regarding the etiology/cause of this symptom is requested. Patient history/risk factors: This is a 73-year-old male who presents to the emergency department stating that since February 18 he has had episodes ofnausea and vomitingand sometimes dry heaving. Patient states some days hedoes notvomithe can go 3 to 4 to 5 days withoutvomitingbut then he starts up again. Patient states last night he went out and got a root beer float had a couple sips and then began having the dry heaves , past medical history of multiple medical problems includingdiabetes,hypertension,hyperlipidemia Clinical Indicators: Radiology: ct brain on 03/28 -Hydrocephaluswhich appears more than level ofcerebral atrophy. Correlate clinically fornormal pressure hydrocephalusversusother etiologies. 2.No acuteintracranial hemorrhageor midline shift. On 03/30 CT head -No acutebleed ormasseffect. 2. Moderate generalizedatrophyandischemicwhite matter change. 3. Acuteinflammatorychanges in the left maxillary sinus. 4. No significant interval change compared to the priorstudy Vital Signs: on 03/28 -Pulse is 83, [id number]/70, and respirations 18. Other Clinical Indicators: On 03/28 neuro consult -73-year-old male admitted with 4-week history of multiple neurological symptoms includingdizziness, intermittentheadache, gaitimbalance, intermittentnausea vomiting. Exact cause is uncertain. CT headrevealed possibility ofhydrocephalus. Rule outNPH, or other causes. Rule out peripheral vestibulardysfunction. On 03/29 PN -Nausea, vomiting, recurrent,possibleacute gastritis. 2. Possiblenormal-pressure hydrocephalus. 3. Elevated WBC. 4. Change in mental status,metabolic encephalopathy ON 03/30 PN -73-year-old male admitted with 4-week history of multiple neurological symptoms includingdizziness, intermittentheadache, gaitimbalance, intermittentnausea vomiting. Exact cause is uncertain. CT headrevealed possibility ofhydrocephalus. Rule outNPH, or other causes. Rule out peripheral vestibulardysfunction. * [facility] with left-sided deficits and speech difficulty, withNIH stroke scaleof 10. Symptoms almost resolved after patient returned from [facility]. Rule out TIAor focalseizureor other causes. * Episode of mentalconfusion, speech difficulty lasted for a few hoursand then [id number]/25/2024,rule outstroke/TIA. Treatment: B12 > 3600, folate 7.60 * Family wants patient to be transferred to [facility] system. Transferwas initiated and patient accepted to the [facility]. : : Please provide additional clarification regarding the etiology/cause of the [insert symptom]: [ ] [Nausea, vomiting ,dizziness , intermittentheadache, gaitimbalance due to normal-pressure hydrocephalus [ ] nausea ,vomiting ,dizziness , intermittentheadache, gaitimbalance due to [Stroke] [ ] Other, please specify [ x ] Unable to determine. Needs further testing, but patient transferred to [facility]. (Template Last Revised: May 2020) Please see response above. Yakelin Bains MD [facility]
== END 2024-03-30 19:14 | disposition short-term general hospital (02) | DRG 56 ==
LOC: EC 11:16 → 5NMEDONC 15:14
PROVIDERS: ADMIT Hospitalist; ATTEND Hospitalist
DX: G91.2 (Idiopathic) normal pressure hydrocephalus (principal); G93.41 Metabolic encephalopathy; E87.1 Hypo-osmolality and hyponatremia; K29.00 Acute gastritis without bleeding; D72.829 Elevated white blood cell count, unspecified; E11.9 Type 2 diabetes mellitus without complications; I10 Essential (primary) hypertension; E78.5 Hyperlipidemia, unspecified; F17.200 Nicotine dependence, unspecified, uncomplicated; E66.9 Obesity, unspecified; H91.90 Unspecified hearing loss, unspecified ear; R29.810 Facial weakness; K21.9 Gastro-esophageal reflux disease without esophagitis; Z79.82 Long term (current) use of aspirin; Z79.899 Other long term (current) drug therapy; Z79.84 Long term (current) use of oral hypoglycemic drugs; Z91.041 Radiographic dye allergy status; Z91.09 Other allergy status, other than to drugs and biological substances; Z68.31 Body mass index [BMI] 31.0-31.9, adult
CPT/HCPCS: 36415; 70450; 70544; 70549; 70553; 71045; 80048; 80053; 80306; 81003; 82607; 82746; 83036; 83690; 83735; 85025; 87040; 87086; 93880; 95816; 96360; 96361; 99285

== ENCOUNTER 2024-04-28 13:55 | Observation (INO) | payer MEDICARE ==
--- NOTE | 2024-04-28 14:52 | ED ---
Skin/Abscess/FB HPI - General Chief complaint: Skin/Abscess/Foreign Body Stated complaint: rash Time Seen by Provider: 04/28/24 14:11 Source: patient, family, RN notes reviewed Mode of arrival: ambulatory Limitations: no limitations - History of Present Illness Initial comments: This is a 73-year-old male with history of DM, hypertension and hyperlipidemia presenting with for rash on left flank since this morning. Patient endorses increased number of life stressors in his life with associated burning of rash. mentions patient has been wandering around the house at night and being more forgetful than usual, stating this has become acute since a recent hunting trip. States patient was worked up for a numerous number of infectious diseases and brain MRI at [facility] with only hydrocephaly discovered. states patient has had increased urinary frequency and a persistent cough for several weeks. Endorses recent history of leukocytosis (17) and hyponatremia. Denies fever, chills, chest pain, dyspnea, abdominal pain, N/V/D, urinary symptoms. MD complaint: rash Onset/Timin -: days(s) Location: chest, back Quality: burning Consistency: constant Improves with: none Worsens with: none Associated symptoms: denies other symptoms Treatments Prior to Arrival: none - Related Data Home Medications Medication Instructions Recorded Confirmed Aspirin EC [Ecotrin Low Dose] 81 mg PO DAILY 03/28/24 04/28/24 Atorvastatin [Lipitor] 40 mg PO HS 03/28/24 04/28/24 Cyclobenzaprine [Flexeril] 10 mg PO HS PRN 03/28/24 04/28/24 Omeprazole [PriLOSEC] 20 mg PO HS 03/28/24 04/28/24 Sodium Bicarbonate Tab 650 mg PO BID 03/28/24 04/28/24 Ascorbic Acid [Vitamin C] 1,000 mg PO DAILY 04/28/24 04/28/24 Cyanocobalamin (Vitamin B-12) 1,000 mcg PO DAILY 04/28/24 04/28/24 [Vitamin B-12] Metoprolol Tartrate [Lopressor] 25 mg PO DAILY 04/28/24 04/28/24 Zinc Gluconate [Zinc] 50 mg PO DAILY 04/28/24 04/28/24 metFORMIN HCL [Glucophage] 850 mg PO TID-W/MEALS 04/28/24 04/28/24 Previous Rx's Medication Instructions Recorded Capsaicin Cream [Trixaicin Cream] 1 applic TOPICAL TID #60 gm 04/28/24 valACYclovir HCL [Valacyclovir] 1,000 mg PO TID #21 tab 04/28/24 Allergies Allergy/AdvReac Type Severity Reaction Status Date / Time Iodinated Contrast Media AdvReac BODY FELT Verified 04/28/24 16:56 [Iodinated Contrast Media - FROZEN Oral and] Review of Systems ROS Statement: Those systems with pertinent positive or pertinent negative responses have been documented in the HPI. ROS Other: All systems not noted in ROS Statement are negative. Past Medical History Past Medical History: Diabetes Mellitus, GERD/Reflux, Hearing Disorder / Deafness, Hyperlipidemia, Hypertension, Musculoskeletal Disorder Additional Past Medical History / Comment(s): RT UPPER ARM NT. PAIN IN NECK, LOWER BACK - HX OF PAIN INJ.. History of Any Multi-Drug Resistant Organisms: MRSA Date of last positivie culture/infection: 2006 MDRO Source:: RT WAISTLINE, TESTICLE Past Surgical History: Orthopedic Surgery Additional Past Surgical History / Comment(s): Repaired ruptured disks in neck. Right knee surgery. Bilat shoulder surgery. Past Anesthesia/Blood Transfusion Reactions: No Reported Reaction Past Psychological History: No Psychological Hx Reported Smoking Status: Former smoker Past Alcohol Use History: Rare Past Drug Use History: None Reported - Past Family History Father Family Medical History: Cancer Mother Family Medical History: Cancer General Exam Limitations: no limitations General appearance: alert, in no apparent distress Head exam: Present: atraumatic, normocephalic, normal inspection Eye exam: Present: normal appearance, PERRL, EOMI. Absent: scleral icterus, conjunctival injection, periorbital swelling ENT exam: Present: normal exam, mucous membranes moist Neck exam: Present: normal inspection. Absent: tenderness, meningismus, lymphadenopathy Respiratory exam: Present: normal lung sounds bilaterally. Absent: respiratory distress, wheezes, rales, rhonchi, stridor Cardiovascular Exam: Present: regular rate, normal rhythm, normal heart sounds. Absent: systolic murmur, diastolic murmur, rubs, gallop, clicks GI/Abdominal exam: Present: soft, normal bowel sounds. Absent: distended, tenderness, guarding, rebound, rigid Extremities exam: Present: normal inspection, full ROM, normal capillary refill. Absent: tenderness, pedal edema, joint swelling, calf tenderness Back exam: Present: normal inspection Neurological exam: Present: alert, oriented X3, CN II-XII intact Psychiatric exam: Present: normal affect, normal mood Skin exam: Present: warm, dry, intact, normal color, rash (Erythematous maculopapular rash in linear pattern along left T4 dermatome extending from vertebrae around left flank to left sternum across nipple) Course Vital Signs 04/28/24 04/28/24 04/28/24 13:56 17:00 19:00 Temperature 97.4 F L Pulse Rate 67 82 93 Respiratory 20 20 20 Rate Blood Pressure 106/79 117/85 106/70 O2 Sat by Pulse 97 96 96 Oximetry Medical Decision Making - Medical Decision Making Was pt. sent in by a medical professional or institution (Dr. PA, BROKE BEATER MACHINE OPERATOR, urgent care, hospital, or [facility]...) When possible be specific @ -No Did you speak to anyone other than the patient for history (EMS, parent, family, police, friend...)? What history was obtained from this source @ -Patient's provided majority of HPI Did you review nursing and triage notes (agree or disagree)? Why? @ -I reviewed and agree with nursing and triage notes Were old charts reviewed (outside hosp., previous admission, EMS record, old EKG, old radiological studies, urgent care reports/EKG's, [facility] records)? Report findings @ -No old charts were reviewed Differential Diagnosis (chest pain, altered mental status, abdominal pain women, abdominal pain men, vaginal bleeding, weakness, fever, dyspnea, syncope, headache, dizziness, GI bleed, back pain, seizure, CVA, palpatations, mental health, musculoskeletal)? @ -Shingles, eczema, psoriasis, SJS, intertrigo, this is not an exhaustive list Differential Altered Mental Status: Hypoglycemia, DKA, hypercapnia, ETOH, overdose, CO poisoning, trauma, myxedema coma, HTN encephalopathy, infection, encephalitis, psychosis, intercranial hemorrhage, hepatic encephalopathy, meningitis, CVA, this is not meant to be an all-inclusive list EKG interpreted by me (3pts min.). @ -Sinus rhythm with first-degree AV block and RBBB. Ventricular rate 78 bpm, IMAN 216 ms, QRS duration 158 ms, QTc 448 ms. X-rays interpreted by me (1pt min.). @ -CXR shows no acute cardiopulmonary process. CT interpreted by me (1pt min.). @ -None done U/S interpreted by me (1pt. min.). @ -None done What testing was considered but not performed or refused? (CT, X-rays, U/S, labs)? Why? @ -None What meds were considered but not given or refused? Why? @ -None Did you discuss the management of the patient with other professionals (professionals i.e. Dr., PA, BROKE BEATER MACHINE OPERATOR, lab, RT, psych nurse, social work professor, deflector operator, teacher, county records management officer, senior case manager)? Give summary @ -And spoke to Lazaro oJnes of [facility] who agreed to admission of patient. Was smoking cessation discussed for >3mins.? @ -No Was critical care preformed (if so, how long)? @ -No Were there social determinants of health that impacted care today? How? (Homelessness, low income, unemployed, alcoholism, drug addiction, transportation, low edu. Level, literacy, decrease access to med. care, shelter, rehab)? @ -No Was there de-escalation of care discussed even if they declined (Discuss DNR or withdrawal of care, Hospice)? DNR status @ -No What co-morbidities impacted this encounter? (DM, HTN, Smoking, COPD, CAD, Cancer, CVA, ARF, Chemo, Hep., AIDS, mental health diagnosis, sleep apnea, morbid obesity)? @ -DM Was patient admitted / discharged? Hospital course, mention meds given and route, prescriptions, significant lab abnormalities, going to OR and other pertinent info. @ -Lab work shows hyponatremia (125) and hyperglycemia (168). Cepheid test negative. UA shows ketonuria without indication of UTI. CXR shows no acute cardiopulmonary process. Patient provided maintenance normal saline. And spoke to Lazaro Jones of [facility] who agreed to admission of patient. Discussed patient with Dr. Palma. Undiagnosed new problem with uncertain prognosis? @ -No Drug Therapy requiring intensive monitoring for toxicity (Heparin, Nitro, Insulin, Cardizem)? @ -No Were any procedures done? @ -No Diagnosis/symptom? @ -Hyponatremia, shingles Acute, or Chronic, or Acute on Chronic? @ -Acute Uncomplicated (without systemic symptoms) or Complicated (systemic symptoms)? @ -Uncomplicated Side effects of treatment? @ -No Exacerbation, Progression, or Severe Exacerbation? @ -No Poses a threat to life or bodily function? How? (Chest pain, [place], HI, pneumonia, PE, COPD, DKA, ARF, appy, cholecystitis, CVA, Diverticulitis, Homicidal, Suicidal, threat to staff... and all critical care pts) @ -Hyponatremia - Lab Data Result diagrams: 04/28/24 14:35 04/28/24 17:38 Lab Results 04/28/24 04/28/24 04/28/24 Range/Units 14:35 14:35 14:35 WBC 10.0 (3.8-10.6) k/uL RBC 4.29 L (4.30-5.90) m/uL Hgb 13.5 (13.0-17.5) gm/dL Hct 37.9 L (39.0-53.0) % MCV 88.4 (80.0-100.0) fL MCH 31.4 (25.0-35.0) pg MCHC 35.5 (31.0-37.0) g/dL RDW 14.0 (11.5-15.5) % Plt Count 240 (150-450) k/uL MPV 6.9 Neutrophils % (Manual) 82 % Band Neuts % (Manual) 3 % Lymphocytes % (Manual) 10 % Monocytes % (Manual) 5 % Neutrophils # (Manual) 8.50 H (1.3-7.7) k/uL Lymphocytes # (Manual) 1.00 (1.0-4.8) k/uL Monocytes # (Manual) 0.50 (0-1.0) k/uL Nucleated RBCs 0 (0-0) /100 WBC Manual Slide Review Performed Large Platelets Present Polychromasia Present Sodium 125 L (137-145) mmol/L Potassium 3.6 (3.5-5.1) mmol/L Chloride 90 L (98-107) mmol/L Carbon Dioxide 24 (22-30) mmol/L Anion Gap 11 mmol/L BUN 8 L (9-20) mg/dL Creatinine 0.69 (0.66-1.25) mg/dL Est GFR (CKD-EPI)AfAm >90 (>60 ml/min/1.73 sqM) Est GFR (CKD-EPI)NonAf >90 (>60 ml/min/1.73 sqM) Glucose 168 H (74-99) mg/dL Calcium 9.1 (8.4-10.2) mg/dL Total Bilirubin 1.1 (0.2-1.3) mg/dL AST 25 (17-59) U/L ALT 21 (4-49) U/L Alkaline Phosphatase 62 (38-126) U/L Total Protein 7.0 (6.3-8.2) g/dL Albumin 4.0 (3.5-5.0) g/dL Urine Color Light Yellow Urine Appearance Clear (Clear) Urine pH 6.0 (5.0-8.0) Ur Specific Dunning 1.009 (1.001-1.035) Urine Protein Trace H (Negative) Urine Glucose (UA) Negative (Negative) Urine Ketones 2+ H (Negative) Urine Blood Negative (Negative) Urine Nitrite Negative (Negative) Urine Bilirubin Negative (Negative) Urine Urobilinogen <2.0 (<2.0) mg/dL Ur Leukocyte Esterase Negative (Negative) Influenza Type A (PCR) (Not Detectd) Influenza Type B (PCR) (Not Detectd) RSV (PCR) (Not Detectd) SARS-CoV-2 (PCR) (Not Detectd) 04/28/24 Range/Units 14:35 WBC (3.8-10.6) k/uL RBC (4.30-5.90) m/uL Hgb (13.0-17.5) gm/dL Hct (39.0-53.0) % MCV (80.0-100.0) fL MCH (25.0-35.0) pg MCHC (31.0-37.0) g/dL RDW (11.5-15.5) % Plt Count (150-450) k/uL MPV Neutrophils % (Manual) % Band Neuts % (Manual) % Lymphocytes % (Manual) % Monocytes % (Manual) % Neutrophils # (Manual) (1.3-7.7) k/uL Lymphocytes # (Manual) (1.0-4.8) k/uL Monocytes # (Manual) (0-1.0) k/uL Nucleated RBCs (0-0) /100 WBC Manual Slide Review Large Platelets Polychromasia Sodium (137-145) mmol/L Potassium (3.5-5.1) mmol/L Chloride (98-107) mmol/L Carbon Dioxide (22-30) mmol/L Anion Gap mmol/L BUN (9-20) mg/dL Creatinine (0.66-1.25) mg/dL Est GFR (CKD-EPI)AfAm (>60 ml/min/1.73 sqM) Est GFR (CKD-EPI)NonAf (>60 ml/min/1.73 sqM) Glucose (74-99) mg/dL Calcium (8.4-10.2) mg/dL Total Bilirubin (0.2-1.3) mg/dL AST (17-59) U/L ALT (4-49) U/L Alkaline Phosphatase (38-126) U/L Total Protein (6.3-8.2) g/dL Albumin (3.5-5.0) g/dL Urine Color Urine Appearance (Clear) Urine pH (5.0-8.0) Ur Specific Dunning (1.001-1.035) Urine Protein (Negative) Urine Glucose (UA) (Negative) Urine Ketones (Negative) Urine Blood (Negative) Urine Nitrite (Negative) Urine Bilirubin (Negative) Urine Urobilinogen (<2.0) mg/dL Ur Leukocyte Esterase (Negative) Influenza Type A (PCR) Not Detected (Not Detectd) Influenza Type B (PCR) Not Detected (Not Detectd) RSV (PCR) Not Detected (Not Detectd) SARS-CoV-2 (PCR) Not Detected (Not Detectd) Disposition Clinical Impression: Shingles, Hyponatremia Disposition: ADMITTED IP TO THIS [facility] Condition: Good Is patient prescribed a controlled substance at d/c from ED?: No Time of Disposition: 16:15 Decision Date: 04/28/24 Decision Time: 16:15
[2024-04-28 15:01] LABS: ALT 21 U/L (4-49); AST 25 U/L (17-59); African American GFR (CKD) >90 (>60 ml/min/1.73 sqM); Alkaline Phosphatase 62 U/L (38-126); Anion Gap 11 mmol/L; Blood Urea Nitrogen 8 mg/dL (9-20); Calcium 9.1 mg/dL (8.4-10.2); Carbon Dioxide 24 mmol/L (22-30); Chloride 90 mmol/L (98-107); Glucose 168 mg/dL (74-99); Non-African American GFR(CKD) >90 (>60 ml/min/1.73 sqM); Potassium 3.6 mmol/L (3.5-5.1); Sodium 125 mmol/L (137-145); Total Bilirubin 1.1 mg/dL (0.2-1.3)
--- NOTE | 2024-04-28 15:02 | XR ---
EXAMINATION TYPE: XR chest 2V DATE OF EXAM: 04/28/2024 2:56 PM COMPARISON: 03/29/2024 CLINICAL INDICATION: Male, 73 years old with history of Cough, TECHNIQUE: XR chest 2V view(s) obtained. FINDINGS: The heart size is normal. The pulmonary vasculature is normal. The lungs are clear. IMPRESSION: 1. No acute pulmonary process. [facility], , 04/28/2024 3:00 PM
[2024-04-28 15:04] LABS: HCT 37.9 % (39.0-53.0); HGB 13.5 gm/dL (13.0-17.5); MCH 31.4 pg (25.0-35.0); MCHC 35.5 g/dL (31.0-37.0); MCV 88.4 fL (80.0-100.0); Mean Platelet Volume 6.9; Platelet Count 240 k/uL (150-450); RBC 4.29 m/uL (4.30-5.90)
[2024-04-28 15:25] LABS: Influenza A Not Detected (Not Detectd); Influenza B Not Detected (Not Detectd); RSV Not Detected (Not Detectd)
[2024-04-28 16:14] LABS: Band Neutrophils % 3 %; Neutrophils % (M) 82 %; Nucleated Red Blood Cells 0 /100 WBC (0-0); Total Cells Counted 100
[2024-04-28 16:15] LABS: Large Platelets Present
[2024-04-28 16:16] LABS: Polychromasia Present
[2024-04-28] MEDS: SODIUM CHLORIDE 0.9% 1,000 ML IV STA (16:35)
[2024-04-28] MEDS ORDERED: NALOXONE 0.4 MG/ML 1 ML VIAL IV PRN (17:26)
[2024-04-28] MEDS: SODIUM CHLORIDE 0.9% 1,000 ML IV SCH (17:35)
[2024-04-28 17:42] LABS: Appearance,Urine Clear (Clear); Bilirubin,Urine Negative (Negative); Blood,Urine Negative (Negative); Color,Urine Light Yellow; Glucose,Urine (UA) Negative (Negative); Ketones,Urine 2+ (Negative); Leukocyte Esterase,Urine Negative (Negative); Nitrite,Urine Negative (Negative); Protein,Urine Trace (Negative); Specific Gravity,Urine 1.009 (1.001-1.035); Urobilinogen,Urine <2.0 mg/dL (<2.0)
[2024-04-28 18:01] LABS: African American GFR (CKD) >90 (>60 ml/min/1.73 sqM); Anion Gap 10 mmol/L; Blood Urea Nitrogen 8 mg/dL (9-20); Calcium 8.8 mg/dL (8.4-10.2); Carbon Dioxide 25 mmol/L (22-30); Chloride 89 mmol/L (98-107); Glucose 132 mg/dL (74-99); Non-African American GFR(CKD) >90 (>60 ml/min/1.73 sqM); Potassium 3.4 mmol/L (3.5-5.1); Sodium 124 mmol/L (137-145)
[2024-04-28] MEDS: SODIUM BICARBONATE TAB 650 MG TAB PO SCH (20:22)
[2024-04-28] MEDS: PANTOPRAZOLE 40 MG TABLET PO SCH (20:22)
[2024-04-28] MEDS: ATORVASTATIN 40 MG TAB PO SCH (20:22)
[2024-04-28 21:25] LABS: African American GFR (CKD) >90 (>60 ml/min/1.73 sqM); Anion Gap 12 mmol/L; Blood Urea Nitrogen 9 mg/dL (9-20); Calcium 9.2 mg/dL (8.4-10.2); Carbon Dioxide 27 mmol/L (22-30); Chloride 88 mmol/L (98-107); Glucose 134 mg/dL (74-99); Non-African American GFR(CKD) >90 (>60 ml/min/1.73 sqM); Potassium 3.5 mmol/L (3.5-5.1); Sodium 127 mmol/L (137-145)
[2024-04-29 00:51] LABS: African American GFR (CKD) >90 (>60 ml/min/1.73 sqM); Anion Gap 10 mmol/L; Blood Urea Nitrogen 8 mg/dL (9-20); Carbon Dioxide 27 mmol/L (22-30); Chloride 89 mmol/L (98-107); Glucose 115 mg/dL (74-99); Non-African American GFR(CKD) >90 (>60 ml/min/1.73 sqM); Potassium 3.6 mmol/L (3.5-5.1); Sodium 126 mmol/L (137-145)
[2024-04-29] MEDS: metFORMIN 850 MG TAB PO SCH (06:13)
[2024-04-29] MEDS: ZINC SULFATE 220 MG CAP PO SCH (08:16)
[2024-04-29] MEDS: ASPIRIN 81 MG PO SCH (08:16)
[2024-04-29] MEDS: METOPROLOL TARTRATE 25 MG TAB PO SCH (08:17)
[2024-04-29 10:56] LABS: African American GFR (CKD) >90 (>60 ml/min/1.73 sqM); Anion Gap 13 mmol/L; Blood Urea Nitrogen 7 mg/dL (9-20); Calcium 8.7 mg/dL (8.4-10.2); Carbon Dioxide 25 mmol/L (22-30); Chloride 89 mmol/L (98-107); Glucose 160 mg/dL (74-99); Non-African American GFR(CKD) >90 (>60 ml/min/1.73 sqM); Potassium 3.3 mmol/L (3.5-5.1); Sodium 127 mmol/L (137-145)
[2024-04-29] MEDS ORDERED: Potassium Replacement Protocol 1 EACH MISC MISCELLANE PRN (11:09)
[2024-04-29] MEDS: POTASSIUM CHLORIDE ER 20 MEQ TAB.ER PO SCH (11:28)
[2024-04-29] MEDS: valACYclovir HCL 1,000 MG TABLET PO SCH (12:19)
[2024-04-29] MEDS ORDERED: DEXTROSE 50% SYRINGE 50 ML IVP PRN ×2 (14:25)
--- NOTE | 2024-04-29 14:26 | P.HPIM ---
History of Present Illness H&P Date: 04/29/24 History of present illness: 73-year-old male patient with past medical history significant for diabetes mellitus, hypertension, hyperlipidemia who presented to ER with left flank pain and rash for 1 day. Patient stated that he was having burning sensation, 8 x 10 pain in the left flank and a rash. Patient denied any fever or chills. Patient also was reported to be confused and more forgetful than usual by . Patient recently had a hunting trip. Patient also had history of chronic low sodium, has been on sodium tablets, had extensive workup done in the past. Patient was also reported to have increased urinary frequency and persistent cough for many weeks. Patient is afebrile, heart rate 98, respiratory rate 17, blood pressure 107/64, saturating 95% on room air. WBC 10.0, hemoglobin 13.5, platelet 240. Sodium on presentation was 125, now improved to 127. Potassium 3.3, BUN 7, creatinine 0.62. UA negative. Viral panel negative. Chest x-ray negative for acute process. Assessment and plan: Left back shingles: Pain control Valtrex ID consult Hyponatremia Chronic hyponatremia, on sodium tablets at home Currently hypovolemic Continue IV fluids, continue salt tablets Monitor sodium Check urine sodium, urine osmolality. Diabetes mellitus: Continue metformin Sliding-scale insulin DVT prophylaxis Lovenox s/c Monitor vital signs and labs Labs and medication were reviewed. Continue same treatment. Further recommendations as per clinical course of the patient PHYSICAL EXAMINATION: GENERAL: The patient is A&O x3, NAD HEENT: EOMI, Sclerae anicteric, Moist Mucous membranes Neck: Supple, Non tender, No JVD PULMONARY: Equal breath souds B/L, No wheezing, No crackles. CARDIOVASCULAR: S1, S2 present. No murmurs, rubs, or gallops. ABDOMEN: Soft, nontender, nondistended, normoactive bowel sounds. No guarding or rebound tenderness. MUSCULOSKELETAL: No edema, No cyanosis. No clubbing. Normal ROM. Intact peripheral pulses. NEUROLOGICAL: CN 2-12 grossly intact. No FND Skin: Left back rash, radiating anteriorly to lower chest. REVIEW OF SYSTEMS: CONSTITUTIONAL: No fever, no malaise, no fatigue. c/o of rash. HEENT: No recent visual problems or hearing problems. Denied any sore throat. CARDIOVASCULAR: No chest pain, orthopnea, PND, no palpitations, no syncope. PULMONARY: No shortness of breath, no cough, no hemoptysis. GASTROINTESTINAL: No diarrhea, no nausea, no vomiting, no abdominal pain. NEUROLOGICAL: No headaches, no weakness, no numbness. HEMATOLOGICAL: Denies any bleeding or petechiae. GENITOURINARY: Denies any burning micturition, frequency, or urgency. MUSCULOSKELETAL/RHEUMATOLOGICAL: Denies any joint pain, swelling, or any muscle pain. ENDOCRINE: Denies any polyuria or polydipsia. The rest of the 14-point review of systems is negative. Dictation was produced using [employer] software. please excuse any grammatical, word or spelling errors. Past Medical History Past Medical History: Diabetes Mellitus, GERD/Reflux, Hearing Disorder / Deafness, Hyperlipidemia, Hypertension, Musculoskeletal Disorder Additional Past Medical History / Comment(s): RT UPPER ARM NT. PAIN IN NECK, LOWER BACK - HX OF PAIN INJ.. History of Any Multi-Drug Resistant Organisms: MRSA Date of last positivie culture/infection: 2006 MDRO Source:: RT WAISTLINE, TESTICLE Past Surgical History: Orthopedic Surgery Additional Past Surgical History / Comment(s): Repaired ruptured disks in neck- fusion. Right knee replacement surgery. Bilat shoulder rotator cuff surgery. Past Anesthesia/Blood Transfusion Reactions: No Reported Reaction Past Psychological History: No Psychological Hx Reported Smoking Status: Current some day smoker Past Alcohol Use History: Rare Additional Past Alcohol Use History / Comment(s): SMOKED [id number], 2 PPD; NOW OCC CIGAR Past Drug Use History: None Reported - Past Family History Father Family Medical History: Cancer Mother Family Medical History: Cancer Medications and Allergies Home Medications Medication Instructions Recorded Confirmed Type Aspirin EC [Ecotrin Low Dose] 81 mg PO DAILY 03/28/24 04/28/24 History Atorvastatin [Lipitor] 40 mg PO HS 03/28/24 04/28/24 History Cyclobenzaprine [Flexeril] 10 mg PO HS PRN 03/28/24 04/28/24 History Omeprazole [PriLOSEC] 20 mg PO HS 03/28/24 04/28/24 History Sodium Bicarbonate Tab 650 mg PO BID 03/28/24 04/28/24 History Ascorbic Acid [Vitamin C] 1,000 mg PO DAILY 04/28/24 04/28/24 History Capsaicin Cream [Trixaicin Cream] 1 applic TOPICAL TID #60 gm 04/28/24 Rx Cyanocobalamin (Vitamin B-12) 1,000 mcg PO DAILY 04/28/24 04/28/24 History [Vitamin B-12] Metoprolol Tartrate [Lopressor] 25 mg PO DAILY 04/28/24 04/28/24 History Zinc Gluconate [Zinc] 50 mg PO DAILY 04/28/24 04/28/24 History metFORMIN HCL [Glucophage] 850 mg PO TID-W/MEALS 04/28/24 04/28/24 History valACYclovir HCL [Valacyclovir] 1,000 mg PO TID #21 tab 04/28/24 Rx Allergies Allergy/AdvReac Type Severity Reaction Status Date / Time Iodinated Contrast Media AdvReac BODY FELT Verified 04/28/24 16:56 [Iodinated Contrast Media - FROZEN Oral and] Physical Exam Vitals: Vital Signs Temp Pulse Pulse Resp BP BP Pulse Ox 04/29/24 07:00 98.4 F 98 17 107/64 95 04/29/24 01:46 98.5 F 105 H 18 129/77 96 04/28/24 21:45 98.1 F 112 H 18 124/82 97 04/28/24 21:39 96 18 138/52 96 04/28/24 19:00 93 20 106/70 96 04/28/24 17:00 82 20 117/85 96 Intake and Output 04/28/24 04/29/24 04/29/24 22:59 06:59 14:59 Other: Voiding Method Toilet # Voids 1 2 Weight 90.265 kg Results CBC & Chem 7: 04/28/24 14:35 04/29/24 10:23 Labs: Abnormal Lab Results - Last 24 Hours (Table) 04/28/24 04/28/24 04/28/24 Range/Units 14:35 14:35 14:35 RBC 4.29 L (4.30-5.90) m/uL Hct 37.9 L (39.0-53.0) % Neutrophils # (Manual) 8.50 H (1.3-7.7) k/uL Sodium 125 L (137-145) mmol/L Potassium (3.5-5.1) mmol/L Chloride 90 L (98-107) mmol/L BUN 8 L (9-20) mg/dL Creatinine (0.66-1.25) mg/dL Glucose 168 H (74-99) mg/dL Urine Protein Trace H (Negative) Urine Ketones 2+ H (Negative) 04/28/24 04/28/24 04/28/24 Range/Units 17:38 20:10 23:51 RBC (4.30-5.90) m/uL Hct (39.0-53.0) % Neutrophils # (Manual) (1.3-7.7) k/uL Sodium 124 L 127 L 126 L (137-145) mmol/L Potassium 3.4 L (3.5-5.1) mmol/L Chloride 89 L 88 L 89 L (98-107) mmol/L BUN 8 L 8 L (9-20) mg/dL Creatinine 0.65 L (0.66-1.25) mg/dL Glucose 132 H 134 H 115 H (74-99) mg/dL Urine Protein (Negative) Urine Ketones (Negative) 04/29/24 Range/Units 10:23 RBC (4.30-5.90) m/uL Hct (39.0-53.0) % Neutrophils # (Manual) (1.3-7.7) k/uL Sodium 127 L (137-145) mmol/L Potassium 3.3 L (3.5-5.1) mmol/L Chloride 89 L (98-107) mmol/L BUN 7 L (9-20) mg/dL Creatinine 0.62 L (0.66-1.25) mg/dL Glucose 160 H (74-99) mg/dL Urine Protein (Negative) Urine Ketones (Negative)
[2024-04-29 17:17] LABS: Glucose,Whole Blood 145 mg/dL (70-110)
[2024-04-29] MEDS: INSULIN ASPART (NovoLOG) 100 UNIT/ML VIAL SQ SCH (17:18)
[2024-04-29 20:31] LABS: Glucose,Whole Blood 186 mg/dL (70-110)
[2024-04-29] MEDS: CYCLOBENZAPRINE 10 MG TAB PO PRN (21:41)
[2024-04-29] MEDS: SODIUM CHLORIDE TAB 1 GM TAB PO SCH (21:42)
[2024-04-30 02:33] VITALS: RESP 16
[2024-04-30 05:45] LABS: Glucose,Whole Blood 165 mg/dL (70-110)
[2024-04-30 07:25] VITALS: BP 131/80; PULSE 86; TEMP 97.7
--- NOTE | 2024-04-30 09:03 | P.CONS ---
History of Present Illness - Reason for Consult Consult date: 04/29/24 Shingles Requesting physician: Martínez Paige - Chief Complaint Left side of the trunk rash x 1 day - History of Present Illness Patient is a 73-year-old male with a past medical history significant for diabetes mellitus reflux hypertension hyperlipidemia presenting to the hospital for evaluation of rash that has been noticed to the left mid chest area started the morning of presentation to hospital patient has been complaining of burning pain to the area of the rash of moderate intensity and is radiating across his chest to the front patient has significant itching to the rash over a rash on either part of the body denies having any headache or URI symptoms no chest pain shortness of breath or cough no nausea no vomiting no abdominal pain no diarrhea on presentation to the hospital patient was afebrile no fever have been recorded subsequently patient was mildly tachycardic but not hypotensive or hypoxic no need for supplemental oxygen white count is 10,000 creatinine 0.62 liver isms are normal urine has been negative influenza RSV COVID testing was negative patient did have a chest x-ray no acute pulmonary process patient has been diagnosed with a shingles infection disease was consulted for further management Review of Systems GENERAL DESCRIPTION: Elderly male up in the chair, no distress. No tachypnea or accessory muscle of respiration use. HEENT: Shows Pallor , no scleral icterus. Oral mucous membrane is dry. NECK: Trachea central, no thyromegaly. LUNGS: Unlabored breathing. Clear to auscultation anteriorly. No wheeze or crackle. HEART: S1, S2, regular rate and rhythm. No loud murmur ABDOMEN: Soft, no tenderness , guarding or rigidity, no organomegaly EXTREMITIES: No edema of feet. SKIN: Patient did have a vesicular rash involving the T4 dermatome on the left side without evidence of secondary cellulitis NEUROLOGICAL: The patient is awake, alert, oriented x3, mood and affect normal. Past Medical History Past Medical History: Diabetes Mellitus, GERD/Reflux, Hearing Disorder / Deafness, Hyperlipidemia, Hypertension, Musculoskeletal Disorder Additional Past Medical History / Comment(s): RT UPPER ARM NT. PAIN IN NECK, LOWER BACK - HX OF PAIN INJ.. History of Any Multi-Drug Resistant Organisms: MRSA Year Discovered:: 2006 MDRO Source:: RT WAISTLINE, TESTICLE Past Surgical History: Orthopedic Surgery Additional Past Surgical History / Comment(s): Repaired ruptured disks in neck- fusion. Right knee replacement surgery. Bilat shoulder rotator cuff surgery. Past Anesthesia/Blood Transfusion Reactions: No Reported Reaction Past Psychological History: No Psychological Hx Reported Smoking Status: Current some day smoker Past Alcohol Use History: Rare Additional Past Alcohol Use History / Comment(s): SMOKED [id number], 2 PPD; NOW OCC CIGAR Past Drug Use History: None Reported - Past Family History Father Family Medical History: Cancer Mother Family Medical History: Cancer Medications and Allergies Home Medications Medication Instructions Recorded Confirmed Type Aspirin EC [Ecotrin Low Dose] 81 mg PO DAILY 03/28/24 04/28/24 History Atorvastatin [Lipitor] 40 mg PO HS 03/28/24 04/28/24 History Cyclobenzaprine [Flexeril] 10 mg PO HS PRN 03/28/24 04/28/24 History Omeprazole [PriLOSEC] 20 mg PO HS 03/28/24 04/28/24 History Sodium Bicarbonate Tab 650 mg PO BID 03/28/24 04/28/24 History Ascorbic Acid [Vitamin C] 1,000 mg PO DAILY 04/28/24 04/28/24 History Capsaicin Cream [Trixaicin Cream] 1 applic TOPICAL TID #60 gm 04/28/24 Rx Cyanocobalamin (Vitamin B-12) 1,000 mcg PO DAILY 04/28/24 04/28/24 History [Vitamin B-12] Metoprolol Tartrate [Lopressor] 25 mg PO DAILY 04/28/24 04/28/24 History Zinc Gluconate [Zinc] 50 mg PO DAILY 04/28/24 04/28/24 History metFORMIN HCL [Glucophage] 850 mg PO TID-W/MEALS 04/28/24 04/28/24 History valACYclovir HCL [Valacyclovir] 1,000 mg PO TID #21 tab 04/28/24 Rx HYDROcodone/APAP 5-325MG [[place] 1 each PO Q6HR PRN #12 tab 04/30/24 Rx 5-325] valACYclovir HCL [Valtrex] 1,000 mg PO TID 7 Days #21 tab 04/30/24 Rx Allergies Allergy/AdvReac Type Severity Reaction Status Date / Time Iodinated Contrast Media AdvReac BODY FELT Verified 04/28/24 16:56 [Iodinated Contrast Media - FROZEN Oral and] Physical Exam Vitals: Vital Signs Temp Pulse Pulse Resp BP BP Pulse Ox 04/29/24 07:00 98.4 F 98 17 107/64 95 04/29/24 01:46 98.5 F 105 H 18 129/77 96 04/28/24 21:45 98.1 F 112 H 18 124/82 97 04/28/24 21:39 96 18 138/52 96 04/28/24 19:00 93 20 106/70 96 04/28/24 17:00 82 20 117/85 96 04/28/24 13:56 97.4 F L 67 20 106/79 97 Intake and Output 04/28/24 04/29/24 04/29/24 22:59 06:59 14:59 Other: Voiding Method Toilet # Voids 1 2 Weight 90.265 kg Results CBC & Chem 7: 04/28/24 14:35 04/30/24 00:25 Labs: Abnormal Lab Results - Last 24 Hours (Table) 04/28/24 04/28/24 04/28/24 Range/Units 14:35 14:35 14:35 RBC 4.29 L (4.30-5.90) m/uL Hct 37.9 L (39.0-53.0) % Neutrophils # (Manual) 8.50 H (1.3-7.7) k/uL Sodium 125 L (137-145) mmol/L Potassium (3.5-5.1) mmol/L Chloride 90 L (98-107) mmol/L BUN 8 L (9-20) mg/dL Creatinine (0.66-1.25) mg/dL Glucose 168 H (74-99) mg/dL Urine Protein Trace H (Negative) Urine Ketones 2+ H (Negative) 04/28/24 04/28/24 04/28/24 Range/Units 17:38 20:10 23:51 RBC (4.30-5.90) m/uL Hct (39.0-53.0) % Neutrophils # (Manual) (1.3-7.7) k/uL Sodium 124 L 127 L 126 L (137-145) mmol/L Potassium 3.4 L (3.5-5.1) mmol/L Chloride 89 L 88 L 89 L (98-107) mmol/L BUN 8 L 8 L (9-20) mg/dL Creatinine 0.65 L (0.66-1.25) mg/dL Glucose 132 H 134 H 115 H (74-99) mg/dL Urine Protein (Negative) Urine Ketones (Negative) 04/29/24 Range/Units 10:23 RBC (4.30-5.90) m/uL Hct (39.0-53.0) % Neutrophils # (Manual) (1.3-7.7) k/uL Sodium 127 L (137-145) mmol/L Potassium 3.3 L (3.5-5.1) mmol/L Chloride 89 L (98-107) mmol/L BUN 7 L (9-20) mg/dL Creatinine 0.62 L (0.66-1.25) mg/dL Glucose 160 H (74-99) mg/dL Urine Protein (Negative) Urine Ketones (Negative) Assessment and Plan (1) Shingles Status: Acute Code(s): B02.9 - ZOSTER WITHOUT COMPLICATIONS SNOMED Code(s): 9505460 Plan: 1patient presented to hospital with rash to the left side of the trunk in this patient who did have a vesicular rash involving the T4 dermatome on the left side highly suggestive of herpes zoster/shingles without any evidence of secondary bacterial cellulitis 2-patient will be advised Valtrex 1 g every 8 hour along with the pain management Will benefit from shingle vaccine down the road to prevent her recurrent episode of shingles this was a Splane to the patient and the We will follow on clinical condition and cultures to further adjust medication if needed Thank you for this consultation we will follow the patient along with you Dictation was produced using [employer] dictation software. please excuse any grammatical, word or spelling errors. Time with Patient: Greater than 30
[2024-04-30] MEDS: ASCORBIC ACID 500 MG TAB PO SCH (09:15)
[2024-04-30] MEDS: ENOXAPARIN 40 MG/0.4 ML SYRINGE SQ SCH (09:15)
[2024-04-30] MEDS: CYANOCOBALAMIN 500 MCG TAB PO SCH (09:15)
[2024-04-30] MEDS: HYDROcodone/APAP 5-325MG 1 EACH TAB PO PRN (12:19)
[2024-04-30 12:35] LABS: Glucose,Whole Blood 174 mg/dL (70-110)
--- NOTE | 2024-04-30 13:52 | P.DS ---
Providers Date of admission: 04/28/24 16:14 Expected date of discharge: 04/30/24 Attending physician: Vipin An MD Consults: 04/29/24 11:19 Consult Physician Routine Consulting Provider: Cuba Saldana Consult Reason/Comments: shingles Do you want consulting provider notified?: Yes Primary care physician: Andrea Manzano Hospital Course: Discharge diagnoses: Left back shingles: Pain control Valtrex 7 days ID consulted Hyponatremia Chronic hyponatremia, on sodium tablets at home Was hypovolemic, received IV fluids Given salt tablets during hospitalization, continued on sodium tablets at discharge Outpatient follow-up with PCP in 2 to 3 days to get repeat sodium checked. Diabetes mellitus: Resume home meds. Hospital course: 73-year-old male patient with past medical history significant for diabetes mellitus, hypertension, hyperlipidemia who presented to ER with left flank pain and rash for 1 day. Patient stated that he was having burning sensation, 8 x 10 pain in the left flank and a rash. Patient denied any fever or chills. Patient also was reported to be confused and more forgetful than usual by . Patient recently had a hunting trip. Patient also had history of chronic low sodium, has been on sodium tablets, had extensive workup done in the past. Patient was also reported to have increased urinary frequency and persistent cough for many weeks. Patient is afebrile, heart rate 98, respiratory rate 17, blood pressure 107/64, saturating 95% on room air. WBC 10.0, hemoglobin 13.5, platelet 240. Sodium on presentation was 125, now improved to 127. Potassium 3.3, BUN 7, creatinine 0.62. UA negative. Viral panel negative. Chest x-ray negative for acute process. Patient was admitted to hospital for further evaluation and management of hyponatremia and shingles rash. Patient started on Valtrex, continued on Valtrex for 7 more days at discharge, infectious disease consulted. Patient was given IV fluids during hospitalization due to concern for hypovolemia, patient continued on sodium tablets during hospitalization. Sodium improved to 129 prior to discharge. Patient asymptomatic. Advised the patient to get BMP checked within 2 to 3 days with PCP, patient adamant to be discharged home, agreeable to follow-up with PCP in 2 to 3 days. PHYSICAL EXAMINATION: GENERAL: The patient is A&O x3, NAD HEENT: EOMI, Sclerae anicteric, Moist Mucous membranes Neck: Supple, Non tender, No JVD PULMONARY: Equal breath souds B/L, No wheezing, No crackles. CARDIOVASCULAR: S1, S2 present. No murmurs, rubs, or gallops. ABDOMEN: Soft, nontender, nondistended, normoactive bowel sounds. No guarding or rebound tenderness. MUSCULOSKELETAL: No edema, No cyanosis. No clubbing. Normal ROM. Intact peripheral pulses. NEUROLOGICAL: CN 2-12 grossly intact. No FND Skin: Left back rash, radiating anteriorly to lower chest. Dictation was produced using [employer] dictation software. please excuse any grammatical, word or spelling errors. Patient Condition at Discharge: Fair Plan - Discharge Summary Discharge Rx Participant: Yes New Discharge Prescriptions: New valACYclovir HCL [Valacyclovir] 1,000 mg PO TID #21 tab Capsaicin Cream [Trixaicin Cream] 1 applic TOPICAL TID #60 gm HYDROcodone/APAP 5-325MG [[place] 5-325] 1 each PO Q6HR PRN #12 tab PRN Reason: Pain valACYclovir HCL [Valtrex] 1,000 mg PO TID 7 Days #21 tab Continue Omeprazole [PriLOSEC] 20 mg PO HS Cyclobenzaprine [Flexeril] 10 mg PO HS PRN PRN Reason: Muscle Spasm Sodium Bicarbonate Tab 650 mg PO BID Cyanocobalamin (Vitamin B-12) [Vitamin B-12] 1,000 mcg PO DAILY Zinc Gluconate [Zinc] 50 mg PO DAILY Atorvastatin [Lipitor] 40 mg PO HS Aspirin EC [Ecotrin Low Dose] 81 mg PO DAILY metFORMIN HCL [Glucophage] 850 mg PO TID-W/MEALS Metoprolol Tartrate [Lopressor] 25 mg PO DAILY Ascorbic Acid [Vitamin C] 1,000 mg PO DAILY Discharge Medication List Aspirin EC [Ecotrin Low Dose] 81 mg PO DAILY 03/28/24 [History] Atorvastatin [Lipitor] 40 mg PO HS 03/28/24 [History] Cyclobenzaprine [Flexeril] 10 mg PO HS PRN 03/28/24 [History] Omeprazole [PriLOSEC] 20 mg PO HS 03/28/24 [History] Sodium Bicarbonate Tab 650 mg PO BID 03/28/24 [History] Ascorbic Acid [Vitamin C] 1,000 mg PO DAILY 04/28/24 [History] Capsaicin Cream [Trixaicin Cream] 1 applic TOPICAL TID #60 gm 04/28/24 [Rx] Cyanocobalamin (Vitamin B-12) [Vitamin B-12] 1,000 mcg PO DAILY 04/28/24 [History] Metoprolol Tartrate [Lopressor] 25 mg PO DAILY 04/28/24 [History] Zinc Gluconate [Zinc] 50 mg PO DAILY 04/28/24 [History] metFORMIN HCL [Glucophage] 850 mg PO TID-W/MEALS 04/28/24 [History] valACYclovir HCL [Valacyclovir] 1,000 mg PO TID #21 tab 04/28/24 [Rx] HYDROcodone/APAP 5-325MG [[place] 5-325] 1 each PO Q6HR PRN #12 tab 04/30/24 [Rx] valACYclovir HCL [Valtrex] 1,000 mg PO TID 7 Days #21 tab 04/30/24 [Rx] Follow up Appointment(s)/Referral(s): Andrea Manzano DO [Primary Care Provider] - 1-2 days Patient Instructions/Handouts: Shingles (ED), Hyponatremia (ED)
--- NOTE | 2024-04-30 15:44 | P.PN ---
Subjective Progress Note Date: 04/30/24 Principal diagnosis: Reason for follow-up is left T4 dermatome shingles Patient is a 73-year-old male with a past medical history significant for diabetes mellitus reflux hypertension hyperlipidemia presenting to the hospital for evaluation of rash that has been noticed to the left mid chest area started the morning of presentation to hospital patient has been diagnosed with a shingles prompted this consultation. On today's evaluation that is 04/30/2024, Patient is afebrile patient is currently on room air and denies having any shortness of breath, the patient de nies any chest pain or cough, the patient denies any nausea vomiting did not have any abdominal pain and no diarrhea patient pain to the left trunk rash area is currently controlled and no new rash has been noticed. No new lab has been repeated today Objective - Vital Signs Vital signs: Vital Signs Temp 97.7 F 04/30/24 07:00 Pulse 86 04/30/24 07:00 Resp 16 04/30/24 07:00 BP 131/80 04/30/24 07:00 Pulse Ox 98 04/30/24 07:00 FiO2 Intake & Output 04/29/24 04/30/24 04/30/24 18:59 06:59 18:59 Other: Voiding Method Toilet # Voids 1 4 - Exam GENERAL DESCRIPTION: An elderly male lying in bed in no distress RESPIRATORY SYSTEM: Unlabored breathing , decreased breath sounds at bases HEART: S1 S2 regular rate and rhythm , ABDOMEN: Soft , no tenderness SKIN: Left side of the trunk T4 dermatome shingle rash slightly decreased in intensity no new rash - Labs CBC & Chem 7: 04/28/24 14:35 04/30/24 00:25 Labs: Abnormal Lab Results - Last 24 Hours (Table) 04/28/24 04/29/24 04/29/24 Range/Units 14:35 17:15 17:26 Sodium (137-145) mmol/L POC Glucose (mg/dL) 145 H (70-110) mg/dL Hemoglobin A1c 6.5 H (<=6.0) % Urine Osmolality 269 L (400-1100) mOsm/kg Ur Random Sodium (40-220) mmol/L 04/29/24 04/29/24 04/30/24 Range/Units 17:26 20:29 00:25 Sodium 129 L (137-145) mmol/L POC Glucose (mg/dL) 186 H (70-110) mg/dL Hemoglobin A1c (<=6.0) % Urine Osmolality (400-1100) mOsm/kg Ur Random Sodium <20 L (40-220) mmol/L 04/30/24 04/30/24 Range/Units 05:39 12:33 Sodium (137-145) mmol/L POC Glucose (mg/dL) 165 H 174 H (70-110) mg/dL Hemoglobin A1c (<=6.0) % Urine Osmolality (400-1100) mOsm/kg Ur Random Sodium (40-220) mmol/L Assessment and Plan (1) Shingles Status: Acute Code(s): B02.9 - ZOSTER WITHOUT COMPLICATIONS SNOMED Code(s): 8847038 Plan: 1patient presented to hospital with rash to the left side of the trunk in this patient who did have a vesicular rash involving the T4 dermatome on the left side highly suggestive of herpes zoster/shingles without any evidence of secondary bacterial cellulitis 2-patient will be advised 7-day course of oral Valtrex 1 g 3 times a day along with treatment for his neuralgia ideally Lyrica no need for antibiotics Dictation was produced using [employer] dictation software. please excuse any grammatical, word or spelling errors. Time with Patient: Less than 30
== END 2024-04-30 15:00 | disposition home or self-care (01) ==
LOC: EC 13:55 → 6NMEDSUR 16:14
PROVIDERS: ADMIT Internal Medicine; ATTEND Internal Medicine
DX: B02.9 Zoster without complications (principal); E87.1 Hypo-osmolality and hyponatremia; E86.1 Hypovolemia; E11.9 Type 2 diabetes mellitus without complications; I10 Essential (primary) hypertension; E78.5 Hyperlipidemia, unspecified; K21.9 Gastro-esophageal reflux disease without esophagitis; F17.200 Nicotine dependence, unspecified, uncomplicated; Z79.4 Long term (current) use of insulin; Z79.82 Long term (current) use of aspirin; Z79.84 Long term (current) use of oral hypoglycemic drugs; Z79.899 Other long term (current) drug therapy
CPT/HCPCS: 96372; 99284; 36415; 93005; 84300; 80053; 80048 ×2; 84295 ×2; 85025; 81003; 83935; 83036; 87636; 71046; G0378 ×3; J1650

== ENCOUNTER → 2024-05-26 | Outpatient (CLI) | payer MEDICARE ==
[2024-05-26 11:00] LABS: ALT 28 U/L (10-49); AST 23 U/L (14-35); Albumin 4.3 g/dL (3.8-4.9); Albumin/Globulin Ratio 1.34 Ratio (1.60-3.17); Alkaline Phosphatase 70 U/L (41-126); Blood Urea Nitrogen 9.2 mg/dL (9.0-27.0); Calcium 9.6 mg/dL (8.7-10.3); Carbon Dioxide 25.3 mmol/L (21.6-31.8); Chloride 97 mmol/L (96-109); Chol/HDL Ratio 2.03 Ratio; Globulin 3.2 g/dL (1.6-3.3); Glucose 106 mg/dL (70-110); LDL Cholesterol,Calculated 48.2 mg/dL (0.0-131.0); Potassium 4.4 mmol/L (3.5-5.5); Sodium 135 mmol/L (135-145); Total Bilirubin 0.5 mg/dL (0.3-1.2); Total Protein 7.5 g/dL (6.2-8.2); VLDL Calculation 15.26 mg/dL (5.00-40.00)
== END | disposition home or self-care (01) ==
LOC: LABWHC1 06:42
PROVIDERS: ATTEND Internal Medicine Interventional Cardiology
DX: E78.2 Mixed hyperlipidemia (principal)
CPT/HCPCS: 36415; 80053; 80061

== ENCOUNTER → 2024-06-07 | Outpatient (CLI) | payer MEDICARE ==
[2024-06-07 14:05] VITALS: BP 118/76; PULSE 98; RESP 16; TEMP 98.3
--- NOTE | 2024-06-07 14:39 | P.SLEEP ---
History of Present Illness DATE: 06/07/2024 CONSULTATION/NEW PATIENT EVALUATION HISTORY OF PRESENT ILLNESS/SLEEP-WAKE EVALUATION: 73-year-old gentleman had be en evaluated in the sleep center for possible obstructive sleep apnea hypopnea syndrome. SLEEP SCHEDULE: Usually sleep schedule 8 PM to 4 AM on working days and from 9 PM to 6 AM on weekend. FALLING ASLEEP: No significant problems with falling asleep. DURING SLEEP: Patient sleeps by himself, so no clear information about snoring. Patient sleeps only on the stomach position since childhood. No history of hypnogogical hallucinations, sleep paralysis, or cataplexy. DURING THE DAY/WAKE STATE: Patient denied significant excessive daytime sleepiness. [place] sleepiness scale is 0. Patient does not take naps. PAST MEDICAL HISTORY: Hypertension, diabetes mellitus, hyperlipidemia, acid reflux. PAST SURGICAL HISTORY: Right knee replacement. MEDICATIONS: Have been reviewed please see below. SOCIAL HISTORY: Please see below. FAMILY HISTORY: Please see below. REVIEW OF SYSTEMS: No fevers. No double vision. No recent chest pain. No shortness of breath. No abdominal pain. No bleeding episodes. No blood in urine. No seizure episodes. PHYSICAL EXAMINATION: GENERAL: A pleasant patient without any distress. VITAL SIGNS: Please see below, weight 206 pounds, BMI 30.4. HEENT: PERRLA, EOMI. Evaluation of oropharynx showed tongue protrudes midline, low position of soft palate Mallampati 34. NECK: Supple. No JVD. Thyroid is not palpable. 17.5 inches in circumference. LUNGS: Clear to percussion and to auscultation. Good air exchange. No wheezing or rhonchi. HEART: S1, S2 regular. No murmurs, gallops or rubs. ABDOMEN: Soft and nontender. Bowel sounds are present. No organomegaly appreciated. EXTREMITIES: No clubbing or cyanosis. EDGE DRUMMER: Awake, alert, and oriented x3. Cranial nerves 2 to 7 intact. There is no fasciculation or atrophy noted. No focal deficits observed. ASSESSMENT: 1. Patient sleeps by himself, no information about snoring. Patient sleeps only on the belly position. Low position of soft palate Mallampati 34, wide neck 17.5 inches in circumference. Possible obstructive sleep apnea hypopnea syndrome. 2. Mild obesity BMI 30.4. 3. Hypertension. 4. Diabetes mellitus. 5 hyperlipidemia. 6 . Acid reflux. 7. Status post right knee replacement. PLAN: 1. Polysomnography for evaluation of patient's breathing during sleep. 2. Following plan after reading sleep study. 3. Preferable position during sleep on the side. 4. No driving if patient feels any sleepiness. Patient is aware of civil and criminal liability for unsafe driving. 5. Sleep hygiene with regular sleep time for at least 7.5-8 hours. 6. Watching weight. Thank you very much for referring this patient for consultation. Sincerely, Julito Montiel MD, PhD, FAASM. Diplomat of [place] [employer], Sleep Medicine Board by [employer] Virtual Office Assistant [facility] [place] cc: Andrea Manzano DO Past Medical History Past Medical History: Diabetes Mellitus, GERD/Reflux, Hearing Disorder / Deafness, Hyperlipidemia, Hypertension, Musculoskeletal Disorder Additional Past Medical History / Comment(s): RT UPPER ARM NT. PAIN IN NECK, LOWER BACK - HX OF PAIN INJ.. History of Any Multi-Drug Resistant Organisms: MRSA Date of last positivie culture/infection: 2006 MDRO Source:: RT WAISTLINE, TESTICLE Past Surgical History: Orthopedic Surgery Additional Past Surgical History / Comment(s): Repaired ruptured disks in neck- fusion. Right knee replacement surgery. Bilat shoulder rotator cuff surgery. Past Anesthesia/Blood Transfusion Reactions: No Reported Reaction Past Psychological History: No Psychological Hx Reported Smoking Status: Current some day smoker Past Alcohol Use History: Rare Additional Past Alcohol Use History / Comment(s): SMOKED [id number], 2 PPD; NOW OCC CIGAR Past Drug Use History: None Reported - Past Family History Father Family Medical History: Cancer Mother Family Medical History: Cancer Medications and Allergies Home Medications Medication Instructions Recorded Confirmed Type Aspirin EC [Ecotrin Low Dose] 81 mg PO DAILY 03/28/24 06/07/24 History Atorvastatin [Lipitor] 40 mg PO HS 03/28/24 06/07/24 History Cyclobenzaprine [Flexeril] 10 mg PO HS PRN 03/28/24 06/07/24 History Omeprazole [PriLOSEC] 20 mg PO HS 03/28/24 06/07/24 History Sodium Bicarbonate Tab 650 mg PO BID 03/28/24 06/07/24 History Ascorbic Acid [Vitamin C] 1,000 mg PO DAILY 04/28/24 06/07/24 History Capsaicin Cream [Trixaicin Cream] 1 applic TOPICAL TID #60 gm 04/28/24 Rx Cyanocobalamin (Vitamin B-12) 1,000 mcg PO DAILY 04/28/24 06/07/24 History [Vitamin B-12] Metoprolol Tartrate [Lopressor] 25 mg PO DAILY 04/28/24 06/07/24 History Zinc Gluconate [Zinc] 50 mg PO DAILY 04/28/24 06/07/24 History metFORMIN HCL [Glucophage] 850 mg PO TID-W/MEALS 04/28/24 06/07/24 History valACYclovir HCL [Valacyclovir] 1,000 mg PO TID #21 tab 04/28/24 Rx HYDROcodone/APAP 5-325MG [[place] 1 each PO Q6HR PRN #12 tab 04/30/24 Rx 5-325] valACYclovir HCL [Valtrex] 1,000 mg PO TID 7 Days #21 tab 04/30/24 Rx Ezetimibe [Zetia] 10 mg PO DAILY 06/07/24 06/07/24 History Simvastatin 40 mg PO DAILY 06/07/24 06/07/24 History Allergies Allergy/AdvReac Type Severity Reaction Status Date / Time Iodinated Contrast Media AdvReac BODY FELT Verified 05/14/24 12:58 [Iodinated Contrast Media - FROZEN Oral and] Physical Exam Vitals: Vital Signs Temp Pulse Resp BP Pulse Ox 06/07/24 14:04 98.3 F 98 16 118/76 97 Intake and Output 06/06/24 06/07/24 06/07/24 22:59 06:59 14:59 Other: Weight 93.44 kg Sleep Note - Sleep Data ESS Total: 0 - Sleep Note Sleep Note: Temperature: 98.3 F Pulse Rate: 98 Respiratory Rate: 16 Blood Pressure: 118/76 SpO2: 97 Height: 5 ft 9 in Weight: 93.44 kg BMI: Neck Circumference: 17.5
== END ==
LOC: 3 N SLEEP 13:35
PROVIDERS: ATTEND Internal Medicine
DX: E66.9 Obesity, unspecified (principal); E11.9 Type 2 diabetes mellitus without complications; I10 Essential (primary) hypertension; E78.5 Hyperlipidemia, unspecified; K21.9 Gastro-esophageal reflux disease without esophagitis; F17.210 Nicotine dependence, cigarettes, uncomplicated; Z96.651 Presence of right artificial knee joint; Z68.30 Body mass index [BMI] 30.0-30.9, adult; Z91.041 Radiographic dye allergy status
CPT/HCPCS: 99211

== ENCOUNTER 2024-07-11 19:30 | Outpatient (CLI) | payer MEDICARE ==
--- NOTE | 2024-07-20 11:16 | P.PCN ---
Description of Procedure: POLYSOMNOGRAPHY REPORT PROCEDURE(S)/DATE(S): Polysomnography 07/11/2024 CLINICAL: Patient has been seen in the sleep center for evaluation of obstructive sleep apnea-hypopnea syndrome. Please see my consultation. Sleep study has been done for evaluation of patient breathing during the sleep. PROCEDURE: The standard montage for clinical polysomnography included the electroencephalogram, the electrooculogram, the mentalis surface electromyography and Lead II cardiography. The respiratory battery consisted of measurements of nasal/buccal air flow, pressure transducer measurements from nose, thoracic and/or abdominal effort and intercostal surface electromyography. Video monitoring has been done to check for any parasomnia events. Nocturnal oxyhemoglobin saturations were obtained by finger oximetry. Step-claire titration with positive airway pressure was utilized to control the respiratory events, if necessary. RESULTS: During the diagnostic sleep study sleep efficiency was borderline 87.8%. Latency to sleep onset was normal 11.5 min. Sleep architecture showed stage NI was short 3.6%, Delta sleep was 4-3.4%, REM sleep was normal 20.7%. Respiratory channel showed 3 obstructive apneas, 0 mixed apneas, 0 central apneas, 1 hypopneas with lowest oxygen level 89%. Total apnea hypopnea index was 0.7. Heart rate was in the range between 51 and 70, average 57. EMG showed 20 periodic limb movements per hour with 0 micro-arousals per hour. IMPRESSIONS: 1. No significant respiratory abnormalities have been documented during the sleep study. 2. Periodic limb movements have been documented mostly at the end of the sleep study. Please see other impressions from consultation PLAN: 1. Sleep hygiene with regular time in bed for at least 7-1/2 hours. 2. No driving if feeling sleepiness. 3. Please check iron profile including ferritin level. Low level of iron may increase the risk for periodic limb movements. 4. I will see patient for follow-up visit to explain results of the test and recommendations. Thank you very much for allowing me to participate in the management of your patient. Sincerely, Julito Montiel MD, PhD, FAASM. Diplomat of [place] [employer], Sleep Medicine Board by [employer] Sign Wirer [facility] [place] cc: Andrea Manzano DO
== END 2024-07-12 06:00 | disposition home or self-care (01) ==
LOC: 3 N SLEEP 19:30
PROVIDERS: ATTEND Internal Medicine
DX: G47.33 Obstructive sleep apnea (adult) (pediatric) (principal); G47.61 Periodic limb movement disorder; F17.210 Nicotine dependence, cigarettes, uncomplicated; Z91.041 Radiographic dye allergy status
CPT/HCPCS: 95810

== ENCOUNTER 2024-07-27 14:31 | Observation (INO) | payer MEDICARE ==
--- NOTE | 2024-07-27 15:18 | ED ---
General Adult HPI - General Chief complaint: Altered Mental Status Stated complaint: ABN Labs Time Seen by Provider: 07/27/24 14:44 Source: patient, RN notes reviewed, old records reviewed Mode of arrival: ambulatory Limitations: no limitations - History of Present Illness Initial comments: 73 yo male presenting with acute confusion. Patient's indicates that he has had some issues over the past 24 to 48 hours "has not been right". His more severe confusion began this morning prior to arrival. There has been no fever. Patient denies pain complaints. He is able to answer questions and is alert and oriented x 2. No focal neurologic findings or complaints. The patient has similar episode to this several months back and was diagnosed with hydrocephalus and hyponatremia at that time. Was evaluated at an outside hospital and felt to not be a candidate for any intervention. - Related Data Home Medications Medication Instructions Recorded Confirmed Aspirin EC [Ecotrin Low Dose] 81 mg PO DAILY 03/28/24 06/07/24 Atorvastatin [Lipitor] 40 mg PO HS 03/28/24 06/07/24 Cyclobenzaprine [Flexeril] 10 mg PO HS PRN 03/28/24 06/07/24 Omeprazole [PriLOSEC] 20 mg PO HS 03/28/24 06/07/24 Sodium Bicarbonate Tab 650 mg PO BID 03/28/24 06/07/24 Ascorbic Acid [Vitamin C] 1,000 mg PO DAILY 04/28/24 06/07/24 Cyanocobalamin (Vitamin B-12) 1,000 mcg PO DAILY 04/28/24 06/07/24 [Vitamin B-12] Metoprolol Tartrate [Lopressor] 25 mg PO DAILY 04/28/24 06/07/24 Zinc Gluconate [Zinc] 50 mg PO DAILY 04/28/24 06/07/24 metFORMIN HCL [Glucophage] 850 mg PO TID-W/MEALS 04/28/24 06/07/24 Ezetimibe [Zetia] 10 mg PO DAILY 06/07/24 06/07/24 Simvastatin 40 mg PO DAILY 06/07/24 06/07/24 Previous Rx's Medication Instructions Recorded Capsaicin Cream [Trixaicin Cream] 1 applic TOPICAL TID #60 gm 04/28/24 valACYclovir HCL [Valacyclovir] 1,000 mg PO TID #21 tab 04/28/24 HYDROcodone/APAP 5-325MG [[place] 1 each PO Q6HR PRN #12 tab 04/30/24 5-325] valACYclovir HCL [Valtrex] 1,000 mg PO TID 7 Days #21 tab 04/30/24 Allergies Allergy/AdvReac Type Severity Reaction Status Date / Time Iodinated Contrast Media AdvReac BODY FELT Verified 07/27/24 14:41 [Iodinated Contrast Media - FROZEN Oral and] Review of Systems ROS Statement: Those systems with pertinent positive or pertinent negative responses have been documented in the HPI. ROS Other: All systems not noted in ROS Statement are negative. Past Medical History Past Medical History: Diabetes Mellitus, GERD/Reflux, Hearing Disorder / Deafness, Hyperlipidemia, Hypertension, Musculoskeletal Disorder Additional Past Medical History / Comment(s): RT UPPER ARM NT. PAIN IN NECK, LOWER BACK - HX OF PAIN INJ.. History of Any Multi-Drug Resistant Organisms: MRSA Date of last positivie culture/infection: 2006 MDRO Source:: RT WAISTLINE, TESTICLE Past Surgical History: Orthopedic Surgery Additional Past Surgical History / Comment(s): Repaired ruptured disks in neck- fusion. Right knee replacement surgery. Bilat shoulder rotator cuff surgery. Past Anesthesia/Blood Transfusion Reactions: No Reported Reaction Past Psychological History: No Psychological Hx Reported Smoking Status: Current some day smoker Past Alcohol Use History: Rare Past Drug Use History: None Reported - Past Family History Father Family Medical History: Cancer Mother Family Medical History: Cancer General Exam Limitations: no limitations General appearance: alert, in no apparent distress Head exam: Present: atraumatic, normocephalic Eye exam: Present: normal appearance, PERRL ENT exam: Present: normal exam Neck exam: Present: normal inspection. Absent: tenderness, meningismus Respiratory exam: Present: normal lung sounds bilaterally. Absent: respiratory distress, wheezes Cardiovascular Exam: Present: regular rate, normal rhythm GI/Abdominal exam: Present: soft. Absent: distended, tenderness, guarding Neurological exam: Present: alert, CN II-XII intact. Absent: oriented X3 (2), motor sensory deficit Psychiatric exam: Present: normal affect, normal mood Skin exam: Present: warm, dry, intact. Absent: cyanosis, diaphoretic Course Vital Signs 07/27/24 07/27/24 07/27/24 14:36 16:28 17:16 Temperature 97.7 F Pulse Rate 69 62 66 Respiratory 18 23 13 Rate Blood Pressure 122/75 118/69 119/72 O2 Sat by Pulse 99 98 97 Oximetry Medical Decision Making - Medical Decision Making Was pt. sent in by a medical professional or institution (, ART, PROJECT COORDINATOR RN, urgent care, hospital, or senior living...) When possible be specific @ -No Did you speak to anyone other than the patient for history (EMS, parent, family, police, friend...)? What history was obtained from this source @Is who is at bedside able to give detailed history Did you review nursing and triage notes (agree or disagree)? Why? @ -I reviewed and agree with nursing and triage notes Were old charts reviewed (outside hosp., previous admission, EMS record, old EKG, old radiological studies, urgent care reports/EKG's, senior living records)? Report findings @ -No old charts were reviewed Differential Altered Mental Status: Hypoglycemia, DKA, hypercapnia, ETOH, overdose, CO poisoning, trauma, myxedema coma, HTN encephalopathy, infection, encephalitis, psychosis, intercranial hemorrhage, hepatic encephalopathy, meningitis, CVA, this is not meant to be an all-inclusive list EKG interpreted by me (3pts min.). @Sinus rhythm with a first-degree AV block, right bundle branch block, left posterior fascicular block rate of 67, IL interval 215, QRS duration 162, QTc [address] segment elevation. X-rays interpreted by me (1pt min.). @ -None done CT interpreted by me (1pt min.). @ -CT brain negative for intracranial hemorrhage, volume loss present U/S interpreted by me (1pt. min.). @ -None done What testing was considered but not performed or refused? (CT, X-rays, U/S, labs)? Why? @ -None What meds were considered but not given or refused? Why? @ -None Did you discuss the management of the patient with other professionals (professionals i.e. , ART, PROJECT COORDINATOR RN, lab, RT, psych nurse, social media marketing analyst, reducing salon attendant, teacher, community reinvestment act officer, welfare case worker)? Give summary @ -Dr. Manzano Was smoking cessation discussed for >3mins.? @ -No Was critical care preformed (if so, how long)? @ -No Were there social determinants of health that impacted care today? How? (Homelessness, low income, unemployed, alcoholism, drug addiction, transportation, low edu. Level, literacy, decrease access to med. care, fdc, rehab)? @ -No Was there de-escalation of care discussed even if they declined (Discuss DNR or withdrawal of care, Hospice)? DNR status @ -No What co-morbidities impacted this encounter? (DM, HTN, Smoking, COPD, CAD, Cancer, CVA, ARF, Chemo, Hep., AIDS, mental health diagnosis, sleep apnea, morbid obesity)? @ -NPH, diabetes, hypertension Was patient admitted / discharged? Hospital course, mention meds given and route, prescriptions, significant lab abnormalities, going to OR and other pertinent info. @ -73-year-old male with acute confusion worse today but has been somewhat present for the past several days. Had a diagnosis of normal pressure hydrocephalus made approximately 4 months ago, did not receive any specific treatment for this. Patient is afebrile, normotensive. He has a nonfocal neurologic exam. He is alert and oriented x 2 and occasionally x 3. He has a normal CBC, CMP shows a mild hyponatremia 134 which is baseline. Head CT shows chronic changes without acute findings. Urinalysis is negative. Patient will be observed with consult to neurology for further evaluation. Case discussed with Dr. Manzano who will admit. Undiagnosed new problem with uncertain prognosis? @ -No Drug Therapy requiring intensive monitoring for toxicity (Heparin, Nitro, Insulin, Cardizem)? @ -No Were any procedures done? @ -No Diagnosis/symptom? @ -Altered mental status Acute, or Chronic, or Acute on Chronic? @Acute on chronic Uncomplicated (without systemic symptoms) or Complicated (systemic symptoms)? @ -Default Side effects of treatment? @ -No Exacerbation, Progression, or Severe Exacerbation? @ -No Poses a threat to life or bodily function? How? (Chest pain, [place], [place], pneumonia, PE, COPD, DKA, ARF, appy, cholecystitis, CVA, Diverticulitis, Homicidal, Suicidal, threat to staff... and all critical care pts) @Yes, acute delirium - Lab Data Result diagrams: 07/27/24 15:11 07/27/24 15:11 Lab Results 07/27/24 07/27/24 07/27/24 Range/Units 15:11 15:11 15:11 WBC 12.54 H (4.50-10.00) 10*3/uL RBC 4.20 L (4.40-5.60) 10*6/uL Hgb 14.1 (13.0-17.0) g/dL Hct 39.5 L (39.6-50.0) % MCV 94.0 (80.0-97.0) fL MCH 33.6 H (27.0-32.0) pg MCHC 35.7 (32.0-37.0) g/dL Plt Count 218 (140-440) 10*3/uL MPV 8.7 L (9.5-12.2) fL Immature Gran % (Auto) 0.5 % Neutrophils % 77.0 % Lymphocytes % 14.1 % Monocytes % 7.7 % Eosinophils % 0.4 % Basophils % 0.3 % Immature Gran # 0.06 H (0.00-0.04) 10*3/uL Neutrophils # 9.66 H (1.80-7.70) 10*3/uL Lymphocytes # 1.77 (0.90-5.00) 10*3/uL Monocytes # 0.96 (0.20-1.00) 10*3/uL Eosinophils # 0.05 (0.04-0.35) 10*3/uL Basophils # 0.04 (0.00-0.10) 10*3/uL PT 10.7 (10.0-12.5) sec INR 1.0 (<1.2) APTT 23.3 (22.0-30.0) sec Sodium 134 L (137-145) mmol/L Potassium 4.0 (3.5-5.1) mmol/L Chloride 98 (98-107) mmol/L Carbon Dioxide 26 (22-30) mmol/L Anion Gap 10 mmol/L BUN 17 (9-20) mg/dL Creatinine 0.69 (0.66-1.25) mg/dL Est GFR (CKD-EPI)AfAm >90 (>60 ml/min/1.73 sqM) Est GFR (CKD-EPI)NonAf >90 (>60 ml/min/1.73 sqM) Glucose 215 H (74-99) mg/dL POC Glucose (mg/dL) (70-110) mg/dL POC Glu Medication Assistant ID Calcium 9.5 (8.4-10.2) mg/dL Total Bilirubin 0.6 (0.2-1.3) mg/dL AST 21 (17-59) U/L ALT 21 (4-49) U/L Alkaline Phosphatase 45 (38-126) U/L Troponin I (0.000-0.034) ng/mL Total Protein 6.8 (6.3-8.2) g/dL Albumin 4.0 (3.5-5.0) g/dL Urine Color Urine Appearance (Clear) Urine pH (5.0-8.0) Ur Specific [place] (1.001-1.035) Urine Protein (Negative) Urine Glucose (UA) (Negative) Urine Ketones (Negative) Urine Blood (Negative) Urine Nitrite (Negative) Urine Bilirubin (Negative) Urine Urobilinogen (<2.0) mg/dL Ur Leukocyte Esterase (Negative) Urine Opiates Screen (NotDetected) Ur Oxycodone Screen (NotDetected) Urine Methadone Screen (NotDetected) Ur Barbiturates Screen (NotDetected) U Tricyclic Antidepress (NotDetected) Ur Phencyclidine Scrn (NotDetected) Ur Amphetamines Screen (NotDetected) U Methamphetamines Scrn (NotDetected) U Benzodiazepines Scrn (NotDetected) Urine Cocaine Screen (NotDetected) U Marijuana (THC) Screen (NotDetected) Serum Alcohol <10 mg/dL 07/27/24 07/27/24 07/27/24 Range/Units 15:11 16:03 17:33 WBC (4.50-10.00) 10*3/uL RBC (4.40-5.60) 10*6/uL Hgb (13.0-17.0) g/dL Hct (39.6-50.0) % MCV (80.0-97.0) fL MCH (27.0-32.0) pg MCHC (32.0-37.0) g/dL Plt Count (140-440) 10*3/uL MPV (9.5-12.2) fL Immature Gran % (Auto) % Neutrophils % % Lymphocytes % % Monocytes % % Eosinophils % % Basophils % % Immature Gran # (0.00-0.04) 10*3/uL Neutrophils # (1.80-7.70) 10*3/uL Lymphocytes # (0.90-5.00) 10*3/uL Monocytes # (0.20-1.00) 10*3/uL Eosinophils # (0.04-0.35) 10*3/uL Basophils # (0.00-0.10) 10*3/uL PT (10.0-12.5) sec INR (<1.2) APTT (22.0-30.0) sec Sodium (137-145) mmol/L Potassium (3.5-5.1) mmol/L Chloride (98-107) mmol/L Carbon Dioxide (22-30) mmol/L Anion Gap mmol/L BUN (9-20) mg/dL Creatinine (0.66-1.25) mg/dL Est GFR (CKD-EPI)AfAm (>60 ml/min/1.73 sqM) Est GFR (CKD-EPI)NonAf (>60 ml/min/1.73 sqM) Glucose (74-99) mg/dL POC Glucose (mg/dL) 174 H (70-110) mg/dL POC Glu Medication Assistant ID Warren Sarai Calcium (8.4-10.2) mg/dL Total Bilirubin (0.2-1.3) mg/dL AST (17-59) U/L ALT (4-49) U/L Alkaline Phosphatase (38-126) U/L Troponin I <0.012 (0.000-0.034) ng/mL Total Protein (6.3-8.2) g/dL Albumin (3.5-5.0) g/dL Urine Color Light Yellow Urine Appearance Clear (Clear) Urine pH 6.0 (5.0-8.0) Ur Specific [place] 1.014 (1.001-1.035) Urine Protein Negative (Negative) Urine Glucose (UA) Trace H (Negative) Urine Ketones Negative (Negative) Urine Blood Negative (Negative) Urine Nitrite Negative (Negative) Urine Bilirubin Negative (Negative) Urine Urobilinogen <2.0 (<2.0) mg/dL Ur Leukocyte Esterase Negative (Negative) Urine Opiates Screen Detected H (NotDetected) Ur Oxycodone Screen Not Detected (NotDetected) Urine Methadone Screen Not Detected (NotDetected) Ur Barbiturates Screen Not Detected (NotDetected) U Tricyclic Antidepress Detected H (NotDetected) Ur Phencyclidine Scrn Not Detected (NotDetected) Ur Amphetamines Screen Not Detected (NotDetected) U Methamphetamines Scrn Not Detected (NotDetected) U Benzodiazepines Scrn Not Detected (NotDetected) Urine Cocaine Screen Not Detected (NotDetected) U Marijuana (THC) Screen Not Detected (NotDetected) Serum Alcohol mg/dL Disposition Clinical Impression: Altered mental status Disposition: ADMITTED IP TO THIS HOSP Condition: Stable Is patient prescribed a controlled substance at d/c from ED?: No Referrals: Andrea Manzano DO [Primary Care Provider] - 1-2 days Time of Disposition: 18:00
[2024-07-27 15:33] LABS: Basophils # (A) 0.04 10*3/uL (0.00-0.10); Basophils % (A) 0.3 %; Eosinophils # (A) 0.05 10*3/uL (0.04-0.35); Eosinophils % (A) 0.4 %; HCT 39.5 % (39.6-50.0); HGB 14.1 g/dL (13.0-17.0); Lymphocytes # (A) 1.77 10*3/uL (0.90-5.00); Lymphocytes % (A) 14.1 %; MCH 33.6 pg (27.0-32.0); MCHC 35.7 g/dL (32.0-37.0); Mean Platelet Volume 8.7 fL (9.5-12.2); Monocytes # (A) 0.96 10*3/uL (0.20-1.00); Monocytes % (A) 7.7 %; Neutrophils # (A) 9.66 10*3/uL (1.80-7.70); Platelet Count 218 10*3/uL (140-440); RDW 13.4 % (11.5-14.5); WBC 12.54 10*3/uL (4.50-10.00)
[2024-07-27 15:50] LABS: ALT 21 U/L (4-49); AST 21 U/L (17-59); African American GFR (CKD) >90 (>60 ml/min/1.73 sqM); Alcohol <10 mg/dL; Alkaline Phosphatase 45 U/L (38-126); Anion Gap 10 mmol/L; Blood Urea Nitrogen 17 mg/dL (9-20); Calcium 9.5 mg/dL (8.4-10.2); Carbon Dioxide 26 mmol/L (22-30); Chloride 98 mmol/L (98-107); Glucose 215 mg/dL (74-99); Non-African American GFR(CKD) >90 (>60 ml/min/1.73 sqM); Partial Thromboplastin Time 23.3 sec (22.0-30.0); Prothrombin Time 10.7 sec (10.0-12.5); Sodium 134 mmol/L (137-145); Total Bilirubin 0.6 mg/dL (0.2-1.3); Total Protein 6.8 g/dL (6.3-8.2)
[2024-07-27] MEDS: SODIUM CHLORIDE 0.9% 500 ML 500 ML IV ONE (16:02)
[2024-07-27 16:20] LABS: Appearance,Urine Clear (Clear); Bilirubin,Urine Negative (Negative); Blood,Urine Negative (Negative); Color,Urine Light Yellow; Glucose,Urine (UA) Trace (Negative); Ketones,Urine Negative (Negative); Leukocyte Esterase,Urine Negative (Negative); Nitrite,Urine Negative (Negative); Protein,Urine Negative (Negative); Specific Gravity,Urine 1.014 (1.001-1.035); Urobilinogen,Urine <2.0 mg/dL (<2.0)
[2024-07-27 16:32] LABS: Amphetamine Screen,Urine Not Detected (NotDetected); Barbiturate Screen,Urine Not Detected (NotDetected); Benzodiazepines Screen,Urine Not Detected (NotDetected); Cocaine Screen,Urine Not Detected (NotDetected); Methadone Screen, Urine Not Detected (NotDetected); Opiate Screen,Urine Detected (NotDetected); Oxycodone Screen, Urine Not Detected (NotDetected); Phencyclidine Screen,Urine Not Detected (NotDetected); Tricyclic Antidepressant,Urine Detected (NotDetected); Urn Cannabinoid Scrn Not Detected (NotDetected)
--- NOTE | 2024-07-27 16:43 | CT ---
EXAMINATION TYPE: CT brain wo con DATE OF EXAM: 07/27/2024 COMPARISON: 03/30/2024 CLINICAL INDICATION: Male, 73 years old with history of Altered mental status; PH, Pt comes to EC wi th complaint of Confusion that started between 11:10 AND 11:20. Per pt wasn't able to say what h e wanted to say and then started to speek [place]. Pt has hx of this in the past and has hx of hydro cephalus and elevated sodium which caused his symptoms. Pt hs no arm/leg drift, symetrical smile in t riage and equal weigh box tender strength. CT DLP: 1219.4 mGycm Automated exposure control for dose reduction was used. Findings: There is marked enlargement of the ventricles and mild to moderate enlargement of the basal cisterns and sulci over the convexities. The findings are consistent with moderate to marked atrophy with a gr eater central component There is mild diffuse decreased density in the periventricular white matter consistent with mild contracts specialist tracey ischemic white matter demyelination. There is mild basal ganglial calcification. There is no mass effect or shift of midline structures. There is no acute intra or extra-axial hemorrhage.. The posterior fossa including the brainstem, fourth ventricle and cerebellar pontine angles appear no rmal. Intraorbital contents appear normal and symmetric. There is stable mild chronic inflammatory change in the left maxillary sinus and the mastoid air cell s are well aerated. The calvarium is intact. IMPRESSION: 1. No acute bleed or mass effect. 2. Stable senescent changes. Probable moderate to marked atrophy with a greater central component and mild chronic ischemic white matter demyelination. [facility], Workstation: [email or web address] 07/27/2024 4:41 PM
[2024-07-27 17:34] LABS: Glucose,Whole Blood 174 mg/dL (70-110)
[2024-07-27] MEDS ORDERED: NALOXONE 0.4 MG/ML 1 ML VIAL IV PRN (17:57)
[2024-07-27] MEDS ORDERED: ACETAMINOPHEN TAB 325 MG TAB PO PRN (17:57)
[2024-07-27] MEDS: SODIUM CHLORIDE 0.9% 1,000 ML IV SCH (19:22)
[2024-07-27] MEDS: ATORVASTATIN 40 MG TAB PO SCH (21:52)
[2024-07-27] MEDS: SODIUM BICARBONATE TAB 650 MG TAB PO SCH (21:52)
[2024-07-27] MEDS: CYCLOBENZAPRINE 10 MG TAB PO SCH (21:52)
[2024-07-27] MEDS: EZETIMIBE 10 MG TAB PO SCH (21:52)
[2024-07-27] MEDS: METOPROLOL TARTRATE 12.5 MG TAB PO SCH (21:52)
[2024-07-27] MEDS: LOSARTAN 50 MG TAB PO SCH (21:52)
[2024-07-28] MEDS: metFORMIN 850 MG TAB PO SCH (06:27)
[2024-07-28] MEDS: ZINC SULFATE 220 MG CAP PO SCH ×2 (08:09→08:19)
[2024-07-28] MEDS: ASCORBIC ACID 500 MG TAB PO SCH (08:19)
[2024-07-28] MEDS: CYANOCOBALAMIN 500 MCG TAB PO SCH (08:19)
[2024-07-28] MEDS: ASPIRIN 81 MG PO SCH (08:19)
[2024-07-28 08:24] VITALS: RESP 18
[2024-07-28] MEDS ORDERED: DEXTROSE 50% SYRINGE 50 ML IVP PRN ×2 (11:25)
[2024-07-28 11:59] LABS: Glucose,Whole Blood 216 mg/dL (70-110)
[2024-07-28] MEDS: INSULIN LISPRO (HumaLOG) 100 UNIT/ML 10 mL VL SQ SCH (12:31)
[2024-07-28] MEDS: PANTOPRAZOLE 40 MG TABLET PO SCH (12:37)
[2024-07-28] MEDS: PANTOPRAZOLE 40 MG/10 ML VIAL IVP SCH (12:55)
[2024-07-28] MEDS ORDERED: INSULIN GLARGINE (LANTUS) 100 UNIT/ML SYR SQ SCH (13:22)
--- NOTE | 2024-07-28 13:29 | P.HPIM ---
History of Present Illness H&P Date: 07/28/24 History and Physical and Discharge Summary This is a 73-year-old occasion male, past medical history significant for normal pressure hydrocephalus-transferred to [facility] for further evaluation 03/28-patient reports not a candidate for intervention, hyponatremia ,herpes zoster/shingles 04/29, herpetic neuralgia, CAD, history of CA with stenting of the first diag., hypertension, hyperlipidemia, diabetes ,nicotine dependence, occasional alcohol use, obesity, gastroesophageal reflux disease, hard of hearing, chronic neck pain/ cervical fusion, bilateral rotator cuff surgeries and multiple other medical issues brought into the ER yesterday with progressive change in mental status. Prior to ER, patient had seen his PCP , Dr. Manzano. Patient ambulated into PCPs office without difficulty. reported patient had confusion, garbled speech. In the office with PCP, patient was alert and oriented to person, did not recognize PCP, did not know who the president & founder was, speech clear, no motor strength loss, fidgety. Significant other reported earlier that morning prior to seeing a PCP that he had gone out with his friends, came home, disappeared into his motor home for a little while, returned to the house around 10 AM, when she noticed him to be confused with garbled speech. By the next morning, confusion progressed and was brought into the ER. Denies fever, rigors or chills .On exam patient is alert and oriented x 3, moves all extremities, no garbled speech, recognizes PCP, A&O X 3. Denies chest pain, palpitations or shortness of breath. Afebrile, WBC 12.54, hemoglobin 14.1, platelets 218, INR 1, sodium 134, potassium 4, bicarb 26, BUN 17, creatinine 0.69. Blood sugars ranging from 174- 216, A1c pending. Troponin negative x 1. UA negative. Toxicology detected opiates and tricyclic antidepressants, serum alcohol less than 10. Brain CT reported no acute bleed or mass effect, stable senescent changes, proba ble moderate to marked atrophy with a greater central component and mild chronic white matter demyelination. EKG reported sinus rhythm with first-degree AV block, left posterior fascicular block, Imaging completed 03/28: MRI brain with and without contrast, report mild dilation of the ventricular system, mildly progressed from 2014, correlate for hydrocephalus. Otherwise no evidence of intracranial mass, acute/subacute infarct or abnormal enhancement. Nonspecific white matter changes, likely related to small vessel ischemic disease. Carotid Doppler reported limited secondary to tortuosity of the evaluated vessels. Left vertebral artery was not visualized. Limited evaluation of the right common carotid artery. CTA recommended. No hemodynamically significant stenosis. MRA of the head and neck reported no evidence for vertebral artery occlusion or dissection. Both vertebral arteries are visualized. Nonvisualization on ultrasound was likely due to technique. No evidence of intracranial aneurysm or significant stenosis. No evidence of significant stenosis at the carotid bifurcation. The carotid and vertebral arteries are patent. No aneurysm. EEG reported abnormal due to background slowing of mild to moderate degree. This is suggestive of generalized cerebral dysfunction as can be seen with toxic metabolic encephalopathy or related to diffuse structural brain abnormality. Clinical correlation is recommended. No epileptiform activity was seen. Review of Systems ROS Statement: Those systems with pertinent positive or pertinent negative responses have been documented in the HPI. ROS Other: All systems not noted in ROS Statement are negative. Past Medical History Past Medical History: Diabetes Mellitus, GERD/Reflux, Hearing Disorder / Deafness, Hyperlipidemia, Hypertension, Musculoskeletal Disorder Additional Past Medical History / Comment(s): RT UPPER ARM NT. PAIN IN NECK, LOWER BACK - HX OF PAIN INJ.. Hydrocephalus - march 2024, hyponatremia History of Any Multi-Drug Resistant Organisms: MRSA Date of last positivie culture/infection: 2006 MDRO Source:: RT WAISTLINE, TESTICLE Past Surgical History: Orthopedic Surgery Additional Past Surgical History / Comment(s): Repaired ruptured disks in neck- fusion. Right knee replacement surgery. Bilat shoulder rotator cuff surgery. Past Anesthesia/Blood Transfusion Reactions: No Reported Reaction Past Psychological History: No Psychological Hx Reported Smoking Status: Current every day smoker Past Alcohol Use History: Rare Additional Past Alcohol Use History / Comment(s): SMOKED [id number], 1 PPD; NOW OCC CIGAR Past Drug Use History: None Reported - Past Family History Father Family Medical History: Cancer Mother Family Medical History: Cancer Medications and Allergies Home Medications Medication Instructions Recorded Confirmed Type Aspirin EC [Ecotrin Low Dose] 81 mg PO DAILY 03/28/24 07/27/24 History Atorvastatin [Lipitor] 40 mg PO HS 03/28/24 07/27/24 History Cyclobenzaprine [Flexeril] 10 mg PO HS 03/28/24 07/27/24 History Sodium Bicarbonate Tab 650 mg PO BID 03/28/24 07/27/24 History Ascorbic Acid [Vitamin C] 1,000 mg PO DAILY 04/28/24 07/27/24 History Cyanocobalamin (Vitamin B-12) 1,000 mcg PO DAILY 04/28/24 07/27/24 History [Vitamin B-12] Metoprolol Tartrate [Lopressor] 12.5 mg PO BID 04/28/24 07/27/24 History Zinc Gluconate [Zinc] 50 mg PO DAILY 04/28/24 07/27/24 History metFORMIN HCL [Glucophage] 850 mg PO BID-W/MEALS 04/28/24 07/27/24 History Ezetimibe [Zetia] 10 mg PO HS 06/07/24 07/27/24 History Losartan [Cozaar] 50 mg PO HS 07/27/24 07/27/24 History Allergies Allergy/AdvReac Type Severity Reaction Status Date / Time Iodinated Contrast Media AdvReac BODY FELT Verified 07/27/24 18:48 [Iodinated Contrast Media - FROZEN Oral and] Physical Exam Vitals: Vital Signs Temp Pulse Pulse Resp BP BP Pulse Ox 07/28/24 09:25 18 07/28/24 07:38 98.6 F 60 18 103/58 95 07/28/24 01:18 98.4 F 62 16 110/68 100 07/27/24 20:37 98.0 F 64 18 140/73 98 07/27/24 20:04 98.1 F 60 18 105/58 99 07/27/24 18:38 56 L 115/56 96 07/27/24 17:16 66 13 119/72 97 07/27/24 16:28 62 23 118/69 98 07/27/24 14:36 97.7 F 69 18 122/75 99 Intake and Output 07/27/24 07/28/24 07/28/24 22:59 06:59 14:59 Other: Voiding Method Toilet Toilet # Voids 2 Weight 88.451 kg PHYSICAL EXAMINATION: GENERAL: Obese ,73-year-old, male, HOPI, A&O x3, NAD, speech clear and appropriate, no aphasia or dysarthria, nonfidgety. HEENT: EOMI, Sclerae anicteric, Moist Mucous membranes Neck: Supple, No JVD PULMONARY: Unlabored, equal air entry, clear to auscultation CARDIOVASCULAR: S1, S2 present. No murmurs, rubs, or gallops. ABDOMEN: Soft, nontender, nondistended, normoactive bowel sounds. No guarding or rebound tenderness. EXTREMITIES: No edema, No cyanosis. No clubbing. Peripheral pulses intact. NEUROLOGICAL: CN 2-12 grossly intact. No focal deficits, moves all extremities, strength and sensation grossly intact. Skin: Warm and dry, no rashes noted. Results CBC & Chem 7: 07/27/24 15:11 07/27/24 15:11 Labs: Abnormal Lab Results - Last 24 Hours (Table) 07/27/24 07/27/24 07/27/24 Range/Units 15:11 15:11 16:03 WBC 12.54 H (4.50-10.00) 10*3/uL RBC 4.20 L (4.40-5.60) 10*6/uL Hct 39.5 L (39.6-50.0) % MCH 33.6 H (27.0-32.0) pg MPV 8.7 L (9.5-12.2) fL Immature Gran # 0.06 H (0.00-0.04) 10*3/uL Neutrophils # 9.66 H (1.80-7.70) 10*3/uL Sodium 134 L (137-145) mmol/L Glucose 215 H (74-99) mg/dL POC Glucose (mg/dL) (70-110) mg/dL Urine Glucose (UA) Trace H (Negative) Urine Opiates Screen Detected H (NotDetected) U Tricyclic Antidepress Detected H (NotDetected) 07/27/24 Range/Units 17:33 WBC (4.50-10.00) 10*3/uL RBC (4.40-5.60) 10*6/uL Hct (39.6-50.0) % MCH (27.0-32.0) pg MPV (9.5-12.2) fL Immature Gran # (0.00-0.04) 10*3/uL Neutrophils # (1.80-7.70) 10*3/uL Sodium (137-145) mmol/L Glucose (74-99) mg/dL POC Glucose (mg/dL) 174 H (70-110) mg/dL Urine Glucose (UA) (Negative) Urine Opiates Screen (NotDetected) U Tricyclic Antidepress (NotDetected) Thrombosis Risk Factor Assmnt - Choose All That Apply Any of the Below Risk Factors Present?: Yes Each Factor Represents 1 point: Obesity (BMI >25) Each Risk Factor Represents 2 Points: Age 61-74 years Other congenital or acquired thrombophilia - If yes, enter type in comment: No Thrombosis Risk Factor Assessment Total Risk Factor Score: 3 Thrombosis Risk Factor Assessment Level: Moderate Risk Assessment and Plan Assessment: Altered mental status,acute metabolic encephalopathy, etiology unclear,recently completed neurowork-up in 03/28. Toxicology screen detected opiates and tricyclic antidepressants with serum alcohol less than 10. Leukocytosis, suspect reactive Hyponatremia, mild Recent sleep study 07/28 reporting no significant respiratory abnormalities during sleep study, periodic limb movements at the end of the sleep study. History of recent herpes zoster, shingles 04/29 History of postherpetic neuralgia History of normal pressure hydrocephalus, transferred to [facility] for neurology/neurosurgery evaluation 03/28. ALso evaluated at at [facility]. Diabetes mellitus type 2 Hypertension Hyperlipidemia Obesity, BMI 27.2 Ongoing nicotine dependence HOPI Plan: Continue on current medication regime ,monitoring and symptomatic treatment. IV fluid hydration. PPI ordered for GI prophylaxis .home meds have been reviewed and resumed accordingly. Neurology consult in place. Lantus added to med regimen with close monitoring of Accu-Cheks, hemoglobin A1c pending. This morning patient is asymptomatic,reports at baseline, no new complaints, eager for discharge. Patient will be discharged home today in a stable condition with guarded prognosis pending neurology evaluation, recommendations and clearance for discharge. Follow-up with PCP in 3 days. Discharge Medication List Aspirin EC [Ecotrin Low Dose] 81 mg PO DAILY 03/28/24 [History] Atorvastatin [Lipitor] 40 mg PO HS 03/28/24 [History] Cyclobenzaprine [Flexeril] 10 mg PO HS 03/28/24 [History] Sodium Bicarbonate Tab 650 mg PO BID 03/28/24 [History] Ascorbic Acid [Vitamin C] 1,000 mg PO DAILY 04/28/24 [History] Cyanocobalamin (Vitamin B-12) [Vitamin B-12] 1,000 mcg PO DAILY 04/28/24 [History] Metoprolol Tartrate [Lopressor] 12.5 mg PO BID 04/28/24 [History] Zinc Gluconate [Zinc] 50 mg PO DAILY 04/28/24 [History] metFORMIN HCL [Glucophage] 850 mg PO BID-W/MEALS 04/28/24 [History] Ezetimibe [Zetia] 10 mg PO HS 06/07/24 [History] Losartan [Cozaar] 50 mg PO HS 07/27/24 [History] The impression and plan of care has been dictated as directed. : I performed a history and examination of this patient, discussed the same with the dictator. I agree with the dictator's note ,documented as a scribe. Any ad ditional findings or plans will be noted.
[2024-07-28 14:16] VITALS: BP 100/59; PULSE 51; TEMP 98.2
--- NOTE | 2024-07-28 14:34 | P.CNNES ---
History of Present Illness Consult date: 07/28/24 Requesting physician: John Palma Reason for Consult: ams History of Present Illness: This is a 73-year-old gentleman with history of hydrocephalus, intermittent hyponatremia, hard of hearing, diabetes who presents to the emergency department because of altered mental status. Patient daughter is at bedside to provide the history. Seems that yesterday patient was confused and his girlfriend could not find him and he was not making sense and did not know the place time or surrounding. Episode lasted until he got the IV fluids according to the daughter. No seizure-like activity. Patient does not have any seizure or strokes in the past. Patient is back to baseline. He does not have any headache. He denies any focal weakness. Mr. Daughter, these confusion episodes are recurrent and he had extensive workup at [facility] as well as [facility] while hospitalized as an inpatient and he had EEGs as well as multiple MRIs and were unremarkable. According to the daughter he had a 24-hour EEG while at [facility] but that was later during his stay but not on initial presentation and it was unremarkable. He he was notified that he has hydrocephalus by [facility] as well as [facility] but per [facility] is not significant for intervention. He has an appointment with [facility] neurology team in October 2024. Past he had hyponatremia and it was felt due to medication induced at [facility] and his medication was modified and in the past was in the mid 1 120s but during this hospital visit was 134. Some of the workup during this hospital visit consisted of: Sodium is 134, glucose is 215. I reviewed the rest of the lab workup next Urine drug screen is positive for opiates and TCA. CT of the head is reported as no acute bleed or mass effect. Stable senescent changes. Stable senescent changes. Probable moderate to marked atrophy with a greater central component and mild ischemic white matter demyelination. I personally reviewed the CT and I agree there is no acute process. Patient does not have hydrocephalus. Review of Systems As per HPI. Past Medical History Past Medical History: Diabetes Mellitus, GERD/Reflux, Hearing Disorder / Deafness, Hyperlipidemia, Hypertension, Musculoskeletal Disorder Additional Past Medical History / Comment(s): RT UPPER ARM NT. PAIN IN NECK, LOWER BACK - HX OF PAIN INJ.. Hydrocephalus - march 2024, hyponatremia History of Any Multi-Drug Resistant Organisms: MRSA Date of last positivie culture/infection: 2006 MDRO Source:: RT WAISTLINE, TESTICLE Past Surgical History: Orthopedic Surgery Additional Past Surgical History / Comment(s): Repaired ruptured disks in neck- fusion. Right knee replacement surgery. Bilat shoulder rotator cuff surgery. Past Anesthesia/Blood Transfusion Reactions: No Reported Reaction Past Psychological History: No Psychological Hx Reported Smoking Status: Current every day smoker Past Alcohol Use History: Rare Additional Past Alcohol Use History / Comment(s): SMOKED [id number], 1 PPD; NOW OCC CIGAR Past Drug Use History: None Reported - Past Family History Father Family Medical History: Cancer Mother Family Medical History: Cancer Medications and Allergies Home Medications Medication Instructions Recorded Confirmed Type Aspirin EC [Ecotrin Low Dose] 81 mg PO DAILY 03/28/24 07/27/24 History Atorvastatin [Lipitor] 40 mg PO HS 03/28/24 07/27/24 History Cyclobenzaprine [Flexeril] 10 mg PO HS 03/28/24 07/27/24 History Sodium Bicarbonate Tab 650 mg PO BID 03/28/24 07/27/24 History Ascorbic Acid [Vitamin C] 1,000 mg PO DAILY 04/28/24 07/27/24 History Cyanocobalamin (Vitamin B-12) 1,000 mcg PO DAILY 04/28/24 07/27/24 History [Vitamin B-12] Metoprolol Tartrate [Lopressor] 12.5 mg PO BID 04/28/24 07/27/24 History Zinc Gluconate [Zinc] 50 mg PO DAILY 04/28/24 07/27/24 History metFORMIN HCL [Glucophage] 850 mg PO BID-W/MEALS 04/28/24 07/27/24 History Ezetimibe [Zetia] 10 mg PO HS 06/07/24 07/27/24 History Losartan [Cozaar] 50 mg PO HS 07/27/24 07/27/24 History Allergies Allergy/AdvReac Type Severity Reaction Status Date / Time Iodinated Contrast Media AdvReac BODY FELT Verified 07/27/24 18:48 [Iodinated Contrast Media - FROZEN Oral and] Physical Examination - Vital Signs Vital Signs: Vital Signs Temp Pulse Pulse Resp BP BP Pulse Ox 07/28/24 13:54 98.2 F 51 L 18 100/59 96 07/28/24 09:25 18 07/28/24 07:38 98.6 F 60 18 103/58 95 07/28/24 01:18 98.4 F 62 16 110/68 100 07/27/24 20:37 98.0 F 64 18 140/73 98 07/27/24 20:04 98.1 F 60 18 105/58 99 07/27/24 18:38 56 L 115/56 96 07/27/24 17:16 66 13 119/72 97 07/27/24 16:28 62 23 118/69 98 07/27/24 14:36 97.7 F 69 18 122/75 99 Intake and Output 07/27/24 07/28/24 07/28/24 22:59 06:59 14:59 Intake Total 100 Balance 100 Intake: Oral 100 Other: Voiding Method Toilet Toilet # Voids 2 Weight 88.451 kg GENERAL: The patient is lying in bed and is not in acute distress. NEUROLOGICAL: Higher mental function: The patient is awake, alert, oriented to self, place and time. Patient is following commands. No aphasia and no neglect. Cranial nerves: The pupils are round, equal and reactive to light and accommodation. Visual gil are full to confrontation throughout. Extraocular movement is intact no nystagmus is noted. Facial sensation is normal to touch throughout. The facial strength is normal throughout. Hearing is severely decreased bilaterally to hand rub. Tongue is midline and moved [id number] without any difficulty. No dysarthria is noted. Shoulder shrug is normal bilaterally. Motor: The strength is 5 over 5 throughout. Normal tone and bulk. Cerebellum: Normal finger to nose heel to osborne bilaterally. Sensation: Sensation is normal to touch throughout. Reflexes (right/left):2+ in uppers while lowers are 1+. Plantars are downgoing bilaterally. Results - Laboratory Findings CBC and BMP: 07/27/24 15:11 07/27/24 15:11 Abnormal Lab Findings: Abnormal Labs 07/27/24 07/27/24 07/27/24 15:11 15:11 16:03 WBC 12.54 H RBC 4.20 L Hct 39.5 L MCH 33.6 H MPV 8.7 L Immature Gran # 0.06 H Neutrophils # 9.66 H Sodium 134 L Glucose 215 H POC Glucose (mg/dL) Urine Glucose (UA) Trace H Urine Opiates Screen Detected H U Tricyclic Antidepress Detected H 07/27/24 07/28/24 17:33 11:58 WBC RBC Hct MCH MPV Immature Gran # Neutrophils # Sodium Glucose POC Glucose (mg/dL) 174 H 216 H Urine Glucose (UA) Urine Opiates Screen U Tricyclic Antidepress Assessment and Plan Assessment: This is a 73-year-old gentleman with history of hydrocephalus with recurrent episode of confusion, hyponatremia who presents to the emergency department because of altered mental status. Today he is back to baseline and does not have any focal deficit. CT of the head is unremarkable. Patient had multiple MRIs in the past as well as EEGs which were unremarkable for acute process or anything that would explain his symptoms. He was evaluated at [facility] as well as [facility] in March 2024. Altered mental status and encephalopathy of unknown etiology. CT of the head is unremarkable for any acute process--patient is back to baseline Altered mental status of unknown etiology. Patient had multiple MRIs as well as EEGs at outside hospital which was unremarkable for any acute process. He also had a routine EEG in our facility in 2023 which was negative for any seizure or discharges Hydrocephalus Diabetes mellitus Hypertension Very hard of hearing Plan: I recommend a prolonged EEG as an outpatient and that can be coordinated by his primary or outpatient neurologist. He currently has an appointment with the outpatient neurology team over [facility] in October 2024. He is on the cancellation list. I notified the patient that he can follow-up with a neurologist over at [facility] clinic since was seen by them in past for his back issues until his appointment with [facility]. Patient was counseled on shying away from driving especially because of his recurrent episode of confusion. He does not have a diagnosis of seizure yet for a formal restriction of driving. If he does have episode of unresponsiveness or syncopal episode then recommend avoid driving for 6 month until no further episode, avoid heights, avoid swimming unassisted or heavy machinery. Will defer the rest of the medical management to primary team The plan discussed with the patient and his daughters at bedside. Thank you for the consultation. There is no additional neurological workup. Will sign off. Please reconsult if needed Time with Patient: Greater than 30
== END 2024-07-28 15:12 | disposition home or self-care (01) ==
LOC: EC 14:31 → 4SSUR 17:58
PROVIDERS: ADMIT Family Medicine; ATTEND Family Medicine
DX: G93.41 Metabolic encephalopathy (principal); G91.2 (Idiopathic) normal pressure hydrocephalus; H91.90 Unspecified hearing loss, unspecified ear; E11.9 Type 2 diabetes mellitus without complications; E87.1 Hypo-osmolality and hyponatremia; D72.829 Elevated white blood cell count, unspecified; K21.9 Gastro-esophageal reflux disease without esophagitis; E78.5 Hyperlipidemia, unspecified; I10 Essential (primary) hypertension; F17.200 Nicotine dependence, unspecified, uncomplicated; E66.9 Obesity, unspecified; Z68.27 Body mass index [BMI] 27.0-27.9, adult; Z79.82 Long term (current) use of aspirin; Z79.84 Long term (current) use of oral hypoglycemic drugs; Z79.899 Other long term (current) drug therapy
CPT/HCPCS: 96361 ×2; 96360; 99285; 36415; 93005; 80053; 84484; 85025; 85610; 85730; 81003; 80306; 70450; G0378 ×2; G0480; 80320